=== PATIENT | female | born 1950 | race Caucasian/White ===

== ENCOUNTER 2016-07-07 14:22 | Emergency (ER) | payer MEDICAID ==
[~2016-07-07] VITALS: Ht 167.6 cm; Wt 81.0 kg
[~2016-07-07 14:22] MED LIST: AMLO5TAB96 PO; ASPI81 CHEW; BENA10TA PO; CHLO500T13 PO; GABA400 PO; LEVO.075 PO; LORTA5 PO; MVI PO; NYSTT TOPICAL; POLY119S PO; RANI150 PO; TRAZ50TA4 PO; WALKER ROLLING; WHEEMIS3 XX
[2016-07-07 14:35] VITALS: BP 136/82; PULSE 69; RESP 18; TEMP 98.1; O2SAT 96
--- NOTE | 2016-07-07 14:37 | PD ---
HPI Chief Complaint: fall, hip pain Time Seen by Provider: 14:36 Travel History International Travel<30 days: No Contact w/Intl Traveler<30days: No Traveled to known affect area: No History of Present Illness HPI 66-year-old female who has cerebral palsy and lives alone at home fell yesterday and since then has been having difficulty bearing weight on her right hip due to pain. She called 911 and was brought in by EMS. Patient is fully awake and answering questions appropriately. She points to her right hip saying it hurts. Vital signs are otherwise stable. [facility] Past Medical History Narrative Medical List of her past medical history as reviewed from the nursing note. Arthritis: No Asthma: No Autoimmune Disease: No Blood Disorders: No Anxiety: Yes Depression: Yes Heart Rhythm Problems: No Cancer: No Cardiac Catheterization: No Cardiovascular Problems: Yes High Cholesterol: No Chemotherapy: No Chest Pain: No Congestive Heart Failure: No COPD: No Cerebrovascular Accident: Yes (1979) Diabetes: No Diminished Hearing: Yes (DEAF RIGHT EAR) Endocrine: Yes GERD: No Glaucoma: No Genitourinary: Yes (INCONTINENT) Headaches: No Hypertension: Yes Immune Disorder: No Implanted Vascular Access Dvce: Yes Kidney Stones: No Musculoskeletal: Yes (CEREBRAL PALSY) Neurologic: Yes (CEREBRAL PALSY) Psychiatric: Yes (PSYCHOTIC EPISODE JUNE 28) Reproductive: No Respiratory: No Migraines: No Myocardial Infarction: No Radiation Therapy: No Renal Failure: No Seizures: No Sickle Cell Disease: No Sleep Apnea: No Thyroid Disease: Yes Ulcer: No Menopausal: Yes : 2 Para: 2 Miscarriage: 0 : 0 Past Surgical History Abdominal Surgery: No AICD: No Appendectomy: No Arteriovenous Shunt: No Cardiac Surgery: No Cholecystectomy: No Coronary Artery Bypass Graft: No Ear Surgery: No Endocrine Surgery: No Eye Surgery: No Genitourinary Surgery: Yes (BLADDER RECONSTRUCTION IN 1961) Gynecologic Surgery: No Insulin Pump: No Joint Replacement: Yes (L HIP AND L KNEE) Neurologic Surgery: No Oral Surgery: No Pacemaker: No Thoracic Surgery: No Tonsillectomy: Yes (ADENOIDECTOMY) Other Surgery: Yes Social History Alcohol Use: No Tobacco Use: No Substance Use: No (HX OF ) Allergies-Medications (Allergen,Severity, Reaction): Coded Allergies: Penicillin (Verified Allergy, Severe, PCN CAUSES HIVES PER H&P, ) Sulfa (Verified Allergy, Severe, 05/10/16) Comments List of her allergies reviewed from the nursing note. Reported Meds & Prescriptions Reported Meds & Active Scripts Active Ibuprofen 400 Mg Tab 400 Mg PO Q8H PRN Macrobid (Nitrofurantoin Monoh/Nitrofur Macro) 100 Mg Cap 100 Mg PO BID 10 Days Reported Levothyroxine (Levothyroxine Sodium) 75 Mcg Tab 75 Mcg PO HS Gabapentin 400 Mg Cap 400 Cap PO HS Trazodone (Trazodone HCl) 50 Mg Tab 50 Mg PO HS PRN Chlorzoxazone 500 Mg Tab 500 Mg PO DAILY Benazepril (Benazepril HCl) 10 Mg Tab 10 Mg PO DAILY Omeprazole 20 Mg Cap 20 Mg PO DAILY Aspirin Children's (Aspirin) 81 Mg Chew 81 Mg CHEW HS Amlodipine (Amlodipine Besylate) 5 Mg Tab 5 Mg PO DAILY Narrative Medication List of her home medications reviewed from the nursing note. Review of Systems Except as stated in HPI: all other systems reviewed are Neg Physical Exam Narrative GENERAL: Awake, alert, cerebral palsy SKIN: Warm and dry. HEAD: Atraumatic. Normocephalic. EYES: Pupils equal and round. No scleral icterus. No injection or drainage. ENT: No nasal bleeding or discharge. Mucous membranes pink and moist. NECK: Trachea midline. No JVD. CARDIOVASCULAR: Regular rate and rhythm. No murmur appreciated. RESPIRATORY: No accessory muscle use. Clear to auscultation. Breath sounds equal bilaterally. GASTROINTESTINAL: Abdomen soft, non-tender, nondistended. Hepatic and splenic margins not palpable. MUSCULOSKELETAL: Right upper extremity chronic contracture from her cerebral palsy. No clubbing. No cyanosis. No edema. Right hip tenderness NEUROLOGICAL: Awake and alert. No obvious cranial nerve deficits. Motor grossly within normal limits. Dysarthria from cerebral palsy speech. PSYCHIATRIC: Appropriate mood and affect; insight and judgment normal. Data Data Last Documented VS Vital Signs Date Time Temp Pulse Resp B/P Pulse Ox O2 Delivery O2 Flow Rate FiO2 07/07/16 14:40 61 16 136/82 96 Room Air 07/07/16 14:35 98.1 Orders Electrocardiogram (07/07/16 14:37) Complete Blood Count With Diff (07/07/16 14:37) Act Partial Throm Time (Ptt) (07/07/16 14:37) Urinalysis - C+S If Indicated (07/07/16 14:37) Chest, Single Ap (07/07/16 14:37) Hip, Uni(Ap&Lat) Wo Ap Pelvis (07/07/16 14:37) Iv Access Insert/Monitor (07/07/16 14:37) Oximetry (07/07/16 14:37) Ecg Monitoring (07/07/16 14:37) Morphine Inj (Morphine Inj) (07/07/16 14:45) Ondansetron Inj (Zofran Inj) (07/07/16 14:45) Sodium Chloride 0.9% Flush (Ns Flush) (07/07/16 14:45) Basic Metabolic Panel (Bmp) (07/07/16 14:37) Sodium Chlor 0.9% 1000 Ml Inj (Ns 1000 M (07/07/16 14:45) Ct Pelvis W/O Iv Contrast (07/07/16 ) Urine Culture (07/07/16 15:50) Nitrofurantoin Monohyd Macrocr (Macrobid (07/07/16 16:45) Labs Laboratory Tests Test 07/07/16 07/07/16 15:00 15:50 Activated Partial 29.6 SEC Thromboplast Time Sodium Level 145 MEQ/L Potassium Level 3.9 MEQ/L Chloride Level 110 MEQ/L Carbon Dioxide Level 28.6 MEQ/L Anion Gap 6 MEQ/L Blood Urea Nitrogen 22 MG/DL Creatinine 0.89 MG/DL Estimat Glomerular Filtration 64 ML/MIN Rate Random Glucose 91 MG/DL Calcium Level 9.0 MG/DL White Blood Count 8.6 TH/MM3 Red Blood Count 4.31 MIL/MM3 Hemoglobin 12.9 GM/DL Hematocrit 39.0 % Mean Corpuscular Volume 90.5 FL Mean Corpuscular Hemoglobin 29.9 PG Mean Corpuscular Hemoglobin 33.1 % Concent Red Cell Distribution Width 13.8 % Platelet Count 263 TH/MM3 Mean Platelet Volume 7.1 FL Neutrophils (%) (Auto) 79.8 % Lymphocytes (%) (Auto) 12.2 % Monocytes (%) (Auto) 5.1 % Eosinophils (%) (Auto) 2.6 % Basophils (%) (Auto) 0.3 % Neutrophils # (Auto) 6.8 TH/MM3 Lymphocytes # (Auto) 1.0 TH/MM3 Monocytes # (Auto) 0.4 TH/MM3 Eosinophils # (Auto) 0.2 TH/MM3 Basophils # (Auto) 0.0 TH/MM3 CBC Comment DIFF FINAL Differential Comment Urine Color YELLOW Urine Turbidity HAZY Urine pH 5.5 Urine Specific Evans 1.016 Urine Protein TRACE mg/dL Urine Glucose (UA) NEG mg/dL Urine Ketones NEG mg/dL Urine Occult Blood MOD Urine Nitrite POS Urine Bilirubin NEG Urine Urobilinogen LESS THAN 2.0 MG/DL Urine Leukocyte Esterase LARGE Urine RBC 14 /hpf Urine WBC 99 /hpf Urine WBC Clumps MANY Urine Bacteria MANY /hpf Urine Hyaline Casts 1 /lpf Urine Mucus FEW /lpf Microscopic Urinalysis Comment CATH-CULTURE IND MDM Medical Decision Making Medical Screen Exam Complete: Yes Emergency Medical Condition: Yes Medical Record Reviewed: Yes Interpretation(s) Twelve-lead EKG was reviewed by me. Normal sinus rhythm, left axis deviation, left bundle branch block, bradycardia. Heart rate of 58 bpm. Differential Diagnosis Hip fracture, pelvic fracture Narrative Course 3:44 PM awaiting for the x-ray to be done and resulted. Blood test results are within normal limits. 4:36 PM the x-ray was read as negative. However given her pain and inability to bear weight i have ordered a CT scan of the pelvis. Awaiting for the CAT scan to be done and resulted. Her UA is suggestive of UTI and I'll give her a dose of Macrobid. 5:[address] scan was negative for acute fracture. Patient usually ambulates with a walker and we will try to have her ambulate. Patient will be discharged. Procedures EKG Prior to Arrival: No Diagnosis Primary Impression: Fall Qualified Code: W19.XXXA - Fall, initial encounter Additional Impressions: Hip strain Qualified Code: S76.011A - Hip strain, right, initial encounter UTI (urinary tract infection) Qualified Code: N39.0 - Urinary tract infection without hematuria, site unspecified Referrals: Primary Care Physician 2 days Additional Instructions: Please return to the ER if the condition worsens or any other new concerns. Otherwise take the medication as per the prescription direction and follow-up with your primary care in couple days. Med/Other Pt SpecificInfo: Prescription(s) given Scripts Ibuprofen 400 Mg [id number] Mg PO Q8H PRN (pain) #30 TAB Ref 0 Prov:Orin Alexandre MD 07/07/16 Nitrofurantoin Monohydrate Macrocrystals (Macrobid)100 Mg [id number] Mg PO BID 10 Days Ref 0 Prov:Orin Alexandre MD 07/07/16 Disposition: 01 DISCHARGE HOME Condition: Stable Orin Alexandre MD Jul 07, 2016 14:37
[2016-07-07 14:40] VITALS: BP 136/82; PULSE 61; RESP 16; O2SAT 96
[2016-07-07] MEDS ORDERED: SODIUM CHLOR 0.9% 1000 ML INJ 1,000 ML IV ONE (14:45)
[2016-07-07] MEDS ORDERED: SODIUM CHLORIDE 0.9% FLUSH 5 ML FLUSH IVF PRN (14:45)
[2016-07-07] MEDS ORDERED: ONDANSETRON HCL 4 MG/2 ML VIAL IVP ONE (14:45)
[2016-07-07] MEDS ORDERED: MORPHINE SULFATE 4 MG/ML INJ IV PUSH ONE (14:45)
[2016-07-07 15:11] LABS: AUTOMATED NEUTROPHIL # 6.8 TH/MM3 (1.8-7.7); BASOPHIL % 0.3 % (0.0-2.0); EOSINOPHIL # 0.2 TH/MM3 (0-0.4); EOSINOPHIL % 2.6 % (0.0-4.0); HEMO FLAGS DIFF FINAL; LYMPH % 12.2 % (9.0-44.0); MEAN CELL VOLUME 90.5 FL (80.0-100.0); MEAN CORPUSCULAR HEMOGLOBIN 29.9 PG (27.0-34.0); MEAN CORPUSCULAR HGB CONC 33.1 % (32.0-36.0); MONO % 5.1 % (0.0-8.0); NEUT % 79.8 % (16.0-70.0); PLATELET COUNT 263 TH/MM3 (150-450); RED BLOOD COUNT 4.31 MIL/MM3 (4.00-5.30); RED CELL DISTRIBUTION WIDTH 13.8 % (11.6-17.2); WHITE BLOOD COUNT 8.6 TH/MM3 (4.0-11.0)
[2016-07-07 15:25] LABS: APTT (PATIENT) 29.6 SEC (24.3-30.1)
[2016-07-07 15:31] LABS: BICARBONATE 28.6 MEQ/L (21.0-32.0); POTASSIUM 3.9 MEQ/L (3.5-5.1)
--- NOTE | 2016-07-07 16:02 | RADRPT ---
EXAM DATE/TIME: 07/07/2016 15:39 [facility] COMPARISON: CHEST SINGLE AP, April 04, 2016, 16:19. INDICATIONS : Fell one week ago, pain right side MEDICAL HISTORY : cerebral palsy SURGICAL HISTORY : left hip ENCOUNTER: Initial ACUITY: 1 week PAIN SCORE: 2/10 LOCATION: Bilateral chest FINDINGS: The chest is stable in appearance. Calcified granulomas and calcified mediastinal lymph nodes are aga in noted. There is no evidence of acute air space disease or pneumothorax. The rib cage is grossly in tact. Heart and mediastinal structures are stable. CONCLUSION: No acute disease. Thom Rutherford MD on July 07, 2016 at 15:59 Board Certified Radiologist. This report was verified electronically.
--- NOTE | 2016-07-07 16:04 | RADRPT ---
EXAM DATE/TIME: 07/07/2016 15:39 [facility] COMPARISON: HIP RIGHT (AP & LAT), April 10, 2014, 17:26. INDICATIONS : Fell one week ago, pain right hip when bearing weight MEDICAL HISTORY : cerebral palsy SURGICAL HISTORY : left hip replacement ENCOUNTER: Initial ACUITY: 1 week PAIN SCORE: 6/10 LOCATION: Right hip FINDINGS: A two view examination of the right hip was performed. The primary and secondary trabecular pattern of the femoral neck is intact. The hip joint is of normal width without significant sclerosis or bon y hypertrophy. The acetabulum is grossly intact. Soft tissue granulomas are present CONCLUSION: There is no evidence of acute fracture. Je Hair MD on July 07, 2016 at 16:00 Board Certified Radiologist. This report was verified electronically.
[2016-07-07 16:15] LABS: BACTERIA, URINE MANY /hpf; BLOOD, URINE MOD (NEG); COMMENT (UR) CATH-CULTURE IND; CULTURE IF INDICATED CATH CULTURE IND; GLUCOSE,URINE NEG (NEG); HYALINE CAST, URINE 1 /lpf (RARE); KETONE, URINE NEG (NEG); MUCUS URINE FEW /lpf (OCC); PH, URINE 5.5 (5.0-8.5); URINE COLOR YELLOW (YELLW/STRAW)
[2016-07-07 16:17] LABS: NITRITE,URINE POS (NEG)
[2016-07-07] MEDS ORDERED: NITROFURANTOIN MONOHYD MACROCR 100 MG CAP PO ONE (16:45)
[2016-07-07] MEDS ORDERED: AMLO5TAB2 PO (17:07)
[2016-07-07] MEDS ORDERED: ASPI81CH7 CHEW (17:07)
[2016-07-07] MEDS ORDERED: OMEP20TA PO (17:07)
--- NOTE | 2016-07-07 17:07 | RADRPT ---
EXAM DATE/TIME: 07/07/2016 16:25 [facility] COMPARISON: No previous studies available for comparison. INDICATIONS : Fall with right leg and hip pain. ORAL CONTRAST: No oral contrast ingested. RADIATION DOSE: 12.22 CTDIvol (mGy) MEDICAL HISTORY : Hypertension. Cerebral palsy. SURGICAL HISTORY : Total knee replacement, left. Bladder reconstruction. ENCOUNTER: Initial ACUITY: 4 - 6 days PAIN SCALE: 7/10 LOCATION: Right hip TECHNIQUE: Volumetric scanning of the pelvis was performed. Using automated exposure control and adjustment of the mA and/or kV according to patient size, radiation dose was kept as low as reasonab ly achievable to obtain optimal diagnostic quality images. FINDINGS: The patient has a left hip prosthesis in place. This does cause some streak artifact i n the pelvis. An acute fracture is not clearly identified. The right hip joint appears normally ali gned. There is some degenerative change in the lower lumbar spine. There is a small amount of air seen within the bladder. This should be correlated if the patient has recently been catheterized. The remaining structures in the pelvis appear unremarkable. CONCLUSION: 1. An acute fracture is not clearly seen. 2. Air within the urinary bladder. Adam Marrero MD on July 07, 2016 at 16:58 Board Certified Radiologist. This report was verified electronically.
[2016-07-07] MEDS ORDERED: TRAZ50TA12 PO (17:11)
[2016-07-07] MEDS ORDERED: CHLO500T13 PO (17:11)
[2016-07-07] MEDS ORDERED: LEVO75TA3 PO (17:11)
[2016-07-07] MEDS ORDERED: GABA400C5 PO (17:11)
[2016-07-07] MEDS ORDERED: BENA10TA PO (17:11)
[2016-07-07] MEDS ORDERED: OMEP20CA2 PO (17:11)
[2016-07-07] MEDS ORDERED: MACR100C2 PO (17:16)
[2016-07-07] MEDS ORDERED: IBUP400T20 PO (17:16)
--- NOTE | 2016-07-08 20:38 | EKG ---
Date Performed: 07/07/2016 Time Performed: 14:48:52 PTAGE: 66 years EKG: SINUS BRADYCARDIA LEFT BUNDLE BRANCH BLOCK ABNORMAL ECG PREVIOUS TRACING : 07/28/2015 14.15 Compared to the previous tracing, rate faster DOCTOR: Jamir Quiroz Interpretating Date/Time 07/08/2016 20:37:16
== END 2016-07-07 18:44 | disposition home or self-care (01) ==
LOC: NEPA 14:22
DX: S76.011A Strain of muscle, fascia and tendon of right hip, initial encounter (principal); N39.0 Urinary tract infection, site not specified; G80.9 Cerebral palsy, unspecified; R94.31 Abnormal electrocardiogram [ECG] [EKG]; I10 Essential (primary) hypertension; E07.9 Disorder of thyroid, unspecified; W19.XXXA Unspecified fall, initial encounter; Y92.009 Unspecified place in unspecified non-institutional (private) residence as the place of occurrence of the external cause; B96.20 Unspecified Escherichia coli [E. coli] as the cause of diseases classified elsewhere
CPT/HCPCS: 71010; 72192; 73502; 80048; 81001; 85025; 85730; 87077; 87086; 87186; 93005; 96361; 96374; 96375; 99284; J2270; J2405; J7030

== ENCOUNTER 2016-08-16 12:12 | Emergency (ER) | payer MEDICAID ==
[~2016-08-16] VITALS: Ht 167.6 cm; Wt 68.0 kg
[~2016-08-16 12:12] MED LIST changes: +AMLO5TAB2 PO; -AMLO5TAB96 PO; -ASPI81 CHEW; +ASPI81CH7 CHEW; -GABA400 PO; +GABA400C5 PO; +IBUP400T20 PO; -LEVO.075 PO; +LEVO75TA3 PO; -LORTA5 PO; +MACR100C2 PO; -MVI PO; -NYSTT TOPICAL; +OMEP20CA2 PO; -POLY119S PO; -RANI150 PO; +TRAZ50TA12 PO; -TRAZ50TA4 PO; -WALKER ROLLING; -WHEEMIS3 XX
[2016-08-16 12:16] VITALS: BP 139/63; PULSE 60; RESP 20; O2SAT 99
--- NOTE | 2016-08-16 12:34 | PD ---
HPI Chief Complaint: ENT Complaint Time Seen by Provider: 12:20 Travel History International Travel<30 days: No Contact w/Intl Traveler<30days: No Traveled to known affect area: No History of Present Illness HPI This is a 66-year-old female with history of cerebral palsy who presents for evaluation of left ear cerumen impaction. She reports that she is chronically deaf in her right ear, partially deaf in her left ear. The past 6 months or left ear has felt clogged. She saw her primary care physician last month, Dr. Askew, who prescribed her some eardrops in order to help soften her cerumen impaction. She just got them filled last week and she continues to have a clog sensation in her left ear which prompted evaluation today. Denies any pain or drainage from the ear. She has no other complaints at this time. History Past Medical Histgory Menopausal: Yes Hx Cancer: No Hx Chemotherapy: No Hx Radiation Therapy: No Social History Alcohol Use: No Tobacco Use: No Allergies-Medications (Allergen,Severity, Reaction): Coded Allergies: Penicillin (Verified Allergy, Severe, PCN CAUSES HIVES PER H&P, 08/16/16 ) Sulfa (Verified Allergy, Severe, 08/16/16) Reported Meds & Prescriptions Reported Meds & Active Scripts Active Ibuprofen 400 Mg Tab 400 Mg PO Q8H PRN Macrobid (Nitrofurantoin Monoh/Nitrofur Macro) 100 Mg Cap 100 Mg PO BID 10 Days Reported Levothyroxine (Levothyroxine Sodium) 75 Mcg Tab 75 Mcg PO HS Gabapentin 400 Mg Cap 400 Cap PO HS Trazodone (Trazodone HCl) 50 Mg Tab 50 Mg PO HS PRN Chlorzoxazone 500 Mg Tab 500 Mg PO DAILY Benazepril (Benazepril HCl) 10 Mg Tab 10 Mg PO DAILY Omeprazole 20 Mg Cap 20 Mg PO DAILY Aspirin Children's (Aspirin) 81 Mg Chew 81 Mg CHEW HS Amlodipine (Amlodipine Besylate) 5 Mg Tab 5 Mg PO DAILY Review of Systems HENT: Positive: Other (decreased hearing left ear), No: Congestion, Dental Difficulties, Ear Discharge, Earache Respiratory: No: Cough Physical Exam Narrative GENERAL: Well-developed well-nourished female in no acute distress SKIN: Warm and dry. HEAD: Atraumatic. Normocephalic. EYES: Pupils equal and round. No scleral icterus. No injection or drainage. ENT: No nasal bleeding or discharge. Mucous membranes pink and moist. Right tympanic membrane is fully visualized without erythema or fluid level or perforation. Left ear examination reveals a cerumen impaction. NECK: Trachea midline. No JVD. No lymphadenopathy. CARDIOVASCULAR: Regular rate and rhythm. No murmur appreciated. RESPIRATORY: No accessory muscle use. Clear to auscultation. Breath sounds equal bilaterally. Data Data Last Documented VS Vital Signs Date Time Temp Pulse Resp B/P Pulse Ox O2 Delivery O2 Flow Rate FiO2 08/16/16 12:16 60 20 139/63 99 Room Air MDM Medical Screen Exam Complete: Yes Emergency Medical Condition: No Narrative Course This is a patient has had decreased hearing in her left ear for the past 6 months, found to have a cerumen impaction in her left ear by her primary care physician last month prescribed some topical otic drops. She now presents today with continued decreased hearing in the left ear. Examination reveals a cerumen impaction. Ideally this patient would follow up with her primary care physician and have the left ear irrigated. If she remains for treatment then the left ear will be irrigated. A medical screening exam was performed: At the time of evaluation the presenting medical condition was determined not to be of an emergent nature. The patient was given the option of receiving additional care, and accepted. The nurse successfully irrigated the left ear canal and the patient has improved hearing. She is stable for discharge. Primary Impression: Left ear impacted cerumen Additional Instructions: Follow-up with primary care physician. Return for any emergent medical conditions. Med/Other Pt SpecificInfo: No Change to Meds Disposition: 01 DISCHARGE HOME Condition: Stable Danyel Chavez Aug 16, 2016 12:34
== END 2016-08-16 14:00 | disposition home or self-care (01) ==
LOC: NEPB 12:12
DX: H61.22 Impacted cerumen, left ear (principal); G80.9 Cerebral palsy, unspecified
CPT/HCPCS: 99283

== ENCOUNTER 2016-11-27 15:18 | Observation (INO) | payer MEDICAID ==
[2016-11-27] VITALS (7 sets, daily range): BP systolic 134–168; BP diastolic 67–85; PULSE 78–81; RESP 18–20; TEMP 97.6–98.2; O2SAT 96–99
[~2016-11-27] VITALS: Ht 160 cm; Wt 60.0 kg
--- NOTE | 2016-11-27 15:31 | PD ---
Physical Exam Date Seen by Provider: Nov 27, 2016 Time Seen by Provider: 15:30 Data Data Last Documented VS Vital Signs Date Time Temp Pulse Resp B/P Pulse Ox O2 Delivery O2 Flow Rate FiO2 11/27/16 15:31 97.6 81 18 168/79 99 MDM Supervised Visit with MARLYS: No Narrative Course 66 YO F arrives by EMS for evaluation of "6 week" history of constipation. Denies abdominal pain. Endorses watery BM today. Vitals reviewed. Awaiting bed placement. Bev Caro Nov 27, 2016 15:31
[2016-11-27] MEDS ORDERED: SODIUM CHLORIDE 0.9% FLUSH 10 ML FLUSH IV FLUSH PRN ×2 (16:15→18:15)
--- NOTE | 2016-11-27 16:33 | PD ---
HPI Chief Complaint: Pain: Acute or Chronic Time Seen by Provider: 16:00 Travel History International Travel<30 days: No Contact w/Intl Traveler<30days: No Traveled to known affect area: No History of Present Illness HPI Patient comes in plan of constipation 6 weeks. Patient states she has not had a normal bowel movement in 6 weeks. Patient tried [id number]-[id number] laxatives with minimal to no relief of her symptoms. Patient states she is had a small bowel movement today but has not been able to get herself to go completely. Patient reports intermittent cramping pain in left lower quadrant of abdomen without radiation. Patient reports associated nausea but denies any vomiting. Denies any darkening of the stool. Patient states she had some liquidy stool today after taking laxatives. Patient has a history of cerebral palsy and normally ambulates with assistance of a walker. PFSH Past Medical History Arthritis: No Asthma: No Autoimmune Disease: No Blood Disorders: No Anxiety: Yes Depression: Yes Heart Rhythm Problems: No Cancer: No Cardiac Catheterization: No Cardiovascular Problems: Yes High Cholesterol: No Chemotherapy: No Chest Pain: No Congestive Heart Failure: No COPD: No Cerebrovascular Accident: Yes (1979) Diabetes: No Diminished Hearing: Yes (DEAF RIGHT EAR) Endocrine: Yes GERD: No Glaucoma: No Genitourinary: Yes (INCONTINENT) Headaches: No Hypertension: Yes Immune Disorder: No Implanted Vascular Access Dvce: Yes Kidney Stones: No Musculoskeletal: Yes (CEREBRAL PALSY) Neurologic: Yes (CEREBRAL PALSY) Psychiatric: Yes (PSYCHOTIC EPISODE JUNE 28) Reproductive: No Respiratory: No Migraines: No Myocardial Infarction: No Radiation Therapy: No Renal Failure: No Seizures: No Sickle Cell Disease: No Sleep Apnea: No Thyroid Disease: Yes Ulcer: No Menopausal: Yes : 2 Para: 2 Miscarriage: 0 : 0 Past Surgical History Abdominal Surgery: No AICD: No Appendectomy: No Arteriovenous Shunt: No Cardiac Surgery: No Cholecystectomy: No Coronary Artery Bypass Graft: No Ear Surgery: No Endocrine Surgery: No Eye Surgery: No Genitourinary Surgery: Yes (BLADDER RECONSTRUCTION IN 1961) Gynecologic Surgery: No Insulin Pump: No Joint Replacement: Yes (L HIP AND L KNEE) Neurologic Surgery: No Oral Surgery: No Pacemaker: No Thoracic Surgery: No Tonsillectomy: Yes (ADENOIDECTOMY) Other Surgery: Yes Social History Alcohol Use: No Tobacco Use: No Substance Use: No Allergies-Medications (Allergen,Severity, Reaction): Coded Allergies: Penicillin (Verified Allergy, Severe, PCN CAUSES HIVES PER H&P, 11/27/16) Sulfa (Verified Allergy, Severe, 11/27/16) Reported Meds & Prescriptions Reported Meds & Active Scripts Active Ibuprofen 400 Mg Tab 400 Mg PO Q8H PRN Reported Levothyroxine (Levothyroxine Sodium) 75 Mcg Tab 75 Mcg PO HS Gabapentin 400 Mg Cap 400 Cap PO HS Trazodone (Trazodone HCl) 50 Mg Tab 50 Mg PO HS PRN Benazepril (Benazepril HCl) 10 Mg Tab 10 Mg PO DAILY Omeprazole 20 Mg Cap 20 Mg PO DAILY Aspirin Children's (Aspirin) 81 Mg Chew 81 Mg CHEW HS Amlodipine (Amlodipine Besylate) 5 Mg Tab 5 Mg PO DAILY Review of Systems Except as stated in HPI: all other systems reviewed are Neg Physical Exam Narrative GENERAL: Well-developed, overly nourished, in no acute distress, and non-ill appearing. SKIN: Focused skin assessment warm and dry. HEAD: Atraumatic. Normocephalic. EYES: Pupils equal and round. EOMI. No scleral icterus. No injection or drainage. ENT: No nasal bleeding or discharge. Mucous membranes pink and moist. NECK: Trachea midline. Supple. No nuclear rigidity. CARDIOVASCULAR: Regular rate and rhythm. No murmur appreciated. RESPIRATORY: No accessory muscle use. No respiratory distress. Clear to auscultation. Breath sounds equal bilaterally. GASTROINTESTINAL: Abdomen soft, nondistended, without guarding. Hepatic and splenic margins not palpable. Normal bowel sounds 4. No pulsatile mass. Patient reports tenderness to palpation left lower quadrant. Rectal exam shows moderate amount of firm pebble feeling fecal debris in the rectum with liquidy greenish stool noted. This exam was performed presence of staffing assistant Ed and professional nursing tutor at all times. MUSCULOSKELETAL: No obvious deformities. No clubbing. No cyanosis. No edema. Full range of motion. NEUROLOGICAL: Awake and alert. No obvious cranial nerve deficits. Motor grossly within normal limits for patient. Normal speech for patient. PSYCHIATRIC: Appropriate mood and affect; insight and judgment normal. Data Data Last Documented VS Vital Signs Date Time Temp Pulse Resp B/P Pulse Ox O2 Delivery O2 Flow Rate FiO2 11/27/16 15:31 97.6 81 18 168/79 99 Orders Complete Blood Count With Diff (6/9/17 16:08) Comprehensive Metabolic Panel (11/27/16 16:08) Lipase (11/27/16 16:08) Prothrombin Time / Inr (Pt) (11/27/16 16:08) Act Partial Throm Time (Ptt) (11/27/16 16:08) Ct Abd/Pel W/O Iv Contrast (11/27/16 16:08) Iv Access Insert/Monitor (11/27/16 16:08) Ecg Monitoring (11/27/16 16:08) Oximetry (11/27/16 16:08) Sodium Chloride 0.9% Flush (Ns Flush) (11/27/16 16:15) Fleets Enema (Adult) (Fleets Enema (Adul (11/27/16 17:45) Admit Order (Ed Use Only) (11/27/16 18:08) Labs Laboratory Tests Test 11/27/16 16:05 White Blood Count 6.9 TH/MM3 Red Blood Count 4.66 MIL/MM3 Hemoglobin 13.2 GM/DL Hematocrit 40.4 % Mean Corpuscular Volume 86.7 FL Mean Corpuscular Hemoglobin 28.4 PG Mean Corpuscular Hemoglobin 32.7 % Concent Red Cell Distribution Width 13.6 % Platelet Count 245 TH/MM3 Mean Platelet Volume 7.9 FL Neutrophils (%) (Auto) 82.3 % Lymphocytes (%) (Auto) 10.3 % Monocytes (%) (Auto) 6.1 % Eosinophils (%) (Auto) 0.7 % Basophils (%) (Auto) 0.6 % Neutrophils # (Auto) 5.7 TH/MM3 Lymphocytes # (Auto) 0.7 TH/MM3 Monocytes # (Auto) 0.4 TH/MM3 Eosinophils # (Auto) 0.1 TH/MM3 Basophils # (Auto) 0.0 TH/MM3 CBC Comment DIFF FINAL Differential Comment Prothrombin Time 10.7 SEC Prothromb Time International 1.0 RATIO Ratio Activated Partial 26.5 SEC Thromboplast Time Sodium Level 143 MEQ/L Potassium Level 3.8 MEQ/L Chloride Level 108 MEQ/L Carbon Dioxide Level 26.8 MEQ/L Anion Gap 8 MEQ/L Blood Urea Nitrogen 15 MG/DL Creatinine 0.90 MG/DL Estimat Glomerular Filtration 63 ML/MIN Rate Random Glucose 104 MG/DL Calcium Level 9.1 MG/DL Total Bilirubin 0.5 MG/DL Aspartate Amino Transf 16 U/L (AST/SGOT) Alanine Aminotransferase 15 U/L (ALT/SGPT) Alkaline Phosphatase 79 U/L Total Protein 7.5 GM/DL Albumin 3.4 GM/DL Lipase 142 U/L MDM Medical Decision Making Medical Screen Exam Complete: Yes Emergency Medical Condition: Yes Interpretation(s) CT abdomen and pelvis shows: 1. Large bolus of stool in the rectum with air-fluid levels in the colon. 2. There is no small bowel dilatation. 3. Impaction would be a consideration. 4. Small kidneys, right smaller than left. 5. Granulomas in lung and spleen. Differential Diagnosis Constipation, fecal impaction, toxic megacolon, mass, electrolyte abnormality, dehydration, other Narrative Course Patient was seen and examined. IV was established and patient was placed on a diagnostic cardiac sonographer. Initial laboratory radiologic pulses were obtained and reviewed. Discussed patient with Dr. Bailey, who recommends giving an enema and have patient admitted for fecal impaction. Discussed all findings and plan care of patient was agreeable for admission. All questions were answered. Patient remained stable throughout ED course. Physician Communication Physician Communication [phone] Paul, who is agreeable to admit the patient. Diagnosis Primary Impression: Impaction of colon Admitting Information Admitting Physician Requests: Observation Condition: Stable Alex Espinosa Nov 27, 2016 16:33
[2016-11-27 16:43] LABS: AUTOMATED NEUTROPHIL # 5.7 TH/MM3 (1.8-7.7); BASOPHIL % 0.6 % (0.0-2.0); EOSINOPHIL # 0.1 TH/MM3 (0-0.4); EOSINOPHIL % 0.7 % (0.0-4.0); HEMATOCRIT 40.4 % (35.0-46.0); HEMO FLAGS DIFF FINAL; LYMPH % 10.3 % (9.0-44.0); LYMPHOCYTE # 0.7 TH/MM3 (1.0-4.8); MEAN CELL VOLUME 86.7 FL (80.0-100.0); MEAN CORPUSCULAR HEMOGLOBIN 28.4 PG (27.0-34.0); MEAN CORPUSCULAR HGB CONC 32.7 % (32.0-36.0); MONO % 6.1 % (0.0-8.0); NEUT % 82.3 % (16.0-70.0); PLATELET COUNT 245 TH/MM3 (150-450); RED BLOOD COUNT 4.66 MIL/MM3 (4.00-5.30); RED CELL DISTRIBUTION WIDTH 13.6 % (11.6-17.2); WHITE BLOOD COUNT 6.9 TH/MM3 (4.0-11.0)
[2016-11-27 16:54] LABS: APTT (PATIENT) 26.5 SEC (24.3-30.1); PROTHROMBIN TIME - PATIENT 10.7 SEC (9.8-11.6)
[2016-11-27 17:00] LABS: ANION GAP 8 MEQ/L (5-15); AST (GOT) 16 U/L (15-37); BICARBONATE 26.8 MEQ/L (21.0-32.0); BLOOD UREA NITROGEN 15 MG/DL (7-18); CHLORIDE 108 MEQ/L (98-107); GLOMERULAR FILTRATION RATE 63 ML/MIN (>89); POTASSIUM 3.8 MEQ/L (3.5-5.1); SODIUM (NA) 143 MEQ/L (136-145)
[2016-11-27 17:02] LABS: ALKALINE PHOSPHATASE 79 U/L (45-117); ALT (GPT) 15 U/L (10-53); TOTAL BILIRUBIN ADULT 0.5 MG/DL (0.2-1.0)
--- NOTE | 2016-11-27 17:36 | RADRPT ---
EXAM DATE/TIME: 11/27/2016 16:58 [place] COMPARISON: No previous studies available for comparison. INDICATIONS : Constipation for 6 weeks. ORAL CONTRAST: No oral contrast ingested. RADIATION DOSE: 10.42 CTDIvol (mGy) MEDICAL HISTORY : Cerebrovascular disease. Cardiovascular disease. Hypertension. SURGICAL HISTORY : None. ENCOUNTER: Initial ACUITY: 2 months PAIN SCALE: 0/10 LOCATION: Bilateral abdomen. TECHNIQUE: Volumetric scanning of the abdomen and pelvis was performed. Using automated exposure control and ad justment of the mA and/or kV according to patient size, radiation dose was kept as low as reasonably achievable to obtain optimal diagnostic quality images. FINDINGS: Scattered granulomas are seen in both lungs that appear well calcified. There is no pericardial effusion. Multiple gallstones are noted, congregated in the neck of the gallbladder. Liver is free of focal defects. Granulomas are present in the spleen. Pancreas is unremarkable. Th ere is no intrahepatic biliary duct dilatation. Adrenal glands appear normal. Both kidneys are small, right smaller than the left. A nonobstructing stone is seen on the right. Moderate liquid stool is seen in the ascending and transverse colon. Solid stool is seen in the desc ending colon into the pelvis. Multiple diverticula are evident without diverticulitis. Large bolus of stool is present in the rectum. There is no significant small bowel dilatation. CONCLUSION: 1. Large bolus of stool in the rectum with air-fluid levels in the colon. 2. There is no small bowel dilatation. 3. Impaction would be a consideration. 4. Small kidneys, right smaller than left. 5. Granulomas in lung and spleen. Danielito Jimenez MD FACR on November 27, 2016 at 17:23 Board Certified Radiologist. This report was verified electronically.
[2016-11-27] MEDS ORDERED: SOD PHOSPHATE/SOD BIPHOSPHATE (ADULT) ENEMA 133ML RECTAL ONE (17:45)
[2016-11-27] MEDS ORDERED: ACETAMINOPHEN/HYDROcodone 325 MG/7.5 MG TAB PO PRN (18:15)
[2016-11-27] MEDS ORDERED: NALOXONE HCL 0.4 MG/ML AMP IV PRN (18:15)
[2016-11-27] MEDS ORDERED: ACETAMINOPHEN 325 MG TAB PO PRN (18:15)
[2016-11-27] MEDS ORDERED: ONDANSETRON HCL 4 MG/2 ML VIAL IVP PRN (18:15)
[2016-11-27] MEDS ORDERED: SENNOSIDES 8.6 MG TAB PO PRN (18:15)
[2016-11-27] MEDS ORDERED: BISACODYL 10 MG SUPP RECTAL PRN (18:15)
[2016-11-27] MEDS ORDERED: traZODone HCL 50 MG TAB PO PRN (18:15)
[2016-11-27] MEDS ORDERED: LACTULOSE SYRUP 20 GM/30 ML CUP PO PRN (18:15)
[2016-11-27] MEDS ORDERED: oxyCODONE/ACETAMINOPHEN 5 MG/325 MG TAB PO PRN (18:15)
[2016-11-27] MEDS ORDERED: MORPHINE SULFATE 4 MG/ML INJ IV PRN ×2 (18:15)
[2016-11-27] MEDS ORDERED: MAGNESIUM HYDROXIDE SUSP 30 ML CUP PO PRN (18:15)
[2016-11-27] MEDS: SODIUM CHLOR 0.9% 1000 ML INJ 1,000 ML IV SCH (19:11)
--- NOTE | 2016-11-27 19:49 | HHI.HP ---
HPI Service [facility] Primary Care Physician Terence Askew DO Admission Diagnosis fecal impaction Diagnoses: (1) Fecal impaction Diagnosis: Principal (2) Dehydration Diagnosis: Principal (3) HTN (hypertension) Diagnosis: Principal Travel History International Travel<30 Days: No Contact w/Intl Traveler <30 Da: No Traveled to Known Affected Are: No History of Present Illness This is a 66-year-old female with a PMH of Anxiety, Depression, HTN, Cerebral Palsy and h/o CVA who presented to the ER w/ complaints of constipation x6 wks. States she's tried multiple over the counter medications w/ no relief. Reports associated abdominal pain and nausea, but no vomiting or diarrhea. On arrival, BP 168/79, HR 81, O2 sat 99% on RA, Afebrile. CBC unremarkable except for elevated neutrophil count. Chemistry unremarkable except for GFR 63. BUN/ Creatinine normal. INR 1.0. CT Abd/Pelvis w/ large bolus of stool in the rectum with air fluid levels in the colon, no small bowel dilatation, consideration for impaction. S/p enema in ER w/ minimal improvement. GI Consult called in by ER doc. Review of Systems Except as stated in HPI: all other systems reviewed are Neg ROS: 14 point review of systems otherwise negative. Past Family Social History Past Medical History PMH: Anxiety, Depression, HTN, Cerebral Palsy and h/o CVA Past Surgical History PAST SURGICAL HISTORY: Bladder Reconstruction, Left Hip Replacement, Left Knee Replacement, Tonsillectomy Allergies: Coded Allergies: Penicillin (Verified Allergy, Severe, PCN CAUSES HIVES PER H&P, 11/27/16) Sulfa (Verified Allergy, Severe, 11/27/16) Family History PAST FAMILY HISTORY: Reviewed. No h/o DM or CAD Social History PAST SOCIAL HISTORY: Negative for alcohol, tobacco or drugs. Physical Exam Vital Signs Vital Signs Date Time Temp Pulse Resp B/P Pulse Ox O2 Delivery O2 Flow Rate FiO2 11/27/16 19:34 99 21 11/27/16 19:20 78 18 160/80 99 11/27/16 18:35 80 20 166/85 96 11/27/16 16:40 96 11/27/16 15:31 97.6 81 18 168/79 99 Physical Exam PE: GENERAL: Middle-aged female in no acute distress. HEENT: PERRLA, EOMI. No scleral icterus or conjunctival pallor. No lid lag or facial droop. CARDIOVASCULAR: Regular rate and rhythm. No obvious murmurs to auscultation. No chest tenderness to palpation. RESPIRATORY: No obvious rhonchi or wheezing. Clear to auscultation. Breath sounds equal bilaterally. GASTROINTESTINAL: Abdomen soft, mild generalized tenderness to palpation, nondistended. BS normal. MUSCULOSKELETAL: Extremities without clubbing, cyanosis, or edema. No obvious deformities. NEUROLOGICAL: Awake, alert and oriented x4. No focal neurologic deficits. Moving both upper and lower extremities spontaneously. Laboratory Laboratory Tests Test 11/27/16 16:05 White Blood Count 6.9 Red Blood Count 4.66 Hemoglobin 13.2 Hematocrit 40.4 Mean Corpuscular Volume 86.7 Mean Corpuscular Hemoglobin 28.4 Mean Corpuscular Hemoglobin 32.7 Concent Red Cell Distribution Width 13.6 Platelet Count 245 Mean Platelet Volume 7.9 Neutrophils (%) (Auto) 82.3 Lymphocytes (%) (Auto) 10.3 Monocytes (%) (Auto) 6.1 Eosinophils (%) (Auto) 0.7 Basophils (%) (Auto) 0.6 Neutrophils # (Auto) 5.7 Lymphocytes # (Auto) 0.7 Monocytes # (Auto) 0.4 Eosinophils # (Auto) 0.1 Basophils # (Auto) 0.0 CBC Comment DIFF FINAL Differential Comment Prothrombin Time 10.7 Prothromb Time International 1.0 Ratio Activated Partial 26.5 Thromboplast Time Sodium Level 143 Potassium Level 3.8 Chloride Level 108 Carbon Dioxide Level 26.8 Anion Gap 8 Blood Urea Nitrogen 15 Creatinine 0.90 Estimat Glomerular Filtration 63 Rate Random Glucose 104 Calcium Level 9.1 Total Bilirubin 0.5 Aspartate Amino Transf 16 (AST/SGOT) Alanine Aminotransferase 15 (ALT/SGPT) Alkaline Phosphatase 79 Total Protein 7.5 Albumin 3.4 Lipase 142 Result Diagram: 11/27/16 160 11/27/16 1605 Assessment and Plan Problem List: (1) Fecal impaction ICD Code: K56.41 Status: Acute (2) Dehydration ICD Code: E86.0 Status: Acute (3) HTN (hypertension) ICD Code: I10 Status: Acute Assessment and Plan A/P: 1. Fecal Impaction: c/o constipation x6 wks, CT Abd/Pelvis w/ large bolos of stool in rectum with air fluid levels in the colon, no small bowel dilatation a consideration for impaction, images reviewed by me. S/p Enema in ER, GI Consult placed by ER physician. Start IVF, Lactulose, Miralax, Suppository as needed. 2. Dehydration: GFR 63, BUN, Creatinine normal. Will start IVF, repeat labs in a.m. 3. HTN: BP 160's, resume home Benazepril, Norvasc. Monitor BP. 4. DVT Prophylaxis: SCD/Teds. 5. Social work for d/c planning as needed. 6. Case discussed w/ ER physician at length Leona Gaffney MD Nov 27, 2016 19:49
[2016-11-27] MEDS: DOCUSATE SODIUM 50 MG/SENNA 8.6 MG TAB PO SCH (21:00)
[2016-11-27] MEDS: SODIUM CHLORIDE 0.9% FLUSH 10 ML FLUSH IV FLUSH SCH (21:32)
[2016-11-27] MEDS: LEVOTHYROXINE SODIUM 75 MCG TAB PO SCH (21:32)
[2016-11-27] MEDS: ASPIRIN 81 MG CHEW TAB CHEW SCH (21:32)
[2016-11-27] MEDS: HEPARIN SODIUM - SQ 10,000 UNITS/ML VIAL SQ SCH (21:39)
[2016-11-28] VITALS (7 sets, daily range): BP systolic 120–160; BP diastolic 67–86; PULSE 71–82; RESP 16–18; TEMP 98.1–98.4; O2SAT 93–98
[2016-11-28] MEDS: SODIUM CHLOR 0.9% 1000 ML INJ 1,000 ML IV SCH (04:08)
[2016-11-28] MEDS: HEPARIN SODIUM - SQ 10,000 UNITS/ML VIAL SQ SCH ×3 (06:16→20:51)
[2016-11-28 07:43] LABS: AUTOMATED NEUTROPHIL # 5.9 TH/MM3 (1.8-7.7); BASOPHIL % 0.3 % (0.0-2.0); EOSINOPHIL # 0.1 TH/MM3 (0-0.4); EOSINOPHIL % 1.1 % (0.0-4.0); HEMATOCRIT 39.4 % (35.0-46.0); HEMO FLAGS DIFF FINAL; LYMPH % 9.8 % (9.0-44.0); LYMPHOCYTE # 0.7 TH/MM3 (1.0-4.8); MEAN CORPUSCULAR HEMOGLOBIN 28.6 PG (27.0-34.0); MEAN CORPUSCULAR HGB CONC 32.9 % (32.0-36.0); MONO % 7.7 % (0.0-8.0); NEUT % 81.1 % (16.0-70.0); PLATELET COUNT 212 TH/MM3 (150-450); RED BLOOD COUNT 4.53 MIL/MM3 (4.00-5.30); RED CELL DISTRIBUTION WIDTH 13.5 % (11.6-17.2); WHITE BLOOD COUNT 7.2 TH/MM3 (4.0-11.0)
[2016-11-28 08:03] LABS: BICARBONATE 22.1 MEQ/L (21.0-32.0); POTASSIUM 3.3 MEQ/L (3.5-5.1)
--- NOTE | 2016-11-28 08:09 | HHI.PR ---
Subjective Remarks Follow up for constipation/fecal impaction. The patient and RN reports multiple BMs overnight. She also reported urinary retention overnight, relieved by straight cath with 550cc output. The patient reports feeling much better. She does report some nausea but no vomiting. Denies fevers/chills. She has not yet attempted oral intake. Objective Vitals Vital Signs Date Time Temp Pulse Resp B/P Pulse Ox O2 Delivery O2 Flow Rate FiO2 11/28/16 03:17 98.1 71 18 139/70 98 11/27/16 23:35 98.1 80 18 165/72 96 11/27/16 20:48 98.2 79 18 134/67 99 11/27/16 19:34 99 21 11/27/16 19:20 78 18 160/80 99 11/27/16 18:35 80 20 166/85 96 11/27/16 16:40 96 11/27/16 15:31 97.6 81 18 168/79 99 Result Diagram: 11/28/16 0723 11/27/16 1605 Imaging Last Impressions Abdomen/Pelvis CT 11/27/16 1608 Signed Impressions: Service Date/Time: Sunday, November 27, 2016 16:58 - CONCLUSION: 1. Large bolus of stool in the rectum with air-fluid levels in the colon. 2. There is no small bowel dilatation. 3. Impaction would be a consideration. 4. Small kidneys, right smaller than left. 5. Granulomas in lung and spleen. Danielito Jimenez MD FACR Objective Remarks GENERAL: Well-nourished, well-developed middle aged female patient in [facility]. SKIN: Warm and dry. No rash. HEENT: Normocephalic. Atraumatic. Pupils equal and round. Mucous membranes pink and moist. NECK: Supple. Trachea midline. CARDIOVASCULAR: Regular rate and rhythm. S1, S2 noted. No murmur appreciated. RESPIRATORY: No accessory muscle use. Clear to auscultation. Breath sounds equal bilaterally. GASTROINTESTINAL: Abdomen soft, nondistended, nontender today. Normoactive bowel sounds x4. MUSCULOSKELETAL: No obvious deformities. Extremities without clubbing, cyanosis , or edema. NEUROLOGICAL: Awake and alert. No obvious cranial nerve deficits. Motor grossly within normal limits. Normal speech. Medications and IVs Current Medications Medications (Trade) Dose Ordered Sig/Mykel Route Start Time Stop Time Status Last Admin (NS 1000 ml Inj) 1,000 ml @ 100 mls/hr Q10H IV 11/27/16 18:08 11/27/16 19:11 (NS Flush) 2 ml UNSCH PRN IV FLUSH 11/27/16 18:15 (NS Flush) 2 ml BID IV FLUSH 11/27/16 21:00 11/27/16 21:32 (Tylenol) 650 mg Q4H PRN PO 11/27/16 18:15 (Zofran Inj) 4 mg Q6H PRN IVP 11/27/16 18:15 (Heparin Inj) 5,000 units Q8H SQ 11/27/16 20:00 11/28/16 06:16 ([place] 7.5-325 Mg) 1 tab Q4H PRN PO 11/27/16 18:15 (Percocet 5-325 Mg) 1 tab Q6H PRN PO 11/27/16 18:15 (Morphine Inj) 2 mg Q3H PRN IV 11/27/16 18:15 (Morphine Inj) 4 mg Q3H PRN IV 11/27/16 18:15 (Narcan Inj) 0.4 mg UNSCH PRN IV 11/27/16 18:15 (Liza-Colace) 1 tab BID PO 11/27/16 21:00 (Milk Of Magnesia Liq) 30 ml Q12H PRN PO 11/27/16 18:15 (Senokot) 17.2 mg Q12H PRN PO 11/27/16 18:15 (Dulcolax Supp) 10 mg DAILY PRN RECTAL 11/27/16 18:15 (Lactulose Liq) 30 ml DAILY PRN PO 11/27/16 18:15 (Norvasc) 5 mg DAILY PO 11/28/16 09:00 (Aspirin Chew) 81 mg HS CHEW 11/27/16 21:00 11/27/16 21:32 (Prinivil) 10 mg DAILY PO 11/28/16 09:00 (Synthroid) 75 mcg HS PO 11/27/16 21:00 11/27/16 21:32 (Desyrel) 50 mg HS PRN PO 11/27/16 18:15 (Protonix) 20 mg DAILY PO 11/28/16 09:00 A/P Problem List: (1) Fecal impaction ICD Code: K56.41 Status: Acute (2) Dehydration ICD Code: E86.0 Status: Acute (3) HTN (hypertension) ICD Code: I10 Status: Acute Assessment and Plan 66-year-old female with a PMH of Anxiety, Depression, HTN, Cerebral Palsy and h/ o CVA who presented to the ER w/ complaints of constipation x6 wks. Fecal Impaction: severe constipation x6 wks. CT Abd/Pelvis w/ large bolos of stool in rectum with air fluid levels in the colon, no small bowel dilatation a consideration for impaction, images reviewed by me. S/p Enema in ER. GI Consult placed by ER physician. Given IVF. Start on daily Miralax. Suppository as needed. Dehydration: GFR 63, BUN, Creatinine normal. S/p IVF. Repeat labs today show improvement, GFR 84. D/c fluids. HTN: BP 160's, resumed home Benazepril, Norvasc. Monitor BP, fairly well controlled. DVT Prophylaxis: SCD/Teds. Discharge Planning Possible discharge today if patient tolerating oral intake and cleared by GI. Amanda Simental PA-C Nov 28, 2016 8:09 am
[2016-11-28] MEDS: PANTOPRAZOLE SOD 20 MG DELAYED RELEASE TAB PO SCH (08:43)
[2016-11-28] MEDS: amLODIPine BESYLATE 5 MG TAB PO SCH (08:43)
[2016-11-28] MEDS: LISINOPRIL 10 MG TAB PO SCH (08:44)
[2016-11-28] MEDS: SODIUM CHLORIDE 0.9% FLUSH 10 ML FLUSH IV FLUSH SCH ×2 (08:45→20:52)
[2016-11-28] MEDS: DOCUSATE SODIUM 50 MG/SENNA 8.6 MG TAB PO SCH ×2 (08:45→20:51)
[2016-11-28] MEDS: POLYETHYLENE GLYCOL 17 GM PKG PO SCH (08:48)
[2016-11-28] MEDS ORDERED: SOD PHOSPHATE/SOD BIPHOSPHATE (ADULT) ENEMA 133ML PR ONE (09:00)
--- NOTE | 2016-11-28 10:27 | PD.CONS ---
HPI History of Present Illness This is a 66 year old female with PMH of Anxiety, depression, HTN, Cerebral Palsy and CVA who presented to the ER w/ complaints of constipation x6 wks. Patient since has moved her bowels almost 8 times s/p enema X 1, lactulose, liza Colace, Dulcolax supp. and Senokot. Patient is poor historian, constipation is chronic issue for her and she is not on daily regimen at home, states she tried Dulcolax at home with out relief. She reports associated nausea. Denies vomiting, hematemesis, abd pain, hematochezia or melena. She denies having colonoscopy. CT Abd/Pelvis w/ large bolus of stool in the rectum with air fluid levels in the colon, no small bowel dilatation, consideration for impaction. She had urinary retention as well, s/p straight cath. (Marcelo Fortune) PFSH Past Medical History PMH: Anxiety, Depression, HTN, Cerebral Palsy and h/o CVA Past Surgical History PAST SURGICAL HISTORY: Bladder Reconstruction, Left Hip Replacement, Left Knee Replacement, Tonsillectomy (Marcelo Fortune) Coded Allergies: Penicillin (Verified Allergy, Severe, PCN CAUSES HIVES PER H&P, 11/27/16) Sulfa (Verified Allergy, Severe, 11/27/16) Medications Current Medications Medications (Trade) Dose Ordered Sig/Mykel Route Start Time Stop Time Status Last Admin (NS Flush) 2 ml UNSCH PRN IV FLUSH 11/27/16 18:15 (NS Flush) 2 ml BID IV FLUSH 11/27/16 21:00 11/28/16 08:45 (Tylenol) 650 mg Q4H PRN PO 11/27/16 18:15 (Zofran Inj) 4 mg Q6H PRN IVP 11/27/16 18:15 (Heparin Inj) 5,000 units Q8H SQ 11/27/16 20:00 11/28/16 06:16 ([place] 7.5-325 Mg) 1 tab Q4H PRN PO 11/27/16 18:15 (Percocet 5-325 Mg) 1 tab Q6H PRN PO 11/27/16 18:15 (Morphine Inj) 2 mg Q3H PRN IV 11/27/16 18:15 (Morphine Inj) 4 mg Q3H PRN IV 11/27/16 18:15 (Narcan Inj) 0.4 mg UNSCH PRN IV 11/27/16 18:15 (Liza-Colace) 1 tab BID PO 11/27/16 21:00 (Milk Of Magnesia Liq) 30 ml Q12H PRN PO 11/27/16 18:15 (Senokot) 17.2 mg Q12H PRN PO 11/27/16 18:15 (Dulcolax Supp) 10 mg DAILY PRN RECTAL 11/27/16 18:15 (Lactulose Liq) 30 ml DAILY PRN PO 11/27/16 18:15 (Norvasc) 5 mg DAILY PO 11/28/16 09:00 11/28/16 08:43 (Aspirin Chew) 81 mg HS CHEW 11/27/16 21:00 11/27/16 21:32 (Prinivil) 10 mg DAILY PO 11/28/16 09:00 11/28/16 08:44 (Synthroid) 75 mcg HS PO 11/27/16 21:00 11/27/16 21:32 (Desyrel) 50 mg HS PRN PO 11/27/16 18:15 (Protonix) 20 mg DAILY PO 11/28/16 09:00 11/28/16 08:43 (Miralax) 17 gm DAILY PO 11/28/16 09:00 Family History No family hx of colon cancer Social History PAST SOCIAL HISTORY: Negative for alcohol, tobacco or drugs. (Marcelo Fortune ) Review of Systems Constitutional: COMPLAINS OF: Fatigue Endocrine: DENIES: Polyuria Eyes: DENIES: Double Vision Ears, nose, mouth, throat: DENIES: Hoarseness Respiratory: DENIES: Shortness of breath Cardiovascular: DENIES: Lower Extremity Edema Gastrointestinal: COMPLAINS OF: Constipation, Nausea, DENIES: Abdominal pain, Black stools, Bloody stools, Vomiting, Difficulty Swallowing, Anorexia, Swelling of Abdomen, Heartburn, Hematemesis Genitourinary: DENIES: Hematuria Musculoskeletal: DENIES: Neck pain Integumentary: DENIES: Jaundice Hematologic/lymphatic: DENIES: Bruising Immunologic/allergic: DENIES: Eczema Neurologic: DENIES: Abnormal gait Psychiatric: COMPLAINS OF: Anxiety (Amawi,Khawla PAPERHANGER ASSISTANT) GI Exam Vitals I&O Vital Signs Date Time Temp Pulse Resp B/P Pulse Ox O2 Delivery O2 Flow Rate FiO2 11/28/16 08:37 98.4 77 16 140/86 94 11/28/16 03:17 98.1 71 18 139/70 98 11/27/16 23:35 98.1 80 18 165/72 96 11/27/16 20:48 98.2 79 18 134/67 99 11/27/16 19:34 99 21 11/27/16 19:20 78 18 160/80 99 11/27/16 18:35 80 20 166/85 96 11/27/16 16:40 96 11/27/16 15:31 97.6 81 18 168/79 99 Imaging Last Impressions Abdomen/Pelvis CT 11/27/16 1608 Signed Impressions: Service Date/Time: Sunday, November 27, 2016 16:58 - CONCLUSION: 1. Large bolus of stool in the rectum with air-fluid levels in the colon. 2. There is no small bowel dilatation. 3. Impaction would be a consideration. 4. Small kidneys, right smaller than left. 5. Granulomas in lung and spleen. Danielito Jimenez MD FACR Laboratory Test 11/27/16 11/28/16 16:05 07:23 White Blood Count 6.9 TH/MM3 7.2 TH/MM3 Red Blood Count 4.66 MIL/MM3 4.53 MIL/MM3 Hemoglobin 13.2 GM/DL 13.0 GM/DL Hematocrit 40.4 % 39.4 % Mean Corpuscular Volume 86.7 FL 87.0 FL Mean Corpuscular Hemoglobin 28.4 PG 28.6 PG Mean Corpuscular Hemoglobin 32.7 % 32.9 % Concent Red Cell Distribution Width 13.6 % 13.5 % Platelet Count 245 TH/MM3 212 TH/MM3 Mean Platelet Volume 7.9 FL 7.4 FL Neutrophils (%) (Auto) 82.3 % 81.1 % Lymphocytes (%) (Auto) 10.3 % 9.8 % Monocytes (%) (Auto) 6.1 % 7.7 % Eosinophils (%) (Auto) 0.7 % 1.1 % Basophils (%) (Auto) 0.6 % 0.3 % Neutrophils # (Auto) 5.7 TH/MM3 5.9 TH/MM3 Lymphocytes # (Auto) 0.7 TH/MM3 0.7 TH/MM3 Monocytes # (Auto) 0.4 TH/MM3 0.6 TH/MM3 Eosinophils # (Auto) 0.1 TH/MM3 0.1 TH/MM3 Basophils # (Auto) 0.0 TH/MM3 0.0 TH/MM3 CBC Comment DIFF FINAL DIFF FINAL Differential Comment Prothrombin Time 10.7 SEC Prothromb Time International 1.0 RATIO Ratio Activated Partial 26.5 SEC Thromboplast Time Sodium Level 143 MEQ/L 144 MEQ/L Potassium Level 3.8 MEQ/L 3.3 MEQ/L Chloride Level 108 MEQ/L 110 MEQ/L Carbon Dioxide Level 26.8 MEQ/L 22.1 MEQ/L Anion Gap 8 MEQ/L 12 MEQ/L Blood Urea Nitrogen 15 MG/DL 15 MG/DL Creatinine 0.90 MG/DL 0.70 MG/DL Estimat Glomerular Filtration 63 ML/MIN 84 ML/MIN Rate Random Glucose 104 MG/DL 99 MG/DL Calcium Level 9.1 MG/DL 8.7 MG/DL Total Bilirubin 0.5 MG/DL Aspartate Amino Transf 16 U/L (AST/SGOT) Alanine Aminotransferase 15 U/L (ALT/SGPT) Alkaline Phosphatase 79 U/L Total Protein 7.5 GM/DL Albumin 3.4 GM/DL Lipase 142 U/L Physical Examination HEENT: normocephalic; atraumatic; no jaundice. NECK: Neck is supple, no JVD, no lymphadenopathy. CHEST: Chest is clear to auscultation and percussion. CARDIAC: Regular rate and rhythm with no murmur gallop or rubs. ABDOMEN: Soft, nondistended, nontender; no hepatosplenomegaly; bowel sounds are present in all four quadrants. EXTREMITIES: No clubbing, cyanosis, or edema. SKIN: Normal; no rash; no jaundice. PARKING ANALYST: No focal deficits; alert and oriented times three. (Tong,Marcelo PAPERHANGER ASSISTANT) Assessment and Plan Plan - Constipation X 6 weeks- good results ( 8 BMs in chart) s/p enema X 1, lactulose, liza Colace, Dulcolax supp. and Senokot. Patient is poor historian, states she tried Dulcolax at home with out relief. She reports associated nausea. Denies vomiting, hematemesis, abd pain, hematochezia or melena. She denies having colonoscopy. CT Abd/Pelvis w/ large bolus of stool in the rectum with air fluid levels in the colon, no small bowel dilatation, consideration for impaction. - Urinary retention- s/p straight cath - Dehydration- elevated BUN, improving - HTN, Cerebral palsy per attending Plan: - APRIL - Cont. bowel regimen - Consider colonoscopy on Wednesday, but this could be done as an OP, at she is moving her bowels - Supportive care - Patient seen and examined by and myself and this note is written on his behalf. (Marcelo Fortune) Physician Comments Patient seen and examined Agree with above Continue with current supportive care Monitor labs Colonoscopy on Wednesday if patient still in the hospital otherwise it will be outpatient (Ti Robles MD) Marcelo Fortune Nov 28, 2016 10:27 Ti Robles MD Nov 28, 2016 13:36
[2016-11-28] MEDS: ASPIRIN 81 MG CHEW TAB CHEW SCH (20:51)
[2016-11-28] MEDS: LEVOTHYROXINE SODIUM 75 MCG TAB PO SCH (20:51)
[2016-11-29 03:25] VITALS: BP 149/67; PULSE 68; RESP 18; TEMP 98.2; O2SAT 95
[2016-11-29] MEDS: HEPARIN SODIUM - SQ 10,000 UNITS/ML VIAL SQ SCH (03:29)
[2016-11-29] MEDS ORDERED: POTASSIUM CHLORIDE 20 MEQ CONTROLLED RELEASE TAB PO ONE (07:30)
[2016-11-29 08:17] VITALS: BP 149/60; PULSE 60; RESP 20; TEMP 97.8; O2SAT 95
[2016-11-29] MEDS: PANTOPRAZOLE SOD 20 MG DELAYED RELEASE TAB PO SCH (08:30)
[2016-11-29] MEDS: POLYETHYLENE GLYCOL 17 GM PKG PO SCH (08:31)
[2016-11-29] MEDS: amLODIPine BESYLATE 5 MG TAB PO SCH (08:31)
[2016-11-29] MEDS: LISINOPRIL 10 MG TAB PO SCH (08:31)
[2016-11-29] MEDS: SODIUM CHLORIDE 0.9% FLUSH 10 ML FLUSH IV FLUSH SCH ×2 (08:31→20:04)
[2016-11-29] MEDS: DOCUSATE SODIUM 50 MG/SENNA 8.6 MG TAB PO SCH ×2 (08:31→20:04)
[2016-11-29] MEDS ORDERED: LACTULOSE SYRUP 20 GM/30 ML CUP PO ONE (09:30)
--- NOTE | 2016-11-29 10:03 | HHI.PR ---
Subjective Remarks Follow up for fecal impaction/constipation, urinary retention. The patient reports continued diffuse lower abdominal pain today. She states she has had minimal bowel movements overnight with only small amounts of loose stool. Denies nausea/vomiting. Denies fevers/chills. She is tolerating oral intake. She does not feel comfortable going home and would like to stay overnight for colonoscopy tomorrow. Objective Vitals Vital Signs Date Time Temp Pulse Resp B/P Pulse Ox O2 Delivery O2 Flow Rate FiO2 11/29/16 08:17 97.8 60 20 149/60 95 11/29/16 03:25 98.2 68 18 149/67 95 11/28/16 23:31 98.2 72 18 155/78 93 11/28/16 20:48 98 11/28/16 19:31 98.3 82 18 160/75 98 11/28/16 15:41 98.4 77 16 120/67 94 11/28/16 12:26 98.4 74 18 142/75 97 I/O 11/28/16 11/28/16 11/28/16 11/29/16 11/29/16 11/29/16 07:00 15:00 23:00 07:00 15:00 23:00 Intake Total 240 ml Output Total 1101 ml 800 ml 200 ml Balance -861 ml -800 ml -200 ml Intake Oral 240 ml Output Urine Total 1100 ml 800 ml 200 ml Stool Total 1 ml Bladder Scan Volume Amount 621 ml 999 ml # Voids 0 # Bowel Movements 7 2 Result Diagram: 11/28/16 0723 11/28/16 0723 Imaging Last Impressions Abdomen/Pelvis CT 11/27/16 1608 Signed Impressions: Service Date/Time: Sunday, November 27, 2016 16:58 - CONCLUSION: 1. Large bolus of stool in the rectum with air-fluid levels in the colon. 2. There is no small bowel dilatation. 3. Impaction would be a consideration. 4. Small kidneys, right smaller than left. 5. Granulomas in lung and spleen. Danielito Jimenez MD FACR Objective Remarks GENERAL: Well-nourished, well-developed middle aged female patient in [facility]. SKIN: Warm and dry. No rash. HEENT: Normocephalic. Atraumatic. Pupils equal and round. Mucous membranes pink and moist. NECK: Supple. Trachea midline. CARDIOVASCULAR: Regular rate and rhythm. S1, S2 noted. No murmur appreciated. RESPIRATORY: No accessory muscle use. Clear to auscultation. Breath sounds equal bilaterally. GASTROINTESTINAL: Abdomen soft, nondistended, diffuse lower abdominal TTP. Normoactive bowel sounds x4. MUSCULOSKELETAL: No obvious deformities. Extremities without clubbing, cyanosis , or edema. NEUROLOGICAL: Awake and alert. No obvious cranial nerve deficits. Motor grossly within normal limits. Normal speech. Medications and IVs Current Medications Medications (Trade) Dose Ordered Sig/Mykel Route Start Time Stop Time Status Last Admin (NS Flush) 2 ml UNSCH PRN IV FLUSH 11/27/16 18:15 (NS Flush) 2 ml BID IV FLUSH 11/27/16 21:00 11/29/16 08:31 (Tylenol) 650 mg Q4H PRN PO 11/27/16 18:15 (Zofran Inj) 4 mg Q6H PRN IVP 11/27/16 18:15 (Heparin Inj) 5,000 units Q8H SQ 11/27/16 20:00 11/29/16 03:29 ([place] 7.5-325 Mg) 1 tab Q4H PRN PO 11/27/16 18:15 (Percocet 5-325 Mg) 1 tab Q6H PRN PO 11/27/16 18:15 (Morphine Inj) 2 mg Q3H PRN IV 11/27/16 18:15 (Morphine Inj) 4 mg Q3H PRN IV 11/27/16 18:15 (Narcan Inj) 0.4 mg UNSCH PRN IV 11/27/16 18:15 (Liza-Colace) 1 tab BID PO 11/27/16 21:00 11/29/16 08:31 (Milk Of Magnesia Liq) 30 ml Q12H PRN PO 11/27/16 18:15 (Senokot) 17.2 mg Q12H PRN PO 11/27/16 18:15 (Dulcolax Supp) 10 mg DAILY PRN RECTAL 11/27/16 18:15 (Lactulose Liq) 30 ml DAILY PRN PO 11/27/16 18:15 (Norvasc) 5 mg DAILY PO 11/28/16 09:00 11/29/16 08:31 (Aspirin Chew) 81 mg HS CHEW 11/27/16 21:00 11/28/16 20:51 (Prinivil) 10 mg DAILY PO 11/28/16 09:00 11/29/16 08:31 (Synthroid) 75 mcg HS PO 11/27/16 21:00 11/28/16 20:51 (Desyrel) 50 mg HS PRN PO 11/27/16 18:15 11/28/16 22:05 (Protonix) 20 mg DAILY PO 11/28/16 09:00 11/29/16 08:30 (Miralax) 17 gm DAILY PO 11/28/16 09:00 A/P Problem List: (1) Fecal impaction ICD Code: K56.41 Status: Acute (2) Dehydration ICD Code: E86.0 Status: Acute (3) HTN (hypertension) ICD Code: I10 Status: Acute Assessment and Plan 66-year-old female with a PMH of Anxiety, Depression, HTN, Cerebral Palsy and h/ o CVA who presented to the ER w/ complaints of constipation x6 wks. Fecal Impaction: severe constipation x6 wks. CT Abd/Pelvis w/ large bolos of stool in rectum with air fluid levels in the colon, no small bowel dilatation a consideration for impaction, images reviewed by me. S/p Enema in ER. GI Consulted, appreciate recommendations. Given IVF. Start on daily Miralax. Suppository as needed. IV morphine prn pain. Patient with continued constipation /abdominal pain today, only minimal bowel movements overnight. Give Lactulose. Check abdominal xray. Patient wishes to stay overnight for colonoscopy tomorrow. 1640hrs: RN attempting manual disimpaction, moderate amount of extremely hard solid stool expelled however patient still with significant constipation and impaction. Will give fleet enema x1 now. Dehydration: GFR 63, BUN, Creatinine normal. S/p IVF. Repeat labs today show improvement, GFR 84. Monitor BMP. Continue IVF while NPO. Urinary Retention: suspect secondary to constipation as above. S/p Roa overnight. Will remove Roa and attempt void trial. HTN: BP 160's, resumed home Benazepril, Norvasc. Monitor BP, fairly controlled. DVT Prophylaxis: SCD/Teds. Heparin on hold for colonoscopy tomorrow. Discussed with Dr. Thibodeaux. Discharge Planning Keep overnight for colonoscopy tomorrow 11/30. Attending Statement Seen in her bedroom and discussed with TAMMY Tessie Simental, the patient even started having bowel movements will wait for Colonoscopy tomorrow Amanda Simental PA-C Nov 29, 2016 10:02 Yonathan Styles MD Nov 30, 2016 07:57
--- NOTE | 2016-11-29 11:39 | HHI.GIFU ---
Subjective Remarks Laying in bed feeling uncomfortable unable to have a bowel movement denies any pain nausea or vomiting Objective Vitals I&O Vital Signs Date Time Temp Pulse Resp B/P Pulse Ox O2 Delivery O2 Flow Rate FiO2 11/29/16 08:17 97.8 60 20 149/60 95 11/29/16 03:25 98.2 68 18 149/67 95 11/28/16 23:31 98.2 72 18 155/78 93 11/28/16 20:48 98 11/28/16 19:31 98.3 82 18 160/75 98 11/28/16 15:41 98.4 77 16 120/67 94 11/28/16 12:26 98.4 74 18 142/75 97 I/O 11/28/16 11/28/16 11/28/16 11/29/16 11/29/16 11/29/16 07:00 15:00 23:00 07:00 15:00 23:00 Intake Total 240 ml Output Total 1101 ml 800 ml 200 ml Balance -861 ml -800 ml -200 ml Intake Oral 240 ml Output Urine Total 1100 ml 800 ml 200 ml Stool Total 1 ml Bladder Scan Volume Amount 621 ml 999 ml # Voids 0 # Bowel Movements 7 2 Laboratory Laboratory Tests Test 11/27/16 11/28/16 16:05 07:23 White Blood Count 6.9 TH/MM3 7.2 TH/MM3 Red Blood Count 4.66 MIL/MM3 4.53 MIL/MM3 Hemoglobin 13.2 GM/DL 13.0 GM/DL Hematocrit 40.4 % 39.4 % Mean Corpuscular Volume 86.7 FL 87.0 FL Mean Corpuscular Hemoglobin 28.4 PG 28.6 PG Mean Corpuscular Hemoglobin 32.7 % 32.9 % Concent Red Cell Distribution Width 13.6 % 13.5 % Platelet Count 245 TH/MM3 212 TH/MM3 Mean Platelet Volume 7.9 FL 7.4 FL Neutrophils (%) (Auto) 82.3 % 81.1 % Lymphocytes (%) (Auto) 10.3 % 9.8 % Monocytes (%) (Auto) 6.1 % 7.7 % Eosinophils (%) (Auto) 0.7 % 1.1 % Basophils (%) (Auto) 0.6 % 0.3 % Neutrophils # (Auto) 5.7 TH/MM3 5.9 TH/MM3 Lymphocytes # (Auto) 0.7 TH/MM3 0.7 TH/MM3 Monocytes # (Auto) 0.4 TH/MM3 0.6 TH/MM3 Eosinophils # (Auto) 0.1 TH/MM3 0.1 TH/MM3 Basophils # (Auto) 0.0 TH/MM3 0.0 TH/MM3 CBC Comment DIFF FINAL DIFF FINAL Differential Comment Prothrombin Time 10.7 SEC Prothromb Time International 1.0 RATIO Ratio Activated Partial 26.5 SEC Thromboplast Time Sodium Level 143 MEQ/L 144 MEQ/L Potassium Level 3.8 MEQ/L 3.3 MEQ/L Chloride Level 108 MEQ/L 110 MEQ/L Carbon Dioxide Level 26.8 MEQ/L 22.1 MEQ/L Anion Gap 8 MEQ/L 12 MEQ/L Blood Urea Nitrogen 15 MG/DL 15 MG/DL Creatinine 0.90 MG/DL 0.70 MG/DL Estimat Glomerular Filtration 63 ML/MIN 84 ML/MIN Rate Random Glucose 104 MG/DL 99 MG/DL Calcium Level 9.1 MG/DL 8.7 MG/DL Total Bilirubin 0.5 MG/DL Aspartate Amino Transf 16 U/L (AST/SGOT) Alanine Aminotransferase 15 U/L (ALT/SGPT) Alkaline Phosphatase 79 U/L Total Protein 7.5 GM/DL Albumin 3.4 GM/DL Lipase 142 U/L Imaging Last Impressions Abdomen/Pelvis CT 11/27/16 1608 Signed Impressions: Service Date/Time: Sunday, November 27, 2016 16:58 - CONCLUSION: 1. Large bolus of stool in the rectum with air-fluid levels in the colon. 2. There is no small bowel dilatation. 3. Impaction would be a consideration. 4. Small kidneys, right smaller than left. 5. Granulomas in lung and spleen. Danielito Jimenez MD FACR Physical Exam NECK: Neck is supple. CHEST: Chest is clear to auscultation and percussion. CARDIAC: Regular rate and rhythm with no murmur gallop or rubs. ABDOMEN: Soft, nondistended, nontender; no hepatosplenomegaly; bowel sounds are present in all four quadrants. EXTREMITIES: No clubbing, cyanosis, or edema. SKIN: Normal; no rash; no jaundice. Assessment and Plan Plan - Constipation X 6 weeks- good results ( 8 BMs in chart) s/p enema X 1, lactulose, godfrey Colace, Dulcolax supp. and Senokot. Patient is poor historian, states she tried Dulcolax at home with out relief. She reports associated nausea. Denies vomiting, hematemesis, abd pain, hematochezia or melena. She denies having colonoscopy. CT Abd/Pelvis w/ large bolus of stool in the rectum with air fluid levels in the colon, no small bowel dilatation, consideration for impaction. - Urinary retention- s/p straight cath - Dehydration- elevated BUN, improving - HTN, Cerebral palsy per attending Plan: -We will plan for colonoscopy tomorrow -Will start GoLYTELY -Clear liquid diet - Supportive care Ti Robles MD Nov 29, 2016 11:39
[2016-11-29] MEDS ORDERED: PEG (High)/E-LYTE SOLN 4000 ML BTL PO ONE (11:45)
[2016-11-29 11:54] VITALS: BP 143/67; PULSE 86; RESP 18; TEMP 97.9; O2SAT 96
[2016-11-29 11:59] LABS: BICARBONATE 28.1 MEQ/L (21.0-32.0); POTASSIUM 3.6 MEQ/L (3.5-5.1)
--- NOTE | 2016-11-29 14:26 | RADRPT ---
EXAM DATE/TIME: 11/29/2016 14:09 [facility] COMPARISON: CT ABDOMEN & PELVIS W/O CONTRAST, November 27, 2016, 16:58. INDICATIONS : Abdomen pain, constipation MEDICAL HISTORY : cerebral palsy SURGICAL HISTORY : Left hip arthroplasty ENCOUNTER: Initial ACUITY: 3 days PAIN SCORE: 4/10 LOCATION: Abdomen FINDINGS: Mildly distended colon with a large amount of stool again seen in the rectum. No significant small enrike wel distention seen. No evidence of free air. CONCLUSION: No significant change. Large stool in the rectum and mildly distended upstream colon. Adam Roman MD on November 29, 2016 at 14:23 Board Certified Radiologist. This report was verified electronically.
[2016-11-29 16:13] VITALS: BP 142/80; PULSE 85; TEMP 96.9; O2SAT 96
[2016-11-29] MEDS ORDERED: SOD PHOSPHATE/SOD BIPHOSPHATE (ADULT) ENEMA 133ML RECTAL ONE (17:00)
[2016-11-29] MEDS: NS + KCL 20 MEQ INJ 1,000 ML IV SCH (18:28)
[2016-11-29 20:00] VITALS: BP 138/78; PULSE 66; RESP 18; TEMP 98.4; O2SAT 97
[2016-11-29] MEDS: LEVOTHYROXINE SODIUM 75 MCG TAB PO SCH (20:03)
[2016-11-29] MEDS: ASPIRIN 81 MG CHEW TAB CHEW SCH (20:04)
[2016-11-30 01:41] VITALS: BP 144/78; PULSE 88; RESP 16; TEMP 98.1; O2SAT 92
[2016-11-30] MEDS: NS + KCL 20 MEQ INJ 1,000 ML IV SCH (04:54)
[2016-11-30 04:55] LABS: HEMATOCRIT 37.7 % (35.0-46.0); MEAN CELL VOLUME 86.4 FL (80.0-100.0); MEAN CORPUSCULAR HEMOGLOBIN 28.4 PG (27.0-34.0); MEAN CORPUSCULAR HGB CONC 32.9 % (32.0-36.0); PLATELET COUNT 206 TH/MM3 (150-450); RED BLOOD COUNT 4.37 MIL/MM3 (4.00-5.30); RED CELL DISTRIBUTION WIDTH 13.4 % (11.6-17.2); REVIEW FLAG FINAL; WHITE BLOOD COUNT 5.6 TH/MM3 (4.0-11.0)
[2016-11-30 05:13] LABS: BICARBONATE 26.6 MEQ/L (21.0-32.0); POTASSIUM 3.8 MEQ/L (3.5-5.1)
[2016-11-30 08:03] VITALS: BP 145/72; PULSE 67; RESP 18; TEMP 97.9; O2SAT 94
[2016-11-30 08:52] VITALS: BP 145/72; PULSE 87; RESP 18; TEMP 97.9; O2SAT 94
[2016-11-30] MEDS ORDERED: PROPOFOL 200 MG/20 ML AMP IV PUSH ONE (09:25)
--- NOTE | 2016-11-30 10:12 | GIPROC ---
[facility] [address] [facility]. [facility], [id number] COLONOSCOPY PROCEDURE REPORT EXAM DATE: 11/30/2016 PATIENT NAME: Angus Myles MR #: [id number] BIRTHDATE: 1950 ENDOSCOPIST: Valentina Aleman MD ORDER #: [id number] TRAINING AND DEVELOPMENT HEAD: Gilles Mullins and Aisha eMlton STATUS: inpatient INDICATIONS: The patient is a 66 yr old female here for a colonoscopy due to abdominal pain and change in bowel habits PROCEDURE PERFORMED: Colonoscopy, diagnostic MEDICATIONS: None and Per Anesthesia. PREP QUALITY: The [place] Bowel Prep Score was Right colon 1, Mid colon 1, and Left colon 1. Total = 3. PREP TYPE:GoLytely ESTIMATED BLOOD LOSS: None CONSENT: The patient understands the risks and benefits of the procedure and understands that these risks include, but are not limited to: sedation, allergic reaction, infection, perforation and/or bleeding. Alternative means of evaluation and treatment include, among others: physical exam, x-rays, and/or surgical intervention. The patient elects to proceed with this endoscopic procedure. medical equipment was checked for proper function. Hand hygiene and appropriate measures for infection prevention was taken. After the risks, benefits and alternatives of the procedure were thoroughly explained, Informed consent was verified, confirmed and timeout was successfully executed by the treatment team. A digital exam revealed external hemorrhoids The New [id number] (Std Gastro), [id number], and Pentax [id number] endoscope was introduced through the anus and advanced to the cecum, which was identified by both the appendix and ileocecal valve. The instrument was then slowly withdrawn as the colon was fully examined. COLON FINDINGS: Moderate diverticulosis was noted in the sigmoid colon. Retroflexed views revealed internal hemorrhoids and Retroflexed views revealed medium internal hemorrhoids The scope was then completely withdrawn from the patient and the procedure terminated. PROCEDURE WITHDRAWAL TIME:6minutes ADVERSE EVENTS: There were no complications. IMPRESSIONS: 1. Moderate diverticulosis was noted in the sigmoid colon 2. Retroflexed views revealed internal hemorrhoids 3. Retroflexed views revealed medium internal hemorrhoids 4. Revealed external hemorrhoids RECOMMENDATIONS: 1. Benefiber 2 tsp daily 2. Continue surveillance 3. Yearly hemoccult 4. High fiber diet 5. No seeds, nuts and popcorn in diet 6. Follow-up: GI Clinic 1 week(s) 7. Aggressive bowel regimen, gi will follow prn. RECALL: Return 1 month Colonoscopy Valentina Aleman MD eSigned: Valentina Aleman MD 11/30/2016 10:11 AM cc: PATIENT NAME: Angus Myles MR#: [id number]
[2016-11-30] MEDS ORDERED: SENN1TAB PO (10:24)
[2016-11-30] MEDS ORDERED: POLY17S PO (10:24)
--- NOTE | 2016-11-30 10:33 | HHI.DS ---
Discharge Summary Admission Date Nov 27, 2016 at 18:10 Discharge Date: Nov 30, 2016 Admitting Diagnosis fecal impaction (1) Fecal impaction ICD Code: K56.41 Diagnosis: Principal (2) Dehydration ICD Code: E86.0 Diagnosis: Secondary (3) HTN (hypertension) ICD Code: I10 Diagnosis: Secondary Procedures Colonoscopy 11/30/16 Brief History - From Admission This is a 66-year-old female with a PMH of Anxiety, Depression, HTN, Cerebral Palsy and h/o CVA who presented to the ER w/ complaints of constipation x6 wks. States she's tried multiple over the counter medications w/ no relief. Reports associated abdominal pain and nausea, but no vomiting or diarrhea. On arrival, BP 168/79, HR 81, O2 sat 99% on RA, Afebrile. CBC unremarkable except for elevated neutrophil count. Chemistry unremarkable except for GFR 63. BUN/ Creatinine normal. INR 1.0. CT Abd/Pelvis w/ large bolus of stool in the rectum with air fluid levels in the colon, no small bowel dilatation, consideration for impaction. S/p enema in ER w/ minimal improvement. GI Consult called in by ER doc. CBC/BMP: 11/30/16 0426 11/30/16 0426 Significant Findings Laboratory Tests Test 11/27/16 11/28/16 11/29/16 16:05 07:23 10:46 Neutrophils (%) (Auto) 82.3 % 81.1 % (16.0-70.0) (16.0-70.0) Lymphocytes # (Auto) 0.7 TH/MM3 0.7 TH/MM3 (1.0-4.8) (1.0-4.8) Chloride Level 108 MEQ/L 110 MEQ/L (98-107) (98-107) Estimat Glomerular Filtration 63 ML/MIN (>89) 84 ML/MIN (>89) 71 ML/MIN (>89) Rate Potassium Level 3.3 MEQ/L (3.5-5.1) Random Glucose 107 MG/DL (74-106) Phosphorus Level 2.1 MG/DL (2.5-4.9) Imaging Last Impressions Abdomen X-Ray 11/29/16 0000 Signed Impressions: Service Date/Time: Tuesday, November 29, 2016 14:09 - CONCLUSION: No significant change. Large stool in the rectum and mildly distended upstream colon. Adam Roman MD Abdomen/Pelvis CT 11/27/16 1608 Signed Impressions: Service Date/Time: Sunday, November 27, 2016 16:58 - CONCLUSION: 1. Large bolus of stool in the rectum with air-fluid levels in the colon. 2. There is no small bowel dilatation. 3. Impaction would be a consideration. 4. Small kidneys, right smaller than left. 5. Granulomas in lung and spleen. Danielito Jimenez MD FACR PE at Discharge GENERAL: Well-nourished, well-developed middle aged female patient in [facility]. SKIN: Warm and dry. No rash. HEENT: Normocephalic. Atraumatic. Pupils equal and round. Mucous membranes pink and moist. NECK: Supple. Trachea midline. CARDIOVASCULAR: Regular rate and rhythm. S1, S2 noted. No murmur appreciated. RESPIRATORY: No accessory muscle use. Clear to auscultation. Breath sounds equal bilaterally. GASTROINTESTINAL: Abdomen soft, nondistended, nontender. Normoactive bowel sounds x4. MUSCULOSKELETAL: No obvious deformities. Extremities without clubbing, cyanosis , or edema. NEUROLOGICAL: Awake and alert. No obvious cranial nerve deficits. Motor grossly within normal limits. Normal speech. Pt update on day of discharge The patient is seen after colonoscopy today. She reports her abdominal pain is improved. She states that she had a large BM yesterday and afterwards began spontaneously voiding. She lives at home with her daughter. She would like to go home today. Hospital Course 66-year-old female with a PMH of Anxiety, Depression, HTN, Cerebral Palsy and h/ o CVA who presented to the ER w/ complaints of constipation x6 wks. Fecal Impaction: severe constipation x6 wks. CT Abd/Pelvis w/ large bolos of stool in rectum with air fluid levels in the colon, no small bowel dilatation a consideration for impaction. The patient received enemas, manual disimpaction, and bowel regimen with MiraLAX and Liza-Colace. GI was consulted and performed colonoscopy. Colonoscopy showed moderate diverticulosis, internal hemorrhoids, external hemorrhoids. GI recommended an aggressive bowel regimen, outpatient follow-up in one week, and repeat colonoscopy in one month. Dehydration: Improved with IVF. Urinary Retention: suspect secondary to constipation as above. Roa was placed and removed. Constipation improved and patient began voiding spontaneously. HTN: BP better controlled after abdominal pain from fecal impaction improved. Continue home Benazepril, Norvasc. Pt Condition on Discharge: Stable Discharge Disposition: Discharge Home Discharge Time: > 30 minutes Discharge Instructions DIET: Follow Instructions for: Heart Healthy Diet Activities you can perform: Regular-No Restrictions Follow up Referrals: Gastroenterology - 10 Days @ [facility] PCP Follow-up - 1 Week with Terence Askew DO New Medications: Polyethylene Glycol 3350 Powder (Polyethylene Glycol 3350 Powder) 17 Gm Pow 17 GM PO DAILY Constipation #1 BOTTLE Sennosides-Docusate Sodium (Senna Plus 8.6-50 mg) 1 Tab Tab 2 TAB PO BID Constipation #60 TAB Continued Medications: Amlodipine (Amlodipine) 5 Mg Tab 5 MG PO DAILY Blood Pressure Management #30 Ref 0 TAB Aspirin (Aspirin Children's) 81 Mg Chew 81 MG CHEW HS Ref 0 TAB Benazepril (Benazepril) 10 Mg Tab 10 MG PO DAILY Blood Pressure Management #30 Ref 0 TAB Gabapentin (Gabapentin) 400 Mg Cap 400 CAP PO HS NEUROPATHY #30 Ref 0 CAP Levothyroxine (Levothyroxine) 75 Mcg Tab 75 MCG PO HS Thyroid #30 Ref 0 TAB Omeprazole (Omeprazole) 20 Mg Cap 20 MG PO DAILY Trazodone (Trazodone) 50 Mg Tab 50 MG PO HS PRN INSOMNIA #30 Ref 0 TAB Discontinued Medications: Ibuprofen (Ibuprofen) 400 Mg Tab 400 MG PO Q8H PRN pain #30 Ref 0 TAB Jeffrey Coates Nov 30, 2016 10:33 Yonathan Styles MD Nov 30, 2016 16:49
[2016-11-30] MEDS: PANTOPRAZOLE SOD 20 MG DELAYED RELEASE TAB PO SCH (10:51)
[2016-11-30] MEDS: DOCUSATE SODIUM 50 MG/SENNA 8.6 MG TAB PO SCH (10:51)
[2016-11-30] MEDS: amLODIPine BESYLATE 5 MG TAB PO SCH (10:51)
[2016-11-30] MEDS: SODIUM CHLORIDE 0.9% FLUSH 10 ML FLUSH IV FLUSH SCH (10:52)
[2016-11-30] MEDS: POLYETHYLENE GLYCOL 17 GM PKG PO SCH (10:52)
[2016-11-30] MEDS: LISINOPRIL 10 MG TAB PO SCH (10:52)
[2016-11-30 11:12] VITALS: BP 187/93; PULSE 63; RESP 18; TEMP 98; O2SAT 98
== END 2016-11-30 18:32 | disposition home or self-care (01) ==
LOC: NEPC 15:18 → NEDA 18:10 → NEPGCP 20:34
PROVIDERS: ADMIT Internal Medicine; ATTEND Internal Medicine
DX: K56.41 Fecal impaction (principal); E86.0 Dehydration; R33.9 Retention of urine, unspecified; R11.0 Nausea; J84.10 Pulmonary fibrosis, unspecified; R10.30 Lower abdominal pain, unspecified; K57.90 Diverticulosis of intestine, part unspecified, without perforation or abscess without bleeding; K64.4 Residual hemorrhoidal skin tags; I10 Essential (primary) hypertension; F41.9 Anxiety disorder, unspecified; F32.9 Major depressive disorder, single episode, unspecified; G80.9 Cerebral palsy, unspecified; E07.9 Disorder of thyroid, unspecified; H91.91 Unspecified hearing loss, right ear; Z86.73 Personal history of transient ischemic attack (TIA), and cerebral infarction without residual deficits; Z79.899 Other long term (current) drug therapy; Z79.82 Long term (current) use of aspirin
CPT/HCPCS: 00810; 45378; 74000; 74176; 80048; 80053; 82948; 83690; 84100; 85025; 85027; 85610; 85730; 96365; 96366; 96372; 96375; 96376; 99285; G0378; J1644; J2270; J3480; J7030

== ENCOUNTER 2017-03-02 11:47 | Emergency (ER) | payer MEDICARE, MEDICAID ==
[~2017-03-02] VITALS: Ht 170.2 cm; Wt 80.0 kg
[~2017-03-02 11:47] MED LIST changes: -CHLO500T13 PO; -IBUP400T20 PO; -MACR100C2 PO; +POLY17S PO; +SENN1TAB PO
[2017-03-02 11:58] VITALS: BP 150/88; PULSE 68; RESP 16; TEMP 98.7; O2SAT 100
[2017-03-02] MEDS ORDERED: SODIUM CHLOR 0.9% 1000 ML INJ 1,000 ML IV SCH (14:53)
--- NOTE | 2017-03-02 14:59 | PD ---
HPI Chief Complaint: Abdominal Pain Time Seen by Provider: 14:40 Travel History International Travel<30 days: No Contact w/Intl Traveler<30days: No Traveled to known affect area: No History of Present Illness HPI 57-year-old female presents to the emergency department for evaluation of right lower quadrant abdominal pain that started yesterday. Patient states that she called 911 by accident, the paramedics came and she decided to come to the emergency department. She states she has never had pain like this before. She does report history of bladder reconstruction surgery when she was 12 years old. She denies any fevers or chills. No chest pain or shortness breath. No nausea, vomiting. She reports chronic diarrhea from IBS, but no new diarrhea. No blood in stool. Patient has past medical history of anxiety, depression, hypertension, cerebral palsy, CVA. PFSH Past Medical History Arthritis: No Asthma: No Autoimmune Disease: No Blood Disorders: No Anxiety: Yes Depression: Yes Heart Rhythm Problems: No Cancer: No Cardiac Catheterization: No Cardiovascular Problems: Yes (HTN) High Cholesterol: No Chemotherapy: No Chest Pain: No Congestive Heart Failure: No COPD: No Cerebrovascular Accident: Yes Diabetes: Yes Diminished Hearing: Yes (DEAF RIGHT EAR) Endocrine: Yes GERD: No Glaucoma: No Genitourinary: No Headaches: No Hypertension: Yes Immune Disorder: No Implanted Vascular Access Dvce: Yes Kidney Stones: No Musculoskeletal: Yes (CERBRAL PALSY) Neurologic: No Psychiatric: Yes Reproductive: No Respiratory: No Migraines: No Myocardial Infarction: No Radiation Therapy: No Renal Failure: No Seizures: No Sickle Cell Disease: No Sleep Apnea: No Thyroid Disease: Yes Ulcer: No Menopausal: Yes : 2 Para: 2 Miscarriage: 0 : 0 Past Surgical History Abdominal Surgery: No AICD: No Appendectomy: No Arteriovenous Shunt: No Cardiac Surgery: No Cholecystectomy: No Coronary Artery Bypass Graft: No Ear Surgery: No Endocrine Surgery: No Eye Surgery: No Genitourinary Surgery: Yes (BLADDER RECONSTRUCTION IN 1961) Gynecologic Surgery: No Insulin Pump: No Joint Replacement: Yes (L HIP AND L KNEE) Neurologic Surgery: No Oral Surgery: No Pacemaker: No Thoracic Surgery: No Tonsillectomy: Yes (ADENOIDECTOMY) Other Surgery: Yes Social History Alcohol Use: No Tobacco Use: No Substance Use: Yes (in past (meth)) Allergies-Medications (Allergen,Severity, Reaction): Coded Allergies: Sulfa (Sulfonamide Antibiotics) (Unverified Allergy, Severe, 03/02/17) penicillin G (Unverified Allergy, Severe, PCN CAUSES HIVES PER H&P, 06/06) Reported Meds & Prescriptions Reported Meds & Active Scripts Active Senna Plus 8.6-50 mg (Sennosides-Docusate Sodium) 1 Tab Tab 2 Tab PO BID Polyethylene Glycol 3350 Powder (Polyethylene Glycol) 17 Gm Pow 17 Gm PO DAILY Reported Levothyroxine (Levothyroxine Sodium) 75 Mcg Tab 75 Mcg PO HS Gabapentin 400 Mg Cap 400 Cap PO HS Trazodone (Trazodone HCl) 50 Mg Tab 50 Mg PO HS PRN Benazepril (Benazepril HCl) 10 Mg Tab 10 Mg PO DAILY Omeprazole 20 Mg Cap 20 Mg PO DAILY Aspirin Children's (Aspirin) 81 Mg Chew 81 Mg CHEW HS Amlodipine (Amlodipine Besylate) 5 Mg Tab 5 Mg PO DAILY Review of Systems Except as stated in HPI: all other systems reviewed are Neg Physical Exam Narrative GENERAL: Well-nourished, well-developed female patient, afebrile SKIN: Focused skin assessment warm/dry. HEAD: Normocephalic. Atraumatic. EYES: No scleral icterus. No injection or drainage. NECK: Supple, trachea midline. No JVD or lymphadenopathy. CARDIOVASCULAR: Regular rate and rhythm without murmurs, gallops, or rubs. RESPIRATORY: Breath sounds equal bilaterally. No accessory muscle use. Lungs sounds are clear to auscultation. GASTROINTESTINAL: Abdomen soft and nondistended. Patient has right lower quadrant tenderness to palpation. MUSCULOSKELETAL: No cyanosis, or edema. BACK: Nontender without obvious deformity. No CVA tenderness. Data Data Last Documented VS Vital Signs Date Time Temp Pulse Resp B/P (MAP) Pulse Ox O2 Delivery O2 Flow Rate FiO2 03/02/17 19:15 60 18 191/97 (128) 99 Room Air 03/02/17 11:58 98.7 Orders Orders Complete Blood Count With Diff (03/02/17 14:53) Comprehensive Metabolic Panel (03/02/17 14:53) Lipase (03/02/17 14:53) Prothrombin Time / Inr (Pt) (03/02/17 14:53) Act Partial Throm Time (Ptt) (03/02/17 14:53) Urinalysis - C+S If Indicated (03/02/17 14:53) Ct Abd/Pel W Iv Contrast(Rout) (03/02/17 14:53) Iv Access Insert/Monitor (03/02/17 14:53) Ecg Monitoring (03/02/17 14:53) Oximetry (03/02/17 14:53) Morphine Inj (Morphine Inj) (03/02/17 15:00) Ondansetron Inj (Zofran Inj) (03/02/17 15:00) Sodium Chlor 0.9% 1000 Ml Inj (Ns 1000 M (03/02/17 14:53) Sodium Chloride 0.9% Flush (Ns Flush) (03/02/17 15:00) Iohexol 350 Inj (Omnipaque 350 Inj) (03/02/17 19:43) Labs Laboratory Tests Test 03/02/17 15:10 03/02/17 15:55 White Blood Count 5.8 TH/MM3 Red Blood Count 4.63 MIL/MM3 Hemoglobin 13.4 GM/DL Hematocrit 40.7 % Mean Corpuscular Volume 87.8 FL Mean Corpuscular Hemoglobin 29.0 PG Mean Corpuscular Hemoglobin Concent 33.0 % Red Cell Distribution Width 14.1 % Platelet Count 227 TH/MM3 Mean Platelet Volume 7.1 FL Neutrophils (%) (Auto) 68.2 % Lymphocytes (%) (Auto) 21.1 % Monocytes (%) (Auto) 7.5 % Eosinophils (%) (Auto) 2.8 % Basophils (%) (Auto) 0.4 % Neutrophils # (Auto) 4.0 TH/MM3 Lymphocytes # (Auto) 1.2 TH/MM3 Monocytes # (Auto) 0.4 TH/MM3 Eosinophils # (Auto) 0.2 TH/MM3 Basophils # (Auto) 0.0 TH/MM3 CBC Comment DIFF FINAL Differential Comment Prothrombin Time 10.7 SEC Prothromb Time International Ratio 1.0 RATIO Activated Partial Thromboplast Time 29.0 SEC Blood Urea Nitrogen 14 MG/DL Creatinine 0.82 MG/DL Random Glucose 87 MG/DL Total Protein 7.7 GM/DL Albumin 3.4 GM/DL Calcium Level 9.0 MG/DL Alkaline Phosphatase 90 U/L Aspartate Amino Transf (AST/SGOT) 14 U/L Alanine Aminotransferase (ALT/SGPT) 13 U/L Total Bilirubin 0.4 MG/DL Sodium Level 145 MEQ/L Potassium Level 3.6 MEQ/L Chloride Level 110 MEQ/L Carbon Dioxide Level 29.5 MEQ/L Anion Gap 6 MEQ/L Estimat Glomerular Filtration Rate 70 ML/MIN Lipase 178 U/L Urine Color LIGHT-YELLOW Urine Turbidity CLEAR Urine pH 7.0 Urine Specific [place] 1.010 Urine Protein NEG mg/dL Urine Glucose (UA) NEG mg/dL Urine Ketones NEG mg/dL Urine Occult Blood NEG Urine Nitrite NEG Urine Bilirubin NEG Urine Urobilinogen LESS THAN 2.0 MG/DL Urine Leukocyte Esterase TRACE Urine RBC 2 /hpf Urine WBC 6 /hpf Urine Squamous Epithelial Cells 4 /hpf Urine Amorphous Sediment RARE Urine Mucus FEW /lpf Urine Yeast (Budding) FEW Microscopic Urinalysis Comment CULT NOT INDICATED MDM Medical Decision Making Medical Screen Exam Complete: Yes Emergency Medical Condition: Yes Medical Record Reviewed: Yes Interpretation(s) Last Impressions Abdomen/Pelvis CT 03/02/17 1453 Signed Impressions: Service Date/Time: Thursday, March 02, 2017 19:34 - CONCLUSION: 1. Distended urinary bladder and mild hydronephrosis/hydroureter. 2. Chronic small , lobulated kidneys. 3. No obstruction or inflammatory changes of the GI tract. Moderate stool in the colon, mostly right side and rectum. 4. Cholelithiasis without evidence of cholecystitis or biliary obstruction. Adam Roman MD Differential Diagnosis Appendicitis versus UTI versus dehydration pancreatitis versus bowel instruction versus diverticulitis versus pyelonephritis Narrative Course 67-year-old female presents to the emergency department for evaluation of right lower quadrant abdominal pain that has been ongoing for the past week, but worsened yesterday. CBC, CMP, lipase, UA, PTT, PT/INR ordered and pending. Patient is given normal saline 1 L IV bolus, Zofran 4 mg IV, morphine 4 mg IV for pain. CT abdomen/pelvis with IV contrast is ordered and pending. CBC is unremarkable. CMP shows no acute abnormality. Lipase is 178. Coags are unremarkable. UA shows trace leukocyte esterase. Ct abdomen/pelvis shows Distended urinary bladder and mild hydronephrosis/hydroureter; 2. Chronic small , lobulated kidneys; 3. No obstruction or inflammatory changes of the GI tract. Moderate stool in the colon, mostly right side and rectum; 4. Cholelithiasis without evidence of cholecystitis or biliary obstruction. When I went in to re-evaluate the patient after CT, the patient had urinated all over her bed. Her RN stated that she soaked her bed with urine after CT. She states she had been holding it. I believe this is the reason for distended bladder on CT. Patient is stable for discharge home to follow up with her primary care provider. She verbalizes understanding and agreement. Patient is stable for discharge home. She is instructed to follow primary care from physician. I discussed the findings attending physician who agrees with plan and disposition. Diagnosis Primary Impression: Abdominal pain Qualified Codes: R10.31 - Right lower quadrant pain Referrals: Primary Care Physician call for appointment Patient Instructions: Abdominal Pain (ED), General Instructions Additional Instructions: Follow-up with your primary care physician. Return to the emergency department for any acute worsening of symptoms. Med/Other Pt SpecificInfo: No Change to Meds Disposition: 01 DISCHARGE HOME Condition: Stable Poly Conklin Mar 02, 2017 14:59
[2017-03-02] MEDS ORDERED: MORPHINE SULFATE 4 MG/ML INJ IV PUSH ONE (15:00)
[2017-03-02] MEDS ORDERED: ONDANSETRON HCL 4 MG/2 ML VIAL IVP ONE (15:00)
[2017-03-02] MEDS ORDERED: SODIUM CHLORIDE 0.9% FLUSH 10 ML FLUSH IV FLUSH PRN (15:00)
[2017-03-02 15:45] LABS: BASOPHIL % 0.4 % (0.0-2.0); EOSINOPHIL # 0.2 TH/MM3 (0-0.4); EOSINOPHIL % 2.8 % (0.0-4.0); HEMATOCRIT 40.7 % (35.0-46.0); HEMO FLAGS DIFF FINAL; LYMPH % 21.1 % (9.0-44.0); LYMPHOCYTE # 1.2 TH/MM3 (1.0-4.8); MEAN CELL VOLUME 87.8 FL (80.0-100.0); MONO % 7.5 % (0.0-8.0); NEUT % 68.2 % (16.0-70.0); PLATELET COUNT 227 TH/MM3 (150-450); RED BLOOD COUNT 4.63 MIL/MM3 (4.00-5.30); RED CELL DISTRIBUTION WIDTH 14.1 % (11.6-17.2); WHITE BLOOD COUNT 5.8 TH/MM3 (4.0-11.0)
[2017-03-02 15:49] LABS: PROTHROMBIN TIME - PATIENT 10.7 SEC (9.8-11.6)
[2017-03-02 15:56] LABS: ALT (GPT) 13 U/L (10-53); ANION GAP 6 MEQ/L (5-15); AST (GOT) 14 U/L (15-37); BICARBONATE 29.5 MEQ/L (21.0-32.0); BLOOD UREA NITROGEN 14 MG/DL (7-18); CHLORIDE 110 MEQ/L (98-107); GLOMERULAR FILTRATION RATE 70 ML/MIN (>89); POTASSIUM 3.6 MEQ/L (3.5-5.1); SODIUM (NA) 145 MEQ/L (136-145)
[2017-03-02 15:58] LABS: ALKALINE PHOSPHATASE 90 U/L (45-117); TOTAL BILIRUBIN ADULT 0.4 MG/DL (0.2-1.0)
[2017-03-02 16:10] VITALS: BP 185/77; PULSE 64; RESP 18; O2SAT 99
[2017-03-02 17:40] LABS: BLOOD, URINE NEG (NEG); COMMENT (UR) CULT NOT INDICATED; CULTURE IF INDICATED CULT NOT INDICATED; GLUCOSE,URINE NEG (NEG); KETONE, URINE NEG (NEG); MUCUS URINE FEW /lpf (OCC); NITRITE,URINE NEG (NEG); SQUAMOUS EPITHELIAL CELL URINE 4 /hpf (0-5); URINE COLOR LIGHT-YELLOW (YELLW/STRAW)
[2017-03-02 19:15] VITALS: BP 191/97; PULSE 60; RESP 18; O2SAT 99
[2017-03-02] MEDS ORDERED: IOHEXOL 350 MG/ML 10 ML VIAL (for RAD DIAG) IVCONTRAST ONE (19:43)
--- NOTE | 2017-03-02 20:00 | RADRPT ---
EXAM DATE/TIME: 03/02/2017 19:34 [facility] COMPARISON: CT ABDOMEN & PELVIS W/O CONTRAST, November 27, 2016, 16:58. INDICATIONS : Diarrhea for three weeks with right lower abdomen pain. IV CONTRAST: 92 cc Omnipaque 350 (iohexol) IV ORAL CONTRAST: No oral contrast ingested. RADIATION DOSE: 13.90 CTDIvol (mGy) MEDICAL HISTORY : Hypertension. Cerebral palsy SURGICAL HISTORY : Bladder reconstruction. Left hip replacement ENCOUNTER: Initial ACUITY: 3 weeks PAIN SCALE: 8/10 LOCATION: Right Abdomen TECHNIQUE: Volumetric scanning of the abdomen and pelvis was performed. Using automated exposure control and ad justment of the mA and/or kV according to patient size, radiation dose was kept as low as reasonably achievable to obtain optimal diagnostic quality images. DICOM format image data is available electro nically for review and comparison. FINDINGS: Lung base, liver and spleen granulomas again noted. Small lobulated kidneys seen. There is bilateral mild hydronephrosis and hydroureter. No stone or other obstructing lesion seen but the urinary bladde r is considerably distended at the time of imaging, etiology uncertain. No obstruction or inflammatory changes are seen of the gastrointestinal tract. There is moderate stoo l in the rectum, considerably less than seen on the prior CT. Also moderate stool in the cecum and as cending colon, more so than before. Numerous small stones are seen dependently within the gallbladder. No duct stone or ductal dilatation . CONCLUSION: 1. Distended urinary bladder and mild hydronephrosis/hydroureter. 2. Chronic small, lobulated kidneys. 3. No obstruction or inflammatory changes of the GI tract. Moderate stool in the colon, mostly right side and rectum. 4. Cholelithiasis without evidence of cholecystitis or biliary obstruction. Adam Roman MD on March 02, 2017 at 19:55 Board Certified Radiologist. This report was verified electronically.
[2017-03-02 20:15] VITALS: BP 177/97; PULSE 63; RESP 18; O2SAT 99
== END 2017-03-02 20:45 | disposition home or self-care (01) ==
LOC: NEPE 11:47
DX: R10.31 Right lower quadrant pain (principal); K80.20 Calculus of gallbladder without cholecystitis without obstruction; N13.30 Unspecified hydronephrosis; I10 Essential (primary) hypertension; E11.9 Type 2 diabetes mellitus without complications; G80.9 Cerebral palsy, unspecified; F41.9 Anxiety disorder, unspecified; F32.9 Major depressive disorder, single episode, unspecified; Z86.73 Personal history of transient ischemic attack (TIA), and cerebral infarction without residual deficits
CPT/HCPCS: 74177; 80053; 81001; 83690; 85025; 85610; 85730; 96374; 96375; 99285; J2270; J2405; J7030; Q9967

== ENCOUNTER 2017-07-06 09:48 | Observation (INO) | payer MEDICARE, MEDICAID ==
[~2017-07-06] VITALS: Ht 172.7 cm; Wt 73.0 kg
[2017-07-06] MEDS ORDERED: NYSTATIN 100,000 U/GM OINT 15 GM TUBE TOPICAL ONE (10:30)
--- NOTE | 2017-07-06 10:43 | HHI.FF ---
Face to Face Verification Diagnosis: (1) Rash Physical Therapy Order: Evaluate and Treat, Improve ambulation, Strength and gait training Occupational Therapy Order: Evaluate and Treat, Improve ADL, Gross motor coordination, Fine motor coordination Home Health Nursing Order: Medication education-adverse effect Wound care and dressing changes Nursing assessment with vital signs Home Health Aide Order: To Assist In: Bathing and personal care, paid search specialist and meal prep Resin Painter Order: To Evaluate: Living conditions/environment, Support services Order: To Provide: Long range planning, Community services I have seen patient Angus Myles on 07/06/17. My clinical findings support the need for the requested home health care services because: Ltd mobility - disease progression Limited ability to care for self High risk of falls I certify that my clinical findings support that this patient is homebound because: Unsteady gait/balance Unsafe to leave home unassisted Need for psychosocial assistance Ulp-[id number] bed/chair Unable to use public transportation Sherri Bailey MD Jul 06, 2017 10:43
[2017-07-06 11:01] VITALS: BP 109/64; PULSE 71; RESP 17; TEMP 97.8; O2SAT 97
[2017-07-06 11:06] VITALS: BP 109/64; PULSE 71; RESP 17; TEMP 97.8; O2SAT 97
[2017-07-06 12:08] LABS: BASOPHIL # 0.1 TH/MM3 (0-0.2); BASOPHIL % 0.7 % (0.0-2.0); EOSINOPHIL # 0.1 TH/MM3 (0-0.4); EOSINOPHIL % 1.4 % (0.0-4.0); HEMATOCRIT 37.6 % (35.0-46.0); HEMOGLOBIN 12.3 GM/DL (11.6-15.3); LYMPH % 8.9 % (9.0-44.0); LYMPHOCYTE # 0.9 TH/MM3 (1.0-4.8); MEAN CELL VOLUME 91.1 FL (80.0-100.0); MEAN CORPUSCULAR HEMOGLOBIN 29.7 PG (27.0-34.0); MEAN CORPUSCULAR HGB CONC 32.6 % (32.0-36.0); MEAN PLATELET VOLUME 6.8 FL (7.0-11.0); MONO % 11.4 % (0.0-8.0); MONOCYTE # 1.2 TH/MM3 (0-0.9); NEUT % 77.6 % (16.0-70.0); PLATELET COUNT 305 TH/MM3 (150-450); RED BLOOD COUNT 4.13 MIL/MM3 (4.00-5.30); WHITE BLOOD COUNT 10.3 TH/MM3 (4.0-11.0)
[2017-07-06 12:36] LABS: ALBUMIN 2.7 GM/DL (3.4-5.0); AST (GOT) 29 U/L (15-37); BLOOD UREA NITROGEN 17 MG/DL (7-18); CALCIUM 9.1 MG/DL (8.5-10.1); CHLORIDE 106 MEQ/L (98-107); CREATININE 0.84 MG/DL (0.50-1.00); GLOMERULAR FILTRATION RATE 68 ML/MIN (>89); GLUCOSE,RANDOM 77 MG/DL (74-106); SODIUM (NA) 140 MEQ/L (136-145)
[2017-07-06 12:37] LABS: ALT (GPT) 14 U/L (10-53)
[2017-07-06 12:39] LABS: ALKALINE PHOSPHATASE 89 U/L (45-117); TOTAL PROTEIN 7.3 GM/DL (6.4-8.2)
--- NOTE | 2017-07-06 13:13 | PD ---
HPI Chief Complaint: Medical Clearance Time Seen by Provider: 10:08 Travel History International Travel<30 days: No Contact w/Intl Traveler<30days: No Traveled to known affect area: No History of Present Illness HPI This is a 67-year-old female who has a history of cerebral palsy and limited mobility who presents to the emergency department with a painful rash that has been going on for 5 days, constant, severe, making it difficult for her to stand and walk. She spends a lot of her time in a wheelchair normally. She says that she only changes her depends once a day because she cannot afford to change it anymore. She was seen at [facility] over the weekend where she was told she has a urinary tract infection but she does not think she got an antibiotic prescription for it. She has been having more difficulty caring for herself at home. She lives with her daughter but her daughter works all day. PFSH Past Medical History Arthritis: No Asthma: No Autoimmune Disease: No Blood Disorders: No Anxiety: Yes Depression: Yes Heart Rhythm Problems: No Cancer: No Cardiac Catheterization: No Cardiovascular Problems: Yes Cerebral Palsy: Yes High Cholesterol: No Chemotherapy: No Chest Pain: No Congestive Heart Failure: No COPD: No Cerebrovascular Accident: Yes Diabetes: No Diminished Hearing: Yes (DEAF RIGHT EAR) Endocrine: Yes Gastrointestinal Disorders: Yes (IMPACTION) GERD: No Glaucoma: No Genitourinary: No Headaches: No Hypertension: Yes Immune Disorder: No Implanted Vascular Access Dvce: Yes Kidney Stones: No Musculoskeletal: Yes (CERBRAL PALSY) Neurologic: No Psychiatric: Yes Reproductive: No Respiratory: No Migraines: No Myocardial Infarction: No Radiation Therapy: No Renal Failure: No Seizures: No Sickle Cell Disease: No Sleep Apnea: No Thyroid Disease: Yes Ulcer: No Tetanus Vaccination: < 5 Years Influenza Vaccination: Yes ?: Not Menopausal: Yes : 2 Para: 2 Miscarriage: 0 : 0 Past Surgical History Abdominal Surgery: No AICD: No Appendectomy: No Arteriovenous Shunt: No Cardiac Surgery: No Cholecystectomy: No Coronary Artery Bypass Graft: No Ear Surgery: No Endocrine Surgery: No Eye Surgery: No Genitourinary Surgery: Yes (BLADDER RECONSTRUCTION IN 1961) Gynecologic Surgery: No Insulin Pump: No Joint Replacement: Yes (L HIP AND L KNEE) Neurologic Surgery: No Oral Surgery: No Pacemaker: No Thoracic Surgery: No Tonsillectomy: Yes (ADENOIDECTOMY) Other Surgery: Yes (196 BLADDER, LLE FX) Family History Family Myocardial Infarction: Yes Social History Alcohol Use: No Tobacco Use: No Substance Use: Yes (in past (meth)) Allergies-Medications (Allergen,Severity, Reaction): Coded Allergies: Sulfa (Sulfonamide Antibiotics) (Unverified Allergy, Severe, 07/06/17) penicillin G (Unverified Allergy, Severe, PCN CAUSES HIVES PER H&P, ) Reported Meds & Prescriptions Reported Meds & Active Scripts Active Senna Plus 8.6-50 mg (Sennosides-Docusate Sodium) 1 Tab Tab 2 Tab PO BID Polyethylene Glycol 3350 Powder (Polyethylene Glycol) 17 Gm Pow 17 Gm PO DAILY Reported Levothyroxine (Levothyroxine Sodium) 75 Mcg Tab 75 Mcg PO HS Gabapentin 400 Mg Cap 400 Cap PO HS Trazodone (Trazodone HCl) 50 Mg Tab 50 Mg PO HS PRN Benazepril (Benazepril HCl) 10 Mg Tab 10 Mg PO DAILY Omeprazole 20 Mg Cap 20 Mg PO DAILY Aspirin Children's (Aspirin) 81 Mg Chew 81 Mg CHEW HS Amlodipine (Amlodipine Besylate) 5 Mg Tab 5 Mg PO DAILY Review of Systems Except as stated in HPI: all other systems reviewed are Neg Physical Exam Narrative GENERAL: Frail female, disheveled SKIN: Erythematous moist rash with skin breakdown extending from the lower abdomen over the labia proximal to the rectum with grayish discharge in the right groin HEAD: Atraumatic. Normocephalic. EYES: Pupils equal and round. No injection or drainage. ENT: Moist mucous membranes NECK: Trachea midline. CARDIOVASCULAR: Regular rate and rhythm. No murmur appreciated. RESPIRATORY: Clear to auscultation. Breath sounds equal bilaterally. GASTROINTESTINAL: Abdomen soft, non-tender, nondistended. MUSCULOSKELETAL: No obvious deformities. NEUROLOGICAL: Awake and alert. No obvious cranial nerve deficits. PSYCHIATRIC: Appropriate mood and affect; insight and judgment normal. Data Data Last Documented VS Vital Signs Date Time Temp Pulse Resp B/P (MAP) Pulse Ox O2 Delivery O2 Flow Rate FiO2 07/06/17 11:06 97.8 71 17 109/64 (79) 97 Room Air Orders Orders Nystatin Oint (Mycostatin Oint) (07/06/17 10:30) Complete Blood Count With Diff (07/06/17 11:37) Comprehensive Metabolic Panel (07/06/17 11:37) ^ Insert Iv (07/06/17 11:37) Urinalysis - C+S If Indicated (07/06/17 11:37) Cath For Specimen (07/06/17 11:37) Labs Laboratory Tests Test 07/06/17 11:55 White Blood Count 10.3 TH/MM3 Red Blood Count 4.13 MIL/MM3 Hemoglobin 12.3 GM/DL Hematocrit 37.6 % Mean Corpuscular Volume 91.1 FL Mean Corpuscular Hemoglobin 29.7 PG Mean Corpuscular Hemoglobin Concent 32.6 % Red Cell Distribution Width 14.0 % Platelet Count 305 TH/MM3 Mean Platelet Volume 6.8 FL Neutrophils (%) (Auto) 77.6 % Lymphocytes (%) (Auto) 8.9 % Monocytes (%) (Auto) 11.4 % Eosinophils (%) (Auto) 1.4 % Basophils (%) (Auto) 0.7 % Neutrophils # (Auto) 8.0 TH/MM3 Lymphocytes # (Auto) 0.9 TH/MM3 Monocytes # (Auto) 1.2 TH/MM3 Eosinophils # (Auto) 0.1 TH/MM3 Basophils # (Auto) 0.1 TH/MM3 CBC Comment DIFF FINAL Differential Comment Blood Urea Nitrogen 17 MG/DL Creatinine 0.84 MG/DL Random Glucose 77 MG/DL Total Protein 7.3 GM/DL Albumin 2.7 GM/DL Calcium Level 9.1 MG/DL Alkaline Phosphatase 89 U/L Aspartate Amino Transf (AST/SGOT) 29 U/L Alanine Aminotransferase (ALT/SGPT) 14 U/L Total Bilirubin 1.0 MG/DL Sodium Level 140 MEQ/L Potassium Level 3.9 MEQ/L Chloride Level 106 MEQ/L Carbon Dioxide Level 26.0 MEQ/L Anion Gap 8 MEQ/L Estimat Glomerular Filtration Rate 68 ML/MIN MDM Medical Decision Making Medical Screen Exam Complete: Yes Emergency Medical Condition: Yes Interpretation(s) No tachycardia, normotensive No leukocytosis Electrolytes are reassuring Differential Diagnosis Rash, urinary tract infection, electrolyte abnormality Narrative Course This is a 67-year-old female who presents to the emergency department with a rash that has been worsening over the past week associated with some diarrhea. She has not been able to walk or transfer herself to the bathroom. She has limited assistance at home. The patient requires wound care and physical therapy assessment. I think patient requires observation as she is unable to ambulate independently, she is unkempt, and is unlikely to improve at home. Diagnosis Primary Impression: Generalized weakness Additional Impression: Rash Admitting Information Admitting Physician Requests: Observation Sherri Bailey MD Jul 06, 2017 13:13
[2017-07-06 14:30] VITALS: BP 177/72; PULSE 82; RESP 15; O2SAT 100
--- NOTE | 2017-07-06 14:31 | HHI.HP ---
[facility] Terence Askew DO Admission Diagnosis weakness, rash Diagnoses: (1) Generalized weakness (2) Rash Chief Complaint: Generalized weakness Travel History International Travel<30 Days: No Contact w/Intl Traveler <30 Da: No Traveled to Known Affected Are: No History of Present Illness 67-year-old female with a PMH of Anxiety, Depression, HTN, Cerebral Palsy and h /o CVA who presented to the ED for evaluation of generalized weakness, as well as candidal rash. Patient states the rash is so painful and severe and described as burning. she was recently over this past weekend at [facility] where patient was treated for UTI. However, patient denies being discharged with any antibiotics. She reported difficulty ambulating, bathing herself. Overall patient reported difficulty taking care of herself. Laboratory works at quite unremarkable. Review of Systems Except as stated in HPI: all other systems reviewed are Neg Past Family Social History Past Medical History Anxiety, Depression, HTN, Cerebral Palsy and h/o CVA Past Surgical History Bladder Reconstruction, Left Hip Replacement, Left Knee Replacement, Tonsillectomy Reported Medications Senna Plus 8.6-50 mg (Sennosides-Docusate Sodium) 1 Tab Tab 2 Tab PO BID Polyethylene Glycol 3350 Powder (Polyethylene Glycol) 17 Gm Pow 17 Gm PO DAILY Reported Levothyroxine (Levothyroxine Sodium) 75 Mcg Tab 75 Mcg PO HS Gabapentin 400 Mg Cap 400 Cap PO HS Trazodone (Trazodone HCl) 50 Mg Tab 50 Mg PO HS PRN Benazepril (Benazepril HCl) 10 Mg Tab 10 Mg PO DAILY Omeprazole 20 Mg Cap 20 Mg PO DAILY Aspirin Children's (Aspirin) 81 Mg Chew 81 Mg CHEW HS Amlodipine (Amlodipine Besylate) 5 Mg Tab 5 Mg PO DAILY Allergies: Coded Allergies: Sulfa (Sulfonamide Antibiotics) (Unverified Allergy, Severe, 07/06/17) penicillin G (Unverified Allergy, Severe, PCN CAUSES HIVES PER H&P, ) Family History No h/o DM or CAD Social History Alcohol Use: No Tobacco Use: No Substance Use: Yes (in past (meth)) Physical Exam Vital Signs Vital Signs Date Time Temp Pulse Resp B/P (MAP) Pulse Ox O2 Delivery O2 Flow Rate FiO2 07/06/17 11:06 97.8 71 17 109/64 (79) 97 Room Air 07/06/17 11:05 71 17 07/06/17 11:01 97.8 71 17 109/64 (79) 97 Physical Exam GENERAL: This is a well-nourished, well-developed patient, in no apparent distress. SKIN: No rashes, ecchymoses or lesions. Cool and dry. HEAD: Atraumatic. Normocephalic. No temporal or scalp tenderness. EYES: Pupils equal round and reactive. Extraocular motions intact. No scleral icterus. No injection or drainage. ENT: Nose without bleeding, purulent drainage or septal hematoma. Throat without erythema, tonsillar hypertrophy or exudate. Uvula midline. Airway patent. NECK: Trachea midline. No JVD or lymphadenopathy. Supple, nontender, no meningeal signs. CARDIOVASCULAR: Regular rate and rhythm without murmurs, gallops, or rubs. RESPIRATORY: Clear to auscultation. Breath sounds equal bilaterally. No wheezes , rales, or rhonchi. GASTROINTESTINAL: Abdomen soft, non-tender, nondistended. No hepato-splenomegaly , or palpable masses. No guarding. MUSCULOSKELETAL: Extremities without clubbing, cyanosis, or edema. No joint tenderness, effusion, or edema noted. No calf tenderness. Negative Homans sign bilaterally. NEUROLOGICAL: Awake and alert. Cranial nerves II through XII intact. Motor and sensory grossly within normal limits. Five out of 5 muscle strength in all muscle groups. Normal speech. Laboratory Laboratory Tests Test 07/06/17 11:55 White Blood Count 10.3 Red Blood Count 4.13 Hemoglobin 12.3 Hematocrit 37.6 Mean Corpuscular Volume 91.1 Mean Corpuscular Hemoglobin 29.7 Mean Corpuscular Hemoglobin Concent 32.6 Red Cell Distribution Width 14.0 Platelet Count 305 Mean Platelet Volume 6.8 Neutrophils (%) (Auto) 77.6 Lymphocytes (%) (Auto) 8.9 Monocytes (%) (Auto) 11.4 Eosinophils (%) (Auto) 1.4 Basophils (%) (Auto) 0.7 Neutrophils # (Auto) 8.0 Lymphocytes # (Auto) 0.9 Monocytes # (Auto) 1.2 Eosinophils # (Auto) 0.1 Basophils # (Auto) 0.1 CBC Comment DIFF FINAL Differential Comment Blood Urea Nitrogen 17 Creatinine 0.84 Random Glucose 77 Total Protein 7.3 Albumin 2.7 Calcium Level 9.1 Alkaline Phosphatase 89 Aspartate Amino Transf (AST/SGOT) 29 Alanine Aminotransferase (ALT/SGPT) 14 Total Bilirubin 1.0 Sodium Level 140 Potassium Level 3.9 Chloride Level 106 Carbon Dioxide Level 26.0 Anion Gap 8 Estimat Glomerular Filtration Rate 68 Result Diagram: 07/06/17 1155 07/06/17 1155 Septic Shock Reassessment Septic shock perfusion: reassessment completed Caprini VTE Risk Assessment Caprini VTE Risk Assessment: Mod/High Risk (score >= 2) Caprini Risk Assessment Model Point Value = 1 Point Value = 2 Point Value = 3 Point Value = 5 Age 41-60 Minor surgery BMI > 25 kg/m2 Swollen legs Varicose veins or History of unexplained or recurrent spontaneous Oral contraceptives or hormone replacement Sepsis (< 1 month) Serious lung disease, including pneumonia (< 1 month) Abnormal pulmonary function Acute myocardial infarction Congestive heart failure (< 1 month) History of inflammatory bowel disease Medical patient at bed rest Age 61-74 Arthroscopic surgery Major open surgery (> 45 min) Laparoscopic surgery (> 45 min) Malignancy Confined to bed (> 72 hours) Immobilizing plaster cast Central venous access Age >= 75 History of VTE Family history of VTE Factor V Leiden Prothrombin [id number] Lupus anticoagulant Anticardiolipin antibodies Elevated serum homocysteine Heparin-induced thrombocytopenia Other congenital or acquired thrombophilia Stroke (< 1 month) Elective arthroplasty Hip, pelvis, or leg fracture Acute spinal cord injury (< 1 month) Prophylaxis Regimen Total Risk Factor Score Risk Level Prophylaxis Regimen 0-1 Low Early ambulation 2 Moderate Order ONE of the following: *Sequential Compression Device (SCD) *Heparin 5000 units SQ BID 3-4 Higher Order ONE of the following medications: *Heparin 5000 units SQ TID *Enoxaparin/Lovenox 40 mg SQ daily (WT < 150 kg, CrCl > 30 mL/min) *Enoxaparin/Lovenox 30 mg SQ daily (WT < 150 kg, CrCl > 10-29 mL/min) *Enoxaparin/Lovenox 30 mg SQ BID (WT < 150 kg, CrCl > 30 mL/min) AND/OR *Sequential Compression Device (SCD) 5 or more Highest Order ONE of the following medications: *Heparin 5000 units SQ TID (Preferred with Epidurals) *Enoxaparin/Lovenox 40 mg SQ daily (WT < 150 kg, CrCl > 30 mL/min) *Enoxaparin/Lovenox 30 mg SQ daily (WT < 150 kg, CrCl > 10-29 mL/min) *Enoxaparin/Lovenox 30 mg SQ BID (WT < 150 kg, CrCl > 30 mL/min) AND *Sequential Compression Device (SCD) Assessment and Plan Problem List: (1) Generalized weakness ICD Code: R53.1 - Weakness Status: Acute (2) Rash ICD Code: R21 - Rash and other nonspecific skin eruption (3) HTN (hypertension) ICD Code: I10 - Essential (primary) hypertension Status: Acute Assessment and Plan 67-year-old female with Generalized weakness Inability to care for self Will consult bilingual patient support caseworker to arrange for safe discharge Consult PT to treat and eval Irma rash Start nystatin powder Hypertension Resume outpatient medication with holding parameters Other chronic medical conditions Resume outpatient medications DVT prophylaxis: Bilateral SCDs Code Status Full code Discussed Condition With Patient, ED physician Vladimir Khanna MD Jul 06, 2017 14:31
[2017-07-06] MEDS ORDERED: ONDANSETRON HCL 4 MG/2 ML VIAL IVP PRN (14:45)
[2017-07-06] MEDS ORDERED: SODIUM CHLORIDE 0.9% FLUSH 10 ML FLUSH IV FLUSH PRN (14:45)
[2017-07-06] MEDS ORDERED: NALOXONE HCL 0.4 MG/ML AMP IV PUSH PRN (14:45)
[2017-07-06] MEDS ORDERED: MAGNESIUM HYDROXIDE SUSP 30 ML CUP PO PRN (14:45)
[2017-07-06] MEDS ORDERED: ACETAMINOPHEN 325 MG TAB PO PRN ×2 (14:45)
[2017-07-06 15:48] LABS: AMORPHOUS SEDIMENT, URINE RARE; BACTERIA, URINE OCC /hpf; BILIRUBIN, URINE NEG (NEG); BLOOD, URINE NEG (NEG); GLUCOSE,URINE NEG (NEG); KETONE, URINE 40 mg/dL (NEG); MUCUS URINE FEW /lpf (OCC); NITRITE,URINE NEG (NEG); PH, URINE 5.5 (5.0-8.5); SQUAMOUS EPITHELIAL CELL URINE <1 /hpf (0-5); URINE COLOR YELLOW (YELLW/STRAW); URINE LEUKOCYTE ESTERASE TRACE (NEG)
[2017-07-06 16:38] VITALS: BP 140/76; PULSE 77; RESP 18; TEMP 98; O2SAT 98
[2017-07-06] MEDS: NYSTATIN 100,000 U/GM PWD 15 GM BTL TOPICAL SCH (21:00)
[2017-07-06] MEDS: SODIUM CHLORIDE 0.9% FLUSH 10 ML FLUSH IV FLUSH SCH (21:00)
[2017-07-06 21:49] VITALS: BP 115/55; PULSE 72; RESP 20; TEMP 98.7; O2SAT 95
[2017-07-06] MEDS: traZODone HCL 50 MG TAB PO PRN (23:57)
[2017-07-06] MEDS: LEVOTHYROXINE SODIUM 75 MCG TAB PO SCH (23:58)
[2017-07-06] MEDS: ASPIRIN 81 MG CHEW TAB CHEW SCH (23:58)
[2017-07-06] MEDS: GABAPENTIN 400 MG CAP PO SCH (23:58)
[2017-07-07] VITALS: BP 110/55; PULSE 69; RESP 16; TEMP 98.9; O2SAT 95
[2017-07-07 04:27] VITALS: BP 102/54; PULSE 60; RESP 18; TEMP 98.3; O2SAT 97
[2017-07-07 07:43] VITALS: BP 106/53; PULSE 63; RESP 16; TEMP 98.3; O2SAT 95
--- NOTE | 2017-07-07 08:36 | HHI.PR ---
Subjective Remarks In bed, appears in nad. No n/v/d/c. Feels improving. Rash improving. No fever ro chills. Fels weak but improved. Objective Vitals Vital Signs Date Time Temp Pulse Resp B/P (MAP) Pulse Ox O2 Delivery O2 Flow Rate FiO2 07/07/17 07:43 98.3 63 16 106/53 (70) 95 07/07/17 04:27 98.3 60 18 102/54 (70) 97 07/07/17 00:00 98.9 69 16 110/55 (73) 95 07/06/17 21:49 98.7 72 20 115/55 (75) 95 07/06/17 16:38 98.0 77 18 140/76 (97) 98 07/06/17 16:38 07/06/17 14:30 82 15 177/72 (107) 100 Room Air 07/06/17 11:06 97.8 71 17 109/64 (79) 97 Room Air 07/06/17 11:05 71 17 07/06/17 11:01 97.8 71 17 109/64 (79) 97 I/O 07/06/17 07/06/17 07/06/17 07/07/17 07/07/17 07/07/17 07:00 15:00 23:00 07:00 15:00 23:00 Intake Total 100 ml Output Total 550 ml Balance -450 ml Intake Oral 100 ml Output Urine Total 550 ml # Voids 1 1 Result Diagram: 07/06/17 1155 07/06/17 1155 Objective Remarks GENERAL: This is a well-nourished, well-developed patient, in no apparent distress. SKIN: Intertriginous fungal rash perineum, mid thighs, red beefy rash. No ecchymoses or lesions. Cool and dry. CARDIOVASCULAR: Regular rate and rhythm without murmurs, gallops, or rubs. RESPIRATORY: Clear to auscultation. Breath sounds equal bilaterally. No wheezes , rales, or rhonchi. GASTROINTESTINAL: Abdomen soft, non-tender, nondistended. No hepato-splenomegaly , or palpable masses. No guarding. MUSCULOSKELETAL: Extremities without clubbing, cyanosis, or edema. No joint tenderness, effusion, or edema noted. No calf tenderness. Negative Homans sign bilaterally. NEUROLOGICAL: Awake and alert. Cranial nerves II through XII intact. Motor and sensory grossly within normal limits. Five out of 5 muscle strength in all muscle groups. Normal speech. A/P Problem List: (1) Generalized weakness ICD Code: R53.1 - Weakness Status: Acute (2) Rash ICD Code: R21 - Rash and other nonspecific skin eruption (3) HTN (hypertension) ICD Code: I10 - Essential (primary) hypertension Status: Acute Assessment and Plan 67-year-old female with Generalized weakness Inability to care for self Will consult case finisher to arrange for safe discharge Consult PT to treat and eval, poss DC snf Cutaneous candidiasis Start nystatin cream Hypertension Resume outpatient medication with holding parameters Other chronic medical conditions Resume outpatient medications DVT prophylaxis: Bilateral SCDs Code Status Full code Discussed Condition With Patient, nurse Discharge Planning DC to SNF in stable condition to follow up as OP with PCP and consultants Diet healthy heart Activity ad pillo as tolerated Meds per med reconciliations I spent 35 minutes [id number] with the patient or on the hanna discussing the patient's disposition, prognosis, and plan of care with her caregivers. Over half the time spent was devoted to counseling the patient regarding placement and coordinating care with caregivers and case management. Time of discharge > 30minutes. Rica Dinero MD Jul 07, 2017 08:36
[2017-07-07] MEDS: amLODIPine BESYLATE 5 MG TAB PO SCH (09:00)
[2017-07-07] MEDS: LISINOPRIL 10 MG TAB PO SCH (09:00)
[2017-07-07] MEDS: SODIUM CHLORIDE 0.9% FLUSH 10 ML FLUSH IV FLUSH SCH ×2 (09:18→20:38)
[2017-07-07] MEDS: NYSTATIN 100,000 U/GM PWD 15 GM BTL TOPICAL SCH ×2 (09:18→20:37)
[2017-07-07] MEDS: PANTOPRAZOLE SOD 20 MG DELAYED RELEASE TAB PO SCH (09:19)
[2017-07-07 10:50] LABS: AUTOMATED NEUTROPHIL # 5.5 TH/MM3 (1.8-7.7); BASOPHIL % 0.5 % (0.0-2.0); EOSINOPHIL # 0.3 TH/MM3 (0-0.4); EOSINOPHIL % 3.6 % (0.0-4.0); HEMATOCRIT 35.8 % (35.0-46.0); HEMOGLOBIN 11.8 GM/DL (11.6-15.3); LYMPH % 12.4 % (9.0-44.0); LYMPHOCYTE # 0.9 TH/MM3 (1.0-4.8); MEAN CORPUSCULAR HEMOGLOBIN 29.8 PG (27.0-34.0); MEAN CORPUSCULAR HGB CONC 33.1 % (32.0-36.0); MEAN PLATELET VOLUME 7.2 FL (7.0-11.0); MONO % 9.7 % (0.0-8.0); MONOCYTE # 0.7 TH/MM3 (0-0.9); NEUT % 73.8 % (16.0-70.0); PLATELET COUNT 286 TH/MM3 (150-450); RED BLOOD COUNT 3.98 MIL/MM3 (4.00-5.30); RED CELL DISTRIBUTION WIDTH 13.5 % (11.6-17.2); WHITE BLOOD COUNT 7.5 TH/MM3 (4.0-11.0)
[2017-07-07 10:59] VITALS: BP 98/56; PULSE 66; RESP 18; TEMP 97.6; O2SAT 96
[2017-07-07 11:20] LABS: ALBUMIN 2.1 GM/DL (3.4-5.0); ALKALINE PHOSPHATASE 73 U/L (45-117); ALT (GPT) 12 U/L (10-53); AST (GOT) 25 U/L (15-37); BICARBONATE 26.2 MEQ/L (21.0-32.0); BLOOD UREA NITROGEN 13 MG/DL (7-18); CALCIUM 8.4 MG/DL (8.5-10.1); CHLORIDE 108 MEQ/L (98-107); GLOMERULAR FILTRATION RATE 72 ML/MIN (>89); GLUCOSE,RANDOM 95 MG/DL (74-106); SODIUM (NA) 141 MEQ/L (136-145); TOTAL BILIRUBIN ADULT 0.7 MG/DL (0.2-1.0)
[2017-07-07] MEDS ORDERED: NYST15T TOPICAL (11:54)
--- NOTE | 2017-07-07 11:55 | HHI.DCPOC ---
Discharge Care Plan Diagnosis: (1) Rash (2) Generalized weakness Goals to Promote Your Health * To prevent worsening of your condition and complications * To maintain your health at the optimal level Directions to Meet Your Goals Take your medications as prescribed Follow your dietary instruction Follow activity as directed Keep your appointments as scheduled Take your immunizations and boosters as scheduled If your symptoms worsen call your PCP, if no PCP go to Urgent Care Center or Emergency Room Smoking is Dangerous to Your Health. Avoid second hand smoke Call the 24-hour hour crisis hotline for domestic abuse at Lashonda Palomo Jul 07, 2017 11:55
[2017-07-07] MEDS ORDERED: POTASSIUM CHLORIDE 10 MEQ CONTROLLED RELEASE TAB PO ONE (12:00)
[2017-07-07 16:02] VITALS: BP 106/59; PULSE 57; RESP 18; TEMP 98; O2SAT 97
[2017-07-07] MEDS: LEVOTHYROXINE SODIUM 75 MCG TAB PO SCH (20:37)
[2017-07-07] MEDS: ASPIRIN 81 MG CHEW TAB CHEW SCH (20:38)
[2017-07-07] MEDS: GABAPENTIN 400 MG CAP PO SCH (20:38)
[2017-07-07] MEDS: traZODone HCL 50 MG TAB PO PRN (21:02)
[2017-07-07 22:06] VITALS: BP 115/59; PULSE 66; RESP 19; TEMP 98; O2SAT 97
[2017-07-08] VITALS (7 sets, daily range): BP systolic 120–158; BP diastolic 58–74; PULSE 57–64; RESP 15–20; TEMP 95.6–99; O2SAT 96–99
[2017-07-08] MEDS: NYSTATIN 100,000 U/GM PWD 15 GM BTL TOPICAL SCH ×2 (10:18→23:09)
[2017-07-08] MEDS: LISINOPRIL 10 MG TAB PO SCH (10:19)
[2017-07-08] MEDS: SODIUM CHLORIDE 0.9% FLUSH 10 ML FLUSH IV FLUSH SCH ×2 (10:19→23:10)
[2017-07-08] MEDS: amLODIPine BESYLATE 5 MG TAB PO SCH (10:20)
[2017-07-08] MEDS: PANTOPRAZOLE SOD 20 MG DELAYED RELEASE TAB PO SCH (10:20)
--- NOTE | 2017-07-08 14:21 | HHI.PR ---
Subjective Remarks Patien tin the bed says rash is improving some but is painful at times. No fever or chills No n/v/d/c. Objective Vitals Vital Signs Date Time Temp Pulse Resp B/P (MAP) Pulse Ox O2 Delivery O2 Flow Rate FiO2 07/08/17 13:22 95.6 61 15 158/68 (98) 98 07/08/17 09:07 96.2 57 20 138/67 (90) 99 07/08/17 04:00 99.0 64 20 136/63 (87) 96 07/08/17 00:00 98.6 60 20 128/58 (81) 98 07/07/17 22:06 98.0 66 19 115/59 (77) 97 07/07/17 16:02 98.0 57 18 106/59 (75) 97 I/O 07/07/17 07/07/17 07/07/17 07/08/17 07/08/17 07/08/17 07:00 15:00 23:00 07:00 15:00 23:00 Intake Total 600 ml 280 ml Output Total 0 ml 300 ml Balance 600 ml -20 ml Intake Oral 600 ml 280 ml Output Urine Total 300 ml Stool Total 0 ml # Voids 1 3 # Bowel Movements 0 Result Diagram: 07/07/17 1000 07/07/17 1000 Objective Remarks GENERAL: This is a well-nourished, well-developed patient, in no apparent distress. SKIN: Intertriginous fungal rash perineum, mid thighs, red beefy rash. No ecchymoses or lesions. Cool and dry. CARDIOVASCULAR: Regular rate and rhythm without murmurs, gallops, or rubs. RESPIRATORY: Clear to auscultation. Breath sounds equal bilaterally. No wheezes , rales, or rhonchi. GASTROINTESTINAL: Abdomen soft, non-tender, nondistended. No hepato-splenomegaly , or palpable masses. No guarding. MUSCULOSKELETAL: Extremities without clubbing, cyanosis, or edema. No joint tenderness, effusion, or edema noted. No calf tenderness. Negative Homans sign bilaterally. NEUROLOGICAL: Awake and alert. Cranial nerves II through XII intact. Motor and sensory grossly within normal limits. Five out of 5 muscle strength in all muscle groups. Normal speech. A/P Problem List: (1) Generalized weakness ICD Code: R53.1 - Weakness Status: Acute (2) Rash ICD Code: R21 - Rash and other nonspecific skin eruption (3) HTN (hypertension) ICD Code: I10 - Essential (primary) hypertension Status: Acute Assessment and Plan 67-year-old female with Generalized weakness Inability to care for self Will consult case specialist to arrange for safe discharge Consult PT to treat and eval, poss DC snf Cutaneous candidiasis Start nystatin cream Hypertension Resume outpatient medication with holding parameters Other chronic medical conditions Resume outpatient medications DVT prophylaxis: Bilateral SCDs Code Status Full code Discussed Condition With Patient, nurse Discharge Planning DC to SNF in stable condition to follow up as OP with PCP and consultants Diet healthy heart Activity ad pillo as tolerated Meds per med reconciliations I spent 35 minutes [id number] with the patient or on the hanna discussing the patient's disposition, prognosis, and plan of care with her caregivers. Over half the time spent was devoted to counseling the patient regarding placement and coordinating care with caregivers and case management. Time of discharge > 30minutes. Rica Dinero MD Jul 08, 2017 14:21
[2017-07-08] MEDS: GABAPENTIN 400 MG CAP PO SCH (23:09)
[2017-07-08] MEDS: traZODone HCL 50 MG TAB PO PRN (23:09)
[2017-07-08] MEDS: ASPIRIN 81 MG CHEW TAB CHEW SCH (23:10)
[2017-07-08] MEDS: LEVOTHYROXINE SODIUM 75 MCG TAB PO SCH (23:10)
[2017-07-09 05:00] VITALS: BP 125/61; PULSE 57; RESP 16; TEMP 97.8; O2SAT 99
[2017-07-09] MEDS: amLODIPine BESYLATE 5 MG TAB PO SCH (08:16)
[2017-07-09] MEDS: LISINOPRIL 10 MG TAB PO SCH (08:16)
[2017-07-09] MEDS: NYSTATIN 100,000 U/GM PWD 15 GM BTL TOPICAL SCH ×2 (08:16→21:17)
[2017-07-09] MEDS: PANTOPRAZOLE SOD 20 MG DELAYED RELEASE TAB PO SCH (08:16)
[2017-07-09] MEDS: SODIUM CHLORIDE 0.9% FLUSH 10 ML FLUSH IV FLUSH SCH ×2 (08:17→21:15)
[2017-07-09 08:28] VITALS: BP 117/56; PULSE 56; RESP 18; TEMP 97.9; O2SAT 99
[2017-07-09 12:00] VITALS: BP 109/56; PULSE 59; RESP 18; TEMP 96.5; O2SAT 96
--- NOTE | 2017-07-09 15:25 | HHI.PR ---
Subjective Remarks Patient with improving rash. Says she had diarrhea before. No fever or chills. No n/v/d/c. Denies chest pain or sob. Objective Vitals Vital Signs Date Time Temp Pulse Resp B/P (MAP) Pulse Ox O2 Delivery O2 Flow Rate FiO2 07/09/17 12:00 96.5 59 18 109/56 (73) 96 07/09/17 08:28 97.9 56 18 117/56 (76) 99 07/09/17 05:00 97.8 57 16 125/61 (82) 99 07/08/17 23:44 97.8 58 16 120/65 (83) 98 07/08/17 21:04 97.9 59 17 132/67 (88) 99 07/08/17 17:53 95.9 60 16 134/74 (94) 99 I/O 07/08/17 07/08/17 07/08/17 07/09/17 07/09/17 07/09/17 06:59 14:59 22:59 06:59 14:59 22:59 Intake Total 280 ml 1000 ml 100 ml Output Total 300 ml 0 ml Balance -20 ml 1000 ml 100 ml Intake Oral 280 ml 1000 ml 100 ml Output Urine Total 300 ml Stool Total 0 ml # Voids 6 4 2 # Bowel Movements 0 Result Diagram: 07/07/17 1000 07/07/17 1000 Objective Remarks GENERAL: This is a well-nourished, well-developed patient, in no apparent distress. SKIN: Intertriginous fungal rash perineum, mid thighs, red beefy rash. No ecchymoses or lesions. Cool and dry. CARDIOVASCULAR: Regular rate and rhythm without murmurs, gallops, or rubs. RESPIRATORY: Clear to auscultation. Breath sounds equal bilaterally. No wheezes , rales, or rhonchi. GASTROINTESTINAL: Abdomen soft, non-tender, nondistended. No hepato-splenomegaly , or palpable masses. No guarding. MUSCULOSKELETAL: Extremities without clubbing, cyanosis, or edema. No joint tenderness, effusion, or edema noted. No calf tenderness. Negative Homans sign bilaterally. NEUROLOGICAL: Awake and alert. Cranial nerves II through XII intact. Motor and sensory grossly within normal limits. Five out of 5 muscle strength in all muscle groups. Normal speech. A/P Problem List: (1) Generalized weakness ICD Code: R53.1 - Weakness Status: Acute (2) Rash ICD Code: R21 - Rash and other nonspecific skin eruption (3) HTN (hypertension) ICD Code: I10 - Essential (primary) hypertension Status: Acute Assessment and Plan 67-year-old female with Generalized weakness Inability to care for self Will consult sample case porter to arrange for safe discharge Consult PT to treat and eval, poss DC snf Cutaneous candidiasis - on nystatin cream UTI Enterococcus faecalis. Penicillin and sulfa allergy. Start macrobid Hypertension. Resume outpatient medication with holding parameters Other chronic medical conditions. Resume outpatient medications DVT prophylaxis: Bilateral SCDs Code Status Full code Discussed Condition With Patient, nurse Rica Dinero MD Jul 09, 2017 15:25
[2017-07-09 16:00] VITALS: BP 106/59; PULSE 82; RESP 18; TEMP 97.6; O2SAT 95
[2017-07-09 19:18] LABS: AMORPHOUS SEDIMENT, URINE RARE; BACTERIA, URINE MANY /hpf; BILIRUBIN, URINE NEG (NEG); BLOOD, URINE NEG (NEG); GLUCOSE,URINE NEG (NEG); KETONE, URINE NEG (NEG); MUCUS URINE FEW /lpf (OCC); NITRITE,URINE POS (NEG); URINE COLOR YELLOW (YELLW/STRAW); URINE LEUKOCYTE ESTERASE LARGE (NEG); WHITE BLOOD CELL CLUMPS FEW
[2017-07-09 19:27] VITALS: BP 142/65; PULSE 62; RESP 18; TEMP 97.7; O2SAT 99
[2017-07-09] MEDS: traZODone HCL 50 MG TAB PO PRN (21:15)
[2017-07-09] MEDS: GABAPENTIN 400 MG CAP PO SCH (21:15)
[2017-07-09] MEDS: ASPIRIN 81 MG CHEW TAB CHEW SCH (21:15)
[2017-07-09] MEDS: LEVOTHYROXINE SODIUM 75 MCG TAB PO SCH (21:15)
[2017-07-09] MEDS: NITROFURANTOIN MONOHYD MACROCR 100 MG CAP PO SCH (21:33)
[2017-07-09 23:19] VITALS: BP 111/67; PULSE 66; RESP 18; TEMP 99; O2SAT 95
[2017-07-10] VITALS (7 sets, daily range): BP systolic 120–161; BP diastolic 60–77; PULSE 60–70; RESP 16–20; TEMP 97.9–98.6; O2SAT 96–98
[2017-07-10] MEDS: PANTOPRAZOLE SOD 20 MG DELAYED RELEASE TAB PO SCH (10:04)
[2017-07-10] MEDS: NITROFURANTOIN MONOHYD MACROCR 100 MG CAP PO SCH ×2 (10:04→17:15)
[2017-07-10] MEDS: amLODIPine BESYLATE 5 MG TAB PO SCH (10:04)
[2017-07-10] MEDS: SODIUM CHLORIDE 0.9% FLUSH 10 ML FLUSH IV FLUSH SCH ×2 (10:05→19:58)
[2017-07-10] MEDS: LISINOPRIL 10 MG TAB PO SCH (10:06)
[2017-07-10] MEDS: NYSTATIN 100,000 U/GM PWD 15 GM BTL TOPICAL SCH ×2 (10:06→19:56)
--- NOTE | 2017-07-10 16:37 | HHI.PR ---
Subjective Remarks Sleepy. Says rash improved/ No n/v/d/c. Denies chest pain or sob. No fever or chills. no diarrhea Objective Vitals Vital Signs Date Time Temp Pulse Resp B/P (MAP) Pulse Ox O2 Delivery O2 Flow Rate FiO2 07/10/17 16:20 97.9 68 20 126/60 (82) 96 07/10/17 12:19 98.2 70 20 128/64 (85) 96 07/10/17 08:09 98.6 70 20 120/60 (80) 97 07/10/17 04:36 98.1 60 18 122/60 (80) 97 07/09/17 23:19 99.0 66 18 111/67 (82) 95 07/09/17 19:27 97.7 62 18 142/65 (90) 99 I/O 07/09/17 07/09/17 07/09/17 07/10/17 07/10/17 07/10/17 07:00 15:00 23:00 07:00 15:00 23:00 Intake Total 100 ml 240 ml Output Total 775 ml Balance 100 ml 240 ml -775 ml Intake Oral 100 ml 240 ml Output Urine Total 775 ml # Voids 4 2 1 Result Diagram: 07/07/17 1000 07/07/17 1000 Objective Remarks GENERAL: This is a well-nourished, well-developed patient, in no apparent distress. SKIN: Intertriginous fungal rash perineum, mid thighs, red beefy rash. No ecchymoses or lesions. Cool and dry. CARDIOVASCULAR: Regular rate and rhythm without murmurs, gallops, or rubs. RESPIRATORY: Clear to auscultation. Breath sounds equal bilaterally. No wheezes , rales, or rhonchi. GASTROINTESTINAL: Abdomen soft, non-tender, nondistended. No hepato-splenomegaly , or palpable masses. No guarding. MUSCULOSKELETAL: Extremities without clubbing, cyanosis, or edema. No joint tenderness, effusion, or edema noted. No calf tenderness. Negative Homans sign bilaterally. NEUROLOGICAL: Awake and alert. Cranial nerves II through XII intact. Motor and sensory grossly within normal limits. Five out of 5 muscle strength in all muscle groups. Normal speech. A/P Problem List: (1) Generalized weakness ICD Code: R53.1 - Weakness Status: Acute (2) Rash ICD Code: R21 - Rash and other nonspecific skin eruption (3) HTN (hypertension) ICD Code: I10 - Essential (primary) hypertension Status: Acute Assessment and Plan 67-year-old female with Generalized weakness Inability to care for self Will consult case management social worker to arrange for safe discharge Consult PT to treat and eval, poss [place] snf Cutaneous candidiasis - on nystatin cream UTI Enterococcus faecalis. Penicillin and sulfa allergy. Start macrobid Hypertension. Resume outpatient medication with holding parameters Other chronic medical conditions. Resume outpatient medications DVT prophylaxis: Bilateral SCDs Code Status Full code Discussed Condition With Patient, nurse Rica Dinero MD Jul 10, 2017 16:37
[2017-07-10] MEDS: traZODone HCL 50 MG TAB PO PRN (19:57)
[2017-07-10] MEDS: LEVOTHYROXINE SODIUM 75 MCG TAB PO SCH (19:57)
[2017-07-10] MEDS: ASPIRIN 81 MG CHEW TAB CHEW SCH (19:57)
[2017-07-10] MEDS: GABAPENTIN 400 MG CAP PO SCH (19:57)
[2017-07-11 03:22] VITALS: BP 125/61; PULSE 53; RESP 17; TEMP 98.2; O2SAT 95
[2017-07-11 08:06] VITALS: BP 120/60; PULSE 78; RESP 20; TEMP 98.2; O2SAT 96
[2017-07-11] MEDS: NYSTATIN 100,000 U/GM PWD 15 GM BTL TOPICAL SCH (09:00)
[2017-07-11] MEDS: LISINOPRIL 10 MG TAB PO SCH (09:57)
[2017-07-11] MEDS: PANTOPRAZOLE SOD 20 MG DELAYED RELEASE TAB PO SCH (09:57)
[2017-07-11] MEDS: amLODIPine BESYLATE 5 MG TAB PO SCH (09:57)
[2017-07-11] MEDS: SODIUM CHLORIDE 0.9% FLUSH 10 ML FLUSH IV FLUSH SCH (09:58)
[2017-07-11] MEDS: NITROFURANTOIN MONOHYD MACROCR 100 MG CAP PO SCH ×2 (09:58→17:26)
--- NOTE | 2017-07-11 11:02 | HHI.PR ---
Subjective Remarks Feels better. No n/v/d/c. No fever or chills. Rash improving. Eating well. Denies cp, sob. Objective Vitals Vital Signs Date Time Temp Pulse Resp B/P (MAP) Pulse Ox O2 Delivery O2 Flow Rate FiO2 07/11/17 08:06 98.2 78 20 120/60 (80) 96 07/11/17 03:22 98.2 53 17 125/61 (82) 95 07/10/17 23:22 97.9 62 16 158/72 (100) 98 07/10/17 21:39 60 161/70 (100) 07/10/17 19:12 98.1 60 17 154/77 (102) 98 07/10/17 16:20 97.9 68 20 126/60 (82) 96 07/10/17 12:19 98.2 70 20 128/64 (85) 96 I/O 07/10/17 07/10/17 07/10/17 07/11/17 07/11/17 07/11/17 07:00 15:00 23:00 07:00 15:00 23:00 Output Total 775 ml Balance -775 ml Output Urine Total 775 ml # Voids 1 4 Result Diagram: 07/07/17 1000 07/07/17 1000 Objective Remarks GENERAL: This is a well-nourished, well-developed patient, in no apparent distress. SKIN: Intertriginous fungal rash perineum, mid thighs, red beefy rash. No ecchymoses or lesions. Cool and dry. CARDIOVASCULAR: Regular rate and rhythm without murmurs, gallops, or rubs. RESPIRATORY: Clear to auscultation. Breath sounds equal bilaterally. No wheezes , rales, or rhonchi. GASTROINTESTINAL: Abdomen soft, non-tender, nondistended. No hepato-splenomegaly , or palpable masses. No guarding. MUSCULOSKELETAL: Extremities without clubbing, cyanosis, or edema. No joint tenderness, effusion, or edema noted. No calf tenderness. Negative Homans sign bilaterally. NEUROLOGICAL: Awake and alert. Cranial nerves II through XII intact. Motor and sensory grossly within normal limits. Five out of 5 muscle strength in all muscle groups. Normal speech. A/P Problem List: (1) Generalized weakness ICD Code: R53.1 - Weakness Status: Acute (2) Rash ICD Code: R21 - Rash and other nonspecific skin eruption (3) HTN (hypertension) ICD Code: I10 - Essential (primary) hypertension Status: Acute Assessment and Plan 67-year-old female with Generalized weakness Inability to care for self Will consult case packer and sealer to arrange for safe discharge Consult PT to treat and eval, poss [facility] Cutaneous candidiasis - on nystatin cream UTI Enterococcus faecalis. Penicillin and sulfa allergy. Start macrobid Hypertension. Resume outpatient medication with holding parameters Other chronic medical conditions. Resume outpatient medications DVT prophylaxis: Bilateral SCDs Code Status Full code Discussed Condition With Patient, nurse DC to SNF Rica Dinero MD Jul 11, 2017 11:02
[2017-07-11 11:59] VITALS: BP 128/68; PULSE 68; RESP 20; TEMP 97.9; O2SAT 97
--- NOTE | 2017-07-11 18:24 | PD.CONS ---
HPI Service Urology Consult Requested By Reason for Consult urinary retention, UTI Primary Care Physician Terence Askew DO Diagnosis: (1) Generalized weakness ICD Code: R53.1 - Weakness (2) Rash ICD Code: R21 - Rash and other nonspecific skin eruption (3) HTN (hypertension) ICD Code: I10 - Essential (primary) hypertension History of Present Illness 67-year-old female with history of cerebral palsy, stroke as well as a bladder reconstruction procedure years ago seen in consultation for urinary retention and history of urine tract infections. Patient reported having difficulty in voiding prior to hospitalization he has sensation of incomplete emptying. She has also had history of multiple urinary tract infections. Currently denies any fevers chills nausea vomiting. No abdominal flank pain. No hematuria Review of Systems ROS Limitations: Clinical Condition Constitutional: DENIES: Fever Eyes: DENIES: Blurred vision Ears, nose, mouth, throat: DENIES: Hearing loss Respiratory: DENIES: Cough Cardiovascular: DENIES: Chest pain Gastrointestinal: DENIES: Abdominal pain Musculoskeletal: COMPLAINS OF: Stiffness Neurologic: COMPLAINS OF: Abnormal gait Psychiatric: COMPLAINS OF: Anxiety Except as stated in HPI: all other systems reviewed are Neg Past Family Social History Past Medical History Anxiety, Depression, HTN, Cerebral Palsy and h/o CVA Past Surgical History Bladder Reconstruction, Left Hip Replacement, Left Knee Replacement, Tonsillectomy Reported Medications Reported Meds & Active Scripts Active Nystatin Topical (Nystatin) 100,000 unit/gm Cream 1 Applic TOPICAL BID Senna Plus 8.6-50 mg (Sennosides-Docusate Sodium) 1 Tab Tab 2 Tab PO BID Polyethylene Glycol 3350 Powder (Polyethylene Glycol) 17 Gm Pow 17 Gm PO DAILY Reported Levothyroxine (Levothyroxine Sodium) 75 Mcg Tab 75 Mcg PO HS Gabapentin 400 Mg Cap 400 Cap PO HS Trazodone (Trazodone HCl) 50 Mg Tab 50 Mg PO HS PRN Benazepril (Benazepril HCl) 10 Mg Tab 10 Mg PO DAILY Omeprazole 20 Mg Cap 20 Mg PO DAILY Aspirin Children's (Aspirin) 81 Mg Chew 81 Mg CHEW HS Amlodipine (Amlodipine Besylate) 5 Mg Tab 5 Mg PO DAILY Allergies: Coded Allergies: Sulfa (Sulfonamide Antibiotics) (Unverified Allergy, Severe, 07/06/17) penicillin G (Unverified Allergy, Severe, PCN CAUSES HIVES PER H&P, ) Active Ordered Medications Current Medications Medications (Trade) Dose Ordered Sig/Mykel Route Start Time Stop Time Status Last Admin (NS Flush) 2 ml UNSCH PRN IV FLUSH 07/06/17 14:45 (NS Flush) 2 ml BID IV FLUSH 07/06/17 21:00 07/11/17 09:58 (Tylenol) 650 mg Q4H PRN PO 07/06/17 14:45 (Zofran Inj) 4 mg Q6H PRN IVP 07/06/17 14:45 (Tylenol) 650 mg Q6H PRN PO 07/06/17 14:45 07/10/17 19:59 (Narcan Inj) 0.4 mg UNSCH PRN IV PUSH 07/06/17 14:45 (Milk Of Magnesia Liq) 30 ml Q12H PRN PO 07/06/17 14:45 (Mycostatin Powder) 1 applic Q12HR TOPICAL 07/06/17 21:00 07/10/17 19:56 (Norvasc) 5 mg DAILY PO 07/07/17 09:00 07/11/17 09:57 (Aspirin Chew) 81 mg HS CHEW 07/06/17 21:00 07/10/17 19:57 (Prinivil) 10 mg DAILY PO 07/07/17 09:00 07/11/17 09:57 (Neurontin) 400 mg HS PO 07/06/17 21:00 07/10/17 19:57 (Synthroid) 75 mcg HS PO 07/06/17 21:00 07/10/17 19:57 (Desyrel) 50 mg HS PRN PO 07/06/17 14:45 07/10/17 19:57 (Protonix) 20 mg DAILY PO 07/07/17 09:00 07/11/17 09:57 (Macrobid) 100 mg BIDPC PO 07/09/17 20:45 07/11/17 17:26 Family History family history reviewed and noncontributory to present illness. Social History No tobacco, no alcohol. History of meth use Physical Exam Vital Signs Date Time Temp Pulse Resp B/P (MAP) Pulse Ox O2 Delivery O2 Flow Rate FiO2 07/11/17 11:59 97.9 68 20 128/68 (88) 97 07/11/17 08:06 98.2 78 20 120/60 (80) 96 07/11/17 03:22 98.2 53 17 125/61 (82) 95 07/10/17 23:22 97.9 62 16 158/72 (100) 98 07/10/17 21:39 60 161/70 (100) 07/10/17 19:12 98.1 60 17 154/77 (102) 98 Physical Exam GENERAL: This is a well-nourished, well-developed patient, in no apparent distress. SKIN: No ecchymoses or lesions. Cool and dry. HEAD: Atraumatic. Normocephalic.. EYES: Extraocular motions intact. No scleral icterus. No injection or drainage. ENT: Nose without bleeding, purulent drainage, Airway patent. NECK: Trachea midline.. CARDIOVASCULAR: Normal pulses RESPIRATORY: Nonlabored GASTROINTESTINAL: Abdomen soft, non-tender, nondistended MUSCULOSKELETAL: Extremities without clubbing, cyanosis, or edema. NEUROLOGICAL: Awake and alert. Normal speech, however somewhat slurred with facial droop. Lab results reviewed: Yes Date/Time Source Procedure Growth Status 07/09/17 15:53 Urine Clean Catch Urine Culture - Preliminary Enterococcus Faecalis Resulted Result Diagram: 07/07/17 1000 07/07/17 1000 Personally reviewed images: Yes Assessment and Plan Problem List: (1) Urinary retention with incomplete bladder emptying ICD Code: R33.9 - Retention of urine, unspecified Status: Acute (2) UTI (urinary tract infection) ICD Code: N39.0 - Urinary tract infection, site not specified Status: Acute Assessment and Plan -Urinary retention/difficulty voiding may be due to her neurological history of cerebral palsy as well as stroke. In addition a vague history of bladder reconstruction procedure may result in a somewhat acontractile bladder. - Continue treatment for UTI. - If patient unable to void recommend placement of Roa catheter - Patient will require evaluation for urinary voiding dysfunction with likely cystoscopy and urodynamic study which may be completed as an outpatient. - Patient is planned to be transferred to a rehabilitation facility and she may follow up Urology as an outpatient. She is clear for discharge from Urology standpoint. Estuardo Harrell MD Jul 11, 2017 18:24
[2017-07-11] MEDS ORDERED: MACR100C2 PO (18:50)
--- NOTE | 2017-07-11 18:53 | HHI.DS ---
Discharge Summary Admission Date Jul 06, 2017 at 14:19 Discharge Date: Jul 11, 2017 Admitting Diagnosis weakness, rash (1) Generalized weakness ICD Code: R53.1 - Weakness Status: Acute (2) Rash ICD Code: R21 - Rash and other nonspecific skin eruption (3) HTN (hypertension) ICD Code: I10 - Essential (primary) hypertension Status: Acute Procedures none Brief History - From Admission 67-year-old female with a PMH of Anxiety, Depression, HTN, Cerebral Palsy and h /o CVA who presented to the ED for evaluation of generalized weakness, as well as candidal rash. Patient states the rash is so painful and severe and described as burning. she was recently over this past weekend at [facility] where patient was treated for UTI. However, patient denies being discharged with any antibiotics. She reported difficulty ambulating, bathing herself. Overall patient reported difficulty taking care of herself. Laboratory works at quite unremarkable. CBC/BMP: 07/07/17 1000 07/07/17 1000 Significant Findings Laboratory Tests Test 07/09/17 15:53 Urine Turbidity HAZY (CLEAR) Urine Nitrite POS (NEG) Urine Leukocyte Esterase LARGE (NEG) Urine WBC 26 /hpf (0-5) Urine WBC Clumps FEW (NONE) Urine Bacteria MANY /hpf (NONE) Urine Mucus FEW /lpf (OCC) PE at Discharge GENERAL: This is a well-nourished, well-developed patient, in no apparent distress. SKIN: Intertriginous fungal rash perineum, mid thighs, red beefy rash. No ecchymoses or lesions. Cool and dry. CARDIOVASCULAR: Regular rate and rhythm without murmurs, gallops, or rubs. RESPIRATORY: Clear to auscultation. Breath sounds equal bilaterally. No wheezes , rales, or rhonchi. GASTROINTESTINAL: Abdomen soft, non-tender, nondistended. No hepato-splenomegaly , or palpable masses. No guarding. MUSCULOSKELETAL: Extremities without clubbing, cyanosis, or edema. No joint tenderness, effusion, or edema noted. No calf tenderness. Negative Homans sign bilaterally. NEUROLOGICAL: Awake and alert. Cranial nerves II through XII intact. Motor and sensory grossly within normal limits. Five out of 5 muscle strength in all muscle groups. Normal speech. Hospital Course 67-year-old female with Generalized weakness Inability to care for self Will consult continuous pillowcase cutter to arrange for safe discharge Consult PT to treat and trip [place] [facility] Cutaneous candidiasis - on nystatin cream UTI Enterococcus faecalis. Penicillin and sulfa allergy. Treat with macrobid Urinary retention: to follow up as OP with urology , avoid carmen as patient with UTIs Hypertension. Resume outpatient medication with holding parameters Other chronic medical conditions. Resume outpatient medications DVT prophylaxis: Bilateral SCDs Code Status Full code Discussed Condition With Patient, nurse DC to SNF in stable condition to follow up as OP with PCP and consultants Pt Condition on Discharge: Stable Discharge Disposition: Discharge to SNF Discharge Time: > 30 minutes Discharge Instructions DIET: Follow Instructions for: Heart Healthy Diet Activities you can perform: Regular-No Restrictions, See Additionl Instruction Other Activity Instructions: per PT recommendations Follow up Referrals: PCP Follow-up - 1 Week Urology - 3-5 Days New Orders: BASIC METABOLIC PROF - 2-3 Days New Medications: Nitrofurantoin Monohydrate Macrocrystals (Macrobid) 100 Mg Capsule 100 MG PO BID for Infection, #8 CAP 0 Refills Nystatin Topical (Nystatin Topical) 100,000 unit/gm Cream 1 APPLIC TOPICAL BID for Infection, #15 GM 0 Refills Continued Medications: Amlodipine (Amlodipine) 5 Mg Tab 5 MG PO DAILY for Blood Pressure Management, #30 TAB 0 Refills Aspirin (Aspirin Children's) 81 Mg Chew 81 MG CHEW HS, TAB 0 Refills Benazepril (Benazepril) 10 Mg Tab 10 MG PO DAILY for Blood Pressure Management, #30 TAB 0 Refills Gabapentin (Gabapentin) 400 Mg Cap 400 CAP PO HS for NEUROPATHY, #30 CAP 0 Refills Levothyroxine (Levothyroxine) 75 Mcg Tab 75 MCG PO HS for Thyroid, #30 TAB 0 Refills Omeprazole (Omeprazole) 20 Mg Cap 20 MG PO DAILY Polyethylene Glycol 3350 Powder (Polyethylene Glycol 3350 Powder) 17 Gm Pow 17 GM PO DAILY for Constipation, #1 BOTTLE Sennosides-Docusate Sodium (Senna Plus 8.6-50 mg) 1 Tab Tab 2 TAB PO BID for Constipation, #60 TAB Trazodone (Trazodone) 50 Mg Tab 50 MG PO HS PRN for INSOMNIA, #30 TAB 0 Refills Rica Dinero MD Jul 11, 2017 18:53
== END 2017-07-11 18:34 ==
LOC: NEPC 09:48 → NEDA 14:19 → NEPHCDU 17:02
PROVIDERS: ADMIT Internal Medicine; ATTEND Internal Medicine
DX: B37.2 Candidiasis of skin and nail (principal); R53.1 Weakness; I10 Essential (primary) hypertension; N39.0 Urinary tract infection, site not specified; R33.9 Retention of urine, unspecified; Z86.73 Personal history of transient ischemic attack (TIA), and cerebral infarction without residual deficits; G80.9 Cerebral palsy, unspecified; R26.2 Difficulty in walking, not elsewhere classified; B95.2 Enterococcus as the cause of diseases classified elsewhere; Z88.2 Allergy status to sulfonamides; F41.9 Anxiety disorder, unspecified; F32.9 Major depressive disorder, single episode, unspecified; Z79.899 Other long term (current) drug therapy; R19.7 Diarrhea, unspecified; Z87.440 Personal history of urinary (tract) infections
CPT/HCPCS: 80053; 81001; 85025; 86403; 87077; 87086; 87186; 97110; 97162; 99285; G0378; G8987; G8988

== ENCOUNTER 2017-07-28 00:32 | Inpatient (IN) | payer MEDICARE, MEDICAID ==
[~2017-07-28] VITALS: Ht 170.2 cm; Wt 75.0 kg
[~2017-07-28 00:32] MED LIST changes: +MACR100C2 PO; +NYST15T TOPICAL
[2017-07-28 00:40] VITALS: BP 137/63; PULSE 82; RESP 16; TEMP 98.2; O2SAT 99
[2017-07-28] MEDS ORDERED: LINA145C PO (00:55)
--- NOTE | 2017-07-28 02:05 | PD ---
HPI Chief Complaint: Skin Problem Time Seen by Provider: 01:45 Travel History International Travel<30 days: No Contact w/Intl Traveler<30days: No Traveled to known affect area: No History of Present Illness HPI 67-year-old female complains of pain on the left big toe. Patient states that the pain started several days ago. Patient denies any injury to be left big toe. Patient has history of CP and bedridden. Patient denies any headache. Patient denies any chest pain or shortness of breath. Patient denies abdominal pain. Patient denies any nausea vomiting diarrhea. Patient denies any fever chills. Patient also has history of anxiety, depression, hypertension, status post CVA. Patient was admitted to [facility] 16 and discharge any with diagnosis of generalized weakness, rash, hypertension. Patient was advised to use nystatin topical for the rash. Patient however states that she had not using it at home. PFSH Past Medical History Arthritis: No Asthma: No Autoimmune Disease: No Blood Disorders: No Anxiety: Yes Depression: Yes Heart Rhythm Problems: No Cancer: No Cardiac Catheterization: No Cardiovascular Problems: No Cerebral Palsy: Yes High Cholesterol: No Chemotherapy: No Chest Pain: No Congestive Heart Failure: No COPD: No Cerebrovascular Accident: Yes Diabetes: No Diminished Hearing: Yes (DEAF RIGHT EAR) Endocrine: No GERD: No Glaucoma: No Genitourinary: No Headaches: No Hypertension: Yes Immune Disorder: No Implanted Vascular Access Dvce: Yes Kidney Stones: No Musculoskeletal: Yes (CEREBRAL PALSY) Neurologic: No Psychiatric: No Reproductive: No Respiratory: No Migraines: No Myocardial Infarction: No Radiation Therapy: No Renal Failure: No Seizures: No Sickle Cell Disease: No Sleep Apnea: No Thyroid Disease: Yes Ulcer: No Menopausal: Yes : 2 Para: 2 Miscarriage: 0 : 0 Past Surgical History Abdominal Surgery: No AICD: No Appendectomy: No Arteriovenous Shunt: No Cardiac Surgery: No Cholecystectomy: No Coronary Artery Bypass Graft: No Ear Surgery: No Endocrine Surgery: No Eye Surgery: No Genitourinary Surgery: Yes (BLADDER RECONSTRUCTION IN 1961) Gynecologic Surgery: No Insulin Pump: No Joint Replacement: Yes (L HIP AND L KNEE) Neurologic Surgery: No Oral Surgery: No Pacemaker: No Thoracic Surgery: No Tonsillectomy: Yes (ADENOIDECTOMY) Other Surgery: Yes (KNEE SX/BROKEN FEMUR/BLADDER) Family History Family Myocardial Infarction: Yes Social History Alcohol Use: No Tobacco Use: No Substance Use: No Allergies-Medications (Allergen,Severity, Reaction): Coded Allergies: Sulfa (Sulfonamide Antibiotics) (Unverified Allergy, Severe, 07/28/17) penicillin G (Unverified Allergy, Severe, PCN CAUSES HIVES PER H&P, 07/28) Reported Meds & Prescriptions Reported Meds & Active Scripts Active Macrobid (Nitrofurantoin Monohydrate Macrocrystals) 100 Mg Capsule 100 Mg PO BID Polyethylene Glycol 3350 Powder (Polyethylene Glycol) 17 Gm Pow 17 Gm PO DAILY Reported Linzess (Linaclotide) 145 Mcg Cap 145 Mcg PO DAILY Levothyroxine (Levothyroxine Sodium) 75 Mcg Tab 75 Mcg PO HS Gabapentin 400 Mg Cap 400 Cap PO HS Trazodone (Trazodone HCl) 50 Mg Tab 50 Mg PO HS PRN Benazepril (Benazepril HCl) 10 Mg Tab 10 Mg PO DAILY Omeprazole 20 Mg Cap 20 Mg PO DAILY Amlodipine (Amlodipine Besylate) 5 Mg Tab 5 Mg PO DAILY Review of Systems General / Constitutional: No: Fever Eyes: No: Visual changes HENT: No: Headaches Cardiovascular: No: Chest Pain or Discomfort Respiratory: No: Shortness of Breath Gastrointestinal: No: Abdominal Pain Genitourinary: No: Dysuria Musculoskeletal: No: Pain Skin: Positive Rash Neurologic: No: Weakness Psychiatric: No: Depression Endocrine: No: Polydipsia Hematologic/Lymphatic: No: Easy Bruising Physical Exam Narrative GENERAL: Thin female lying in bed in no acute distress. SKIN: Patient has diffuse rash underneath her armpits, left breast, lower abdomen and inguinal area and proximal legs. The rash has increasing heat and redness and tenderness on palpation. No induration noted. HEAD: Normocephalic. EYES: No scleral icterus. No injection or drainage. NECK: Supple, trachea midline. No JVD or lymphadenopathy. CARDIOVASCULAR: Regular rate and rhythm without murmurs, gallops, or rubs. RESPIRATORY: Breath sounds equal bilaterally. No accessory muscle use. GASTROINTESTINAL: Abdomen soft, non-tender, nondistended. MUSCULOSKELETAL: No cyanosis, or edema. Patient has redness swelling tenderness surrounding the left big toe toenail area. Toenail with typical fungal infection. BACK: Nontender without obvious deformity. No CVA tenderness. Neurologic exam: Patient's awake and alert oriented to place and person. Patient with contracture lying in bed. Minimal movement of the extremity. Data Data Last Documented VS Vital Signs Date Time Temp Pulse Resp B/P (MAP) Pulse Ox O2 Delivery O2 Flow Rate FiO2 07/28/17 00:40 98.2 82 16 137/63 (87) 99 Orders Orders Complete Blood Count With Diff (07/28/17 01:54) Comprehensive Metabolic Panel (07/28/17 01:54) Creatine Kinase (Cpk) (07/28/17 01:54) Prothrombin Time / Inr (Pt) (07/28/17 01:54) Act Partial Throm Time (Ptt) (07/28/17 01:54) Blood Culture (07/28/17 01:54) Urinalysis - C+S If Indicated (07/28/17 01:54) Thyroid Stimulating Hormone (07/28/17 01:54) Chest, Single Ap (07/28/17 01:54) Iv Access Insert/Monitor (07/28/17 01:54) Ecg Monitoring (07/28/17 01:54) Oximetry (07/28/17 01:54) Urinary Catheter Insert/Apply (07/28/17 01:54) Electrocardiogram (07/28/17 01:54) Admit Order (Ed Use Only) (07/28/17 03:27) Labs Laboratory Tests Test 07/28/17 01:45 07/28/17 01:58 Urine Color YELLOW Urine Turbidity CLEAR Urine pH 6.0 Urine Specific [place] 1.019 Urine Protein 30 mg/dL Urine Glucose (UA) NEG mg/dL Urine Ketones 10 mg/dL Urine Occult Blood NEG Urine Nitrite NEG Urine Bilirubin NEG Urine Urobilinogen LESS THAN 2.0 MG/DL Urine Leukocyte Esterase SMALL Urine RBC 2 /hpf Urine WBC 3 /hpf Urine Squamous Epithelial Cells <1 /hpf Microscopic Urinalysis Comment CULT NOT INDICATED White Blood Count 10.2 TH/MM3 Red Blood Count 3.97 MIL/MM3 Hemoglobin 11.6 GM/DL Hematocrit 35.6 % Mean Corpuscular Volume 89.7 FL Mean Corpuscular Hemoglobin 29.3 PG Mean Corpuscular Hemoglobin Concent 32.7 % Red Cell Distribution Width 13.9 % Platelet Count 264 TH/MM3 Mean Platelet Volume 7.8 FL Neutrophils (%) (Auto) 79.7 % Lymphocytes (%) (Auto) 9.6 % Monocytes (%) (Auto) 8.6 % Eosinophils (%) (Auto) 1.7 % Basophils (%) (Auto) 0.4 % Neutrophils # (Auto) 8.1 TH/MM3 Lymphocytes # (Auto) 1.0 TH/MM3 Monocytes # (Auto) 0.9 TH/MM3 Eosinophils # (Auto) 0.2 TH/MM3 Basophils # (Auto) 0.0 TH/MM3 CBC Comment DIFF FINAL Differential Comment Prothrombin Time 11.7 SEC Prothromb Time International Ratio 1.2 RATIO Activated Partial Thromboplast Time 31.8 SEC Blood Urea Nitrogen 14 MG/DL Creatinine 0.77 MG/DL Random Glucose 86 MG/DL Total Protein 7.4 GM/DL Albumin 2.3 GM/DL Calcium Level 8.4 MG/DL Alkaline Phosphatase 168 U/L Aspartate Amino Transf (AST/SGOT) 79 U/L Alanine Aminotransferase (ALT/SGPT) 66 U/L Total Bilirubin 0.9 MG/DL Sodium Level 140 MEQ/L Potassium Level 4.3 MEQ/L Chloride Level 105 MEQ/L Carbon Dioxide Level 26.0 MEQ/L Anion Gap 9 MEQ/L Estimat Glomerular Filtration Rate 75 ML/MIN Total Creatine Kinase 71 U/L Thyroid Stimulating Hormone 3rd Gen 5.280 uIU/ML MDM Medical Decision Making Medical Screen Exam Complete: Yes Emergency Medical Condition: Yes Differential Diagnosis Differential diagnosis including beatriz, cellulitis, paronychia. Narrative Course 67-year-old female with redness swelling tenderness left big toe, red rash on axilla, under the breast area lower abdomen and inguinal area and proximal legs area. Vancomycin and Azactam IV given. Patient will be admitted to the medical service. Diagnosis Primary Impression: Cellulitis Qualified Codes: L03.90 - Cellulitis, unspecified Additional Impressions: Tinea corporis Paronychia of great toe, left Admitting Information Admitting Physician Requests: Admit Noe Clifford MD Jul 28, 2017 02:05
[2017-07-28 02:11] LABS: BILIRUBIN, URINE NEG (NEG); BLOOD, URINE NEG (NEG); GLUCOSE,URINE NEG (NEG); KETONE, URINE 10 mg/dL (NEG); NITRITE,URINE NEG (NEG); SQUAMOUS EPITHELIAL CELL URINE <1 /hpf (0-5); URINE COLOR YELLOW (YELLW/STRAW); URINE LEUKOCYTE ESTERASE SMALL (NEG)
[2017-07-28 02:11] LABS: AUTOMATED NEUTROPHIL # 8.1 TH/MM3 (1.8-7.7); BASOPHIL % 0.4 % (0.0-2.0); EOSINOPHIL # 0.2 TH/MM3 (0-0.4); EOSINOPHIL % 1.7 % (0.0-4.0); HEMATOCRIT 35.6 % (35.0-46.0); HEMOGLOBIN 11.6 GM/DL (11.6-15.3); LYMPH % 9.6 % (9.0-44.0); MEAN CELL VOLUME 89.7 FL (80.0-100.0); MEAN CORPUSCULAR HEMOGLOBIN 29.3 PG (27.0-34.0); MEAN CORPUSCULAR HGB CONC 32.7 % (32.0-36.0); MEAN PLATELET VOLUME 7.8 FL (7.0-11.0); MONO % 8.6 % (0.0-8.0); MONOCYTE # 0.9 TH/MM3 (0-0.9); NEUT % 79.7 % (16.0-70.0); PLATELET COUNT 264 TH/MM3 (150-450); RED BLOOD COUNT 3.97 MIL/MM3 (4.00-5.30); RED CELL DISTRIBUTION WIDTH 13.9 % (11.6-17.2); WHITE BLOOD COUNT 10.2 TH/MM3 (4.0-11.0)
[2017-07-28 02:19] LABS: INTERNATIONAL NORMALIZED RATIO 1.2 RATIO; PROTHROMBIN TIME - PATIENT 11.7 SEC (9.8-11.6)
[2017-07-28 02:29] LABS: ALBUMIN 2.3 GM/DL (3.4-5.0); ALT (GPT) 66 U/L (10-53); AST (GOT) 79 U/L (15-37); BLOOD UREA NITROGEN 14 MG/DL (7-18); CALCIUM 8.4 MG/DL (8.5-10.1); CHLORIDE 105 MEQ/L (98-107); CREATININE 0.77 MG/DL (0.50-1.00); GLOMERULAR FILTRATION RATE 75 ML/MIN (>89); GLUCOSE,RANDOM 86 MG/DL (74-106); SODIUM (NA) 140 MEQ/L (136-145)
[2017-07-28 02:38] LABS: ALKALINE PHOSPHATASE 168 U/L (45-117); TOTAL BILIRUBIN ADULT 0.9 MG/DL (0.2-1.0); TOTAL PROTEIN 7.4 GM/DL (6.4-8.2)
--- NOTE | 2017-07-28 02:39 | RADRPT ---
EXAM DATE/TIME: 07/28/2017 02:26 [place] COMPARISON: CHEST SINGLE AP, July 07, 2016, 15:39. INDICATIONS : Shortness of breath. MEDICAL HISTORY : Hypertension. Cerebral palsy SURGICAL HISTORY : Bladder reconstruction. Left hip replacement ENCOUNTER: Initial ACUITY: 1 day PAIN SCORE: 0/10 LOCATION: Bilateral chest FINDINGS: A rotated portable AP view of the chest demonstrates a normal-sized cardiac silhouette. There are brigida cified mediastinal lymph nodes and innumerable calcified nodules bilaterally. No pleural effusion, ai rspace consolidation, or pneumothorax is identified. The bones and soft tissues demonstrate no acute finding. CONCLUSION: No acute cardiopulmonary abnormality is identified. There are persistent calcified mediastinal lymph nodes and bilateral calcified lung granulomas. Adma Mohan MD on July 28, 2017 at 2:37 Board Certified Radiologist. This report was verified electronically.
[2017-07-28] MEDS ORDERED: SODIUM CHLORIDE 0.9% FLUSH 10 ML FLUSH IV FLUSH PRN (03:30)
[2017-07-28] MEDS ORDERED: NALOXONE HCL 0.4 MG/ML AMP IV PUSH PRN (03:30)
[2017-07-28] MEDS ORDERED: ACETAMINOPHEN 325 MG TAB PO PRN (03:30)
[2017-07-28] MEDS ORDERED: Vancomycin Consult Pharmacy 1 EA OTHER SCH (03:30)
[2017-07-28] MEDS ORDERED: ONDANSETRON HCL 4 MG/2 ML VIAL IVP PRN (03:30)
[2017-07-28] MEDS: ENOXAPARIN SODIUM 40 MG/0.4 ML SYRINGE SQ SCH (04:15)
[2017-07-28] MEDS: NYSTATIN 100,000 U/GM PWD 15 GM BTL TOPICAL SCH ×3 (04:15→21:30)
[2017-07-28] MEDS: AZTREONAM INJ 1,000 MG in SODIUM CHLORIDE 0.9% INJ 100 ML IV SCH ×2 (04:15→11:21)
--- NOTE | 2017-07-28 04:22 | HHI.HP ---
HPI Service [facility] Primary Care Physician Terence Askew DO Admission Diagnosis cellulitis. Parents cheer. Tinia Corporis Diagnoses: Travel History International Travel<30 Days: No Contact w/Intl Traveler <30 Da: No Traveled to Known Affected Are: No History of Present Illness 67-year-old female with a past medical history significant for anxiety, depression, hypertension, cerebral palsy and history of CVA presents to the emergency department for evaluation of this and swelling of her right great toe. The patient has a rash with superimposed infection underneath bilateral breasts and in and above her groin and along the right axilla taking up more than 50% of the torso. She reports that the rash is sometimes painful although it is more concerned about the pain in her right great toe. She denies any systemic symptoms such as fever/chills. Denies chest pain, shortness of breath. No nausea/vomiting/diarrhea. The patient was recently discharged from the hospital on 07/11/17 she was treated for a UTI and candidal rash. Review of Systems Except as stated in HPI: all other systems reviewed are Neg Past Family Social History Past Medical History Anxiety/depression Hypertension Cerebral palsy History of CVA Past Surgical History Bladder reconstruction Left hip replacement Left knee replacement Tonsillectomy Reported Medications Reported Meds & Active Scripts Active Macrobid (Nitrofurantoin Monohydrate Macrocrystals) 100 Mg Capsule 100 Mg PO BID Polyethylene Glycol 3350 Powder (Polyethylene Glycol) 17 Gm Pow 17 Gm PO DAILY Reported Linzess (Linaclotide) 145 Mcg Cap 145 Mcg PO DAILY Levothyroxine (Levothyroxine Sodium) 75 Mcg Tab 75 Mcg PO HS Gabapentin 400 Mg Cap 400 Cap PO HS Trazodone (Trazodone HCl) 50 Mg Tab 50 Mg PO HS PRN Benazepril (Benazepril HCl) 10 Mg Tab 10 Mg PO DAILY Omeprazole 20 Mg Cap 20 Mg PO DAILY Amlodipine (Amlodipine Besylate) 5 Mg Tab 5 Mg PO DAILY Allergies: Coded Allergies: Sulfa (Sulfonamide Antibiotics) (Unverified Allergy, Severe, 07/28/17) penicillin G (Unverified Allergy, Severe, PCN CAUSES HIVES PER H&P, 07/28) Family History No family history of diabetes mellitus or coronary artery disease Social History Past history of substance abuse. Denies alcohol, tobacco and illicit drugs at this time. Physical Exam Vital Signs Vital Signs Date Time Temp Pulse Resp B/P (MAP) Pulse Ox O2 Delivery O2 Flow Rate FiO2 07/28/17 00:40 98.2 82 16 137/63 (87) 99 Physical Exam GENERAL: female lying in bed SKIN: Extremely erythematous rash with serosanguineous drainage underneath bilateral axilla, left breast, lower abdomen and inguinal area. Involving more than 50% of the torso. Rash is tender on palpation and warm to the touch. No fluctuance or induration. HEAD: Atraumatic. Normocephalic. No temporal or scalp tenderness. EYES: Pupils equal round and reactive. Extraocular motions intact. No scleral icterus. No injection or drainage. ENT: Nose without bleeding, purulent drainage or septal hematoma. Throat without erythema, tonsillar hypertrophy or exudate. Uvula midline. Airway patent. NECK: Trachea midline. No JVD or lymphadenopathy. Supple, nontender, no meningeal signs. CARDIOVASCULAR: Regular rate and rhythm without murmurs, gallops, or rubs. RESPIRATORY: Clear to auscultation. Breath sounds equal bilaterally. No wheezes , rales, or rhonchi. GASTROINTESTINAL: Abdomen soft, non-tender, nondistended. No hepato-splenomegaly , or palpable masses. No guarding. MUSCULOSKELETAL: Extremities without clubbing, cyanosis, or edema. No joint tenderness, effusion, or edema noted. No calf tenderness. Negative Homans sign bilaterally. NEUROLOGICAL: Awake and alert. Patient with contractures, lying in bed. Laboratory Laboratory Tests Test 07/28/17 01:45 07/28/17 01:58 Urine Color YELLOW Urine Turbidity CLEAR Urine pH 6.0 Urine Specific [place] 1.019 Urine Protein 30 Urine Glucose (UA) NEG Urine Ketones 10 Urine Occult Blood NEG Urine Nitrite NEG Urine Bilirubin NEG Urine Urobilinogen LESS THAN 2.0 Urine Leukocyte Esterase SMALL Urine RBC 2 Urine WBC 3 Urine Squamous Epithelial Cells <1 Microscopic Urinalysis Comment CULT NOT INDICATED White Blood Count 10.2 Red Blood Count 3.97 Hemoglobin 11.6 Hematocrit 35.6 Mean Corpuscular Volume 89.7 Mean Corpuscular Hemoglobin 29.3 Mean Corpuscular Hemoglobin Concent 32.7 Red Cell Distribution Width 13.9 Platelet Count 264 Mean Platelet Volume 7.8 Neutrophils (%) (Auto) 79.7 Lymphocytes (%) (Auto) 9.6 Monocytes (%) (Auto) 8.6 Eosinophils (%) (Auto) 1.7 Basophils (%) (Auto) 0.4 Neutrophils # (Auto) 8.1 Lymphocytes # (Auto) 1.0 Monocytes # (Auto) 0.9 Eosinophils # (Auto) 0.2 Basophils # (Auto) 0.0 CBC Comment DIFF FINAL Differential Comment Prothrombin Time 11.7 Prothromb Time International Ratio 1.2 Activated Partial Thromboplast Time 31.8 Blood Urea Nitrogen 14 Creatinine 0.77 Random Glucose 86 Total Protein 7.4 Albumin 2.3 Calcium Level 8.4 Alkaline Phosphatase 168 Aspartate Amino Transf (AST/SGOT) 79 Alanine Aminotransferase (ALT/SGPT) 66 Total Bilirubin 0.9 Sodium Level 140 Potassium Level 4.3 Chloride Level 105 Carbon Dioxide Level 26.0 Anion Gap 9 Estimat Glomerular Filtration Rate 75 Total Creatine Kinase 71 Thyroid Stimulating Hormone 3rd Gen 5.280 Date/Time Source Procedure Growth Status 07/28/17 01:55 Blood Peripheral Aerobic Blood Culture Pending Received 07/28/17 01:55 Blood Peripheral Anaerobic Blood Culture Pending Received Result Diagram: 07/28/1715707/28/17157 Caprini VTE Risk Assessment Caprini VTE Risk Assessment: Mod/High Risk (score >= 2) Caprini Risk Assessment Model Point Value = 1 Point Value = 2 Point Value = 3 Point Value = 5 Age 41-60 Minor surgery BMI > 25 kg/m2 Swollen legs Varicose veins or History of unexplained or recurrent spontaneous Oral contraceptives or hormone replacement Sepsis (< 1 month) Serious lung disease, including pneumonia (< 1 month) Abnormal pulmonary function Acute myocardial infarction Congestive heart failure (< 1 month) History of inflammatory bowel disease Medical patient at bed rest Age 61-74 Arthroscopic surgery Major open surgery (> 45 min) Laparoscopic surgery (> 45 min) Malignancy Confined to bed (> 72 hours) Immobilizing plaster cast Central venous access Age >= 75 History of VTE Family history of VTE Factor V Leiden Prothrombin [id number] Lupus anticoagulant Anticardiolipin antibodies Elevated serum homocysteine Heparin-induced thrombocytopenia Other congenital or acquired thrombophilia Stroke (< 1 month) Elective arthroplasty Hip, pelvis, or leg fracture Acute spinal cord injury (< 1 month) Prophylaxis Regimen Total Risk Factor Score Risk Level Prophylaxis Regimen 0-1 Low Early ambulation 2 Moderate Order ONE of the following: *Sequential Compression Device (SCD) *Heparin 5000 units SQ BID 3-4 Higher Order ONE of the following medications: *Heparin 5000 units SQ TID *Enoxaparin/Lovenox 40 mg SQ daily (WT < 150 kg, CrCl > 30 mL/min) *Enoxaparin/Lovenox 30 mg SQ daily (WT < 150 kg, CrCl > 10-29 mL/min) *Enoxaparin/Lovenox 30 mg SQ BID (WT < 150 kg, CrCl > 30 mL/min) AND/OR *Sequential Compression Device (SCD) 5 or more Highest Order ONE of the following medications: *Heparin 5000 units SQ TID (Preferred with Epidurals) *Enoxaparin/Lovenox 40 mg SQ daily (WT < 150 kg, CrCl > 30 mL/min) *Enoxaparin/Lovenox 30 mg SQ daily (WT < 150 kg, CrCl > 10-29 mL/min) *Enoxaparin/Lovenox 30 mg SQ BID (WT < 150 kg, CrCl > 30 mL/min) AND *Sequential Compression Device (SCD) Assessment and Plan Assessment and Plan Assessment/plan: 1. Candidal rash with superimposed bacterial infection/cellulitis Aztreonam, vancomycin, nystatin, Lotrimin Monitor for signs of sepsis 2. Transaminitis Patient with new transaminitis AST/ALT of 99/66 Hepatitis profile pending Monitor LFTs 3. Hypertension Continue home amlodipine 4. Hypothyroidism Continue home Synthroid 5. Cerebral palsy/muscle spasm/contracture Continue home gabapentin FEN Heart healthy diet Electrolytes: Monitor and replete when necessary Lovenox Case management consulted as EMS has concerns that patient is not being appropriately cared for in her home. Physician Certification 2 Midnight Certification Type: Admission for Inpatient Services Order for Inpatient Services The services are ordered in accordance with Medicare regulations or non- Medicare payer requirements, as applicable. In the case of services not specified as inpatient-only, they are appropriately provided as inpatient services in accordance with the 2-midnight benchmark. Estimated LOS (days): 2 2 days is the estimated time the patient will need to remain in the hospital, assuming treatment plan goals are met and no additional complications. Post-Hospital Plan: Not yet determined Dee Al MD Jul 28, 2017 04:22
[2017-07-28] MEDS ORDERED: VANCOMYCIN 1 GM/200 ML PREMIX IV SCH (05:00)
[2017-07-28 07:59] VITALS: BP 127/60; PULSE 69; RESP 18; TEMP 98.7; O2SAT 95
[2017-07-28] MEDS: LISINOPRIL 10 MG TAB PO SCH (08:17)
[2017-07-28] MEDS: POLYETHYLENE GLYCOL 17 GM PKG PO SCH (08:17)
[2017-07-28] MEDS: amLODIPine BESYLATE 5 MG TAB PO SCH (08:17)
[2017-07-28] MEDS: PT OWN LINZESS 145 MCG PO SCH (08:18)
[2017-07-28] MEDS: SODIUM CHLORIDE 0.9% FLUSH 10 ML FLUSH IV FLUSH SCH ×2 (08:18→21:28)
[2017-07-28] MEDS: CLOTRIMAZOLE 1% SOLN 30 ML BTL TOPICAL SCH ×2 (08:19→21:00)
--- NOTE | 2017-07-28 11:01 | EKG ---
Date Performed: 07/28/2017 Time Performed: 02:54:34 PTAGE: 67 years EKG: Sinus rhythm INTRAVENTRICULAR CONDUCTION DELAY ABNORMAL ECG PREVIOUS TRACING : 07/07/2016 14.48 DOCTOR: Leno Angulo Interpretating Date/Time 07/28/2017 10:57:39
[2017-07-28 11:48] LABS: HEPATITIS A AB IGM NEGATIVE (NEGATIVE); HEPATITIS B CORE AB IGM NEGATIVE (NEGATIVE); HEPATITIS B SURFACE ANTIGEN NEGATIVE (NEGATIVE); HEPATITIS C AB IgG NEGATIVE (NEGATIVE)
[2017-07-28 11:55] VITALS: BP 108/53; PULSE 71; RESP 19; TEMP 98.2; O2SAT 94
--- NOTE | 2017-07-28 14:29 | HHI.PR ---
Subjective Remarks awake and alert denies any pain states carmen was inserted on admission Objective Vitals Vital Signs Date Time Temp Pulse Resp B/P (MAP) Pulse Ox O2 Delivery O2 Flow Rate FiO2 07/28/17 11:55 98.2 71 19 108/53 (71) 94 07/28/17 07:59 98.7 69 18 127/60 (82) 95 07/28/17 00:40 98.2 82 16 137/63 (87) 99 I/O 07/27/17 07/27/17 07/27/17 07/28/17 07/28/17 07/28/17 07:00 15:00 23:00 07:00 15:00 23:00 Intake Total 100 ml Balance 100 ml Intake IV Total 100 ml Result Diagram: 07/28/1715707/28/17157 Imaging Last Impressions Chest X-Ray 07/28/17153 Signed Impressions: Service Date/Time: Friday, July 28, 2017 02:26 - CONCLUSION: No acute cardiopulmonary abnormality is identified. There are persistent calcified mediastinal lymph nodes and bilateral calcified lung granulomas. Adam Mohan MD Objective Remarks awake and alert, oriented x 3 speech dysarthric anicteric left chest wall/breast - marked erythema no rales regular rhythm abdomen/groin- diffuse erythema with scaling extremities no edema. left big toe- mild erythema with dry scaling moves all extremities spontaneously Urinary Catheter: Yes Assessment to: Continue Carmen insert reason: Prolonged Immobilization Date of Insertion: Jul 28, 2017 A/P Assessment and Plan 67 years old female with history of Cerebral palsy 1. Diffuse Candidal rash with superimposed bacterial infection/cellulitis involving lower abdomen/bilateral groin and left chest wall/breast Aztreonam, vancomycin, nystatin, Lotrimin Monitor for signs of sepsis ID consult for recommendation wound care team consult 2. Transaminitis Patient with new transaminitis AST/ALT of 99/66 Hepatitis profile pending Monitor LFTs 3. Hypertension Continue home amlodipine 4. Hypothyroidism Continue home Synthroid 5. Cerebral palsy/muscle spasm/contracture Continue home gabapentin 6. Left big toe cellulitis - wound care- consider Podiatry consult FEN Heart healthy diet Electrolytes: Monitor and replete when necessary Lovenox for DVT prophylaxis Case management consulted as EMS has concerns that patient is not being appropriately cared for in her home. Odalys Quiroz MD Jul 28, 2017 14:29
[2017-07-28 15:38] VITALS: BP 119/59; PULSE 68; RESP 18; TEMP 97.4; O2SAT 94
[2017-07-28] MEDS: FLUCONAZOLE 100 MG TAB PO SCH (17:01)
[2017-07-28 20:47] VITALS: BP 127/66; PULSE 71; RESP 18; TEMP 98.3; O2SAT 95
--- NOTE | 2017-07-28 21:18 | MB ---
cc: DAVIN KENNY MD DATE OF CONSULTATION: 07/28/2017 REASON FOR CONSULTATION: Cellulitis of the left chest wall/breasts, diffuse severe cellulitis, Irma bilateral groin and thigh rash. REQUESTING PHYSICIAN Dr. Quiroz. HISTORY OF PRESENT ILLNESS This is a 67-year-old white female who has history of cerebral palsy. The patient was brought to the emergency department because of swelling and erythema of the right great toe and also rash under the breasts and of the groin. The patient was in the hospital in June and she was treated for UTI due to MRSA and Enterococcus faecalis. She was also noted to have a rash at the time which was noted to be painful and was described as burning. It appears the patient was also treated recently prior to the last hospitalization at [facility] as well. The patient reportedly is wheelchair bound. The treatment given in the hospital for the UTI was Macrobid which was given for seven days on discharge and she was also treated with topical Nystatin. The patient notes that the rash which is located at the left axilla and left anterior chest wall and also at the lower abdomen, groin and proximal thighs have itching and she notes that it is also painful. She is awake and alert. She is afebrile. White blood cell count is 10.2. Blood cultures were taken today. Chest x-ray showed no acute cardiopulmonary adenopathy. Calcified mediastinal lymph nodes and bilateral calcified lung granulomas and noted on the chest x-ray. PAST MEDICAL HISTORY Cerebral palsy, hypertension, anxiety, depression, history of CVA, bladder reconstruction, left hip replacement, left knee replacement, tonsillectomy. ALLERGIES Penicillin, sulfa. MEDICATIONS: 1. Vancomycin. 2. Nystatin powder. 3. Aztreonam. 4. Neurontin. 5. Synthroid. 6. Topical Lotrimin. 7. Norvasc. 8. Prinivil. 9. MiraLax. 10. Topical Nystatin powder. 11. Lovenox. SOCIAL HISTORY No tobacco or alcohol use. No illicit drug use. The patient lives with her daughter and granddaughter. FAMILY HISTORY Noncontributory. REVIEW OF SYSTEMS Pertinent as mentioned above. Otherwise negative on 10-point review. PHYSICAL EXAMINATION She is a slender well-developed female, who is in no acute distress. She is awake, alert, oriented. Speech is fluent and clear. VITAL SIGNS: Temperature 97.4, blood pressure 119/59, respiratory rate 18, heart rate 68. HEAD, EYES, EARS, NOSE, AND THROAT: Extraocular movements grossly intact, pupils reactive to light. No icterus. Oropharynx: Moist mucosa without lesions. Neck: Supple without adenopathy. Lungs: Clear breath sounds. Heart: Regular S1-S2 without murmurs. Abdomen: Benign, soft, nontender. Rectal: Not performed. Extremities: The left great toe has erythema and a blister at the corner of the great toe nail bed at the medial aspect. Skin: Macular rash at the left axilla and extending across to the anterior chest wall at the upper aspect of the left breast. A macular erythematous confluent rash is apparent at the lower abdomen and also at the right and left groin, and proximal left and right thigh. Neuro: No gross focal findings. The patient has decreased strength of the lower extremities. Psych: The patient is calm and cooperative. LABORATORY DATA WBC 10.2, platelets 264, 79% neutrophils. Hemoglobin 11.6, creatinine 0.77, BUN 14, sodium 140, AST 79, ALT 66. Urinalysis unremarkable. IMPRESSION 1. Cellulitis of the left great toe in an area of paronychia. 2. Candidal rash/candidiasis involving the left axilla and left chest wall and also groin, and lower abdomen. 3. Probable superimposed bacterial infection in the areas with the rash. RECOMMENDATIONS 1. Continue vancomycin. 2. Discontinue aztreonam. 3. Continue Nystatin topical for the candidal rash and also add fluconazole. 4. Monitor blood cultures. 5. Monitor response to the antibiotic treatment and antifungal treatment. Thank you for this consultation. I will follow the patient's progress with you and will make further recommendations on followup. Davin Kenny MD FD/LANA /4:22 PM /8:59 PM
[2017-07-28] MEDS: LEVOTHYROXINE SODIUM 75 MCG TAB PO SCH (21:27)
[2017-07-28] MEDS: GABAPENTIN 400 MG CAP PO SCH (21:27)
[2017-07-28] MEDS: traZODone HCL 50 MG TAB PO PRN (21:29)
[2017-07-29 00:43] VITALS: BP 108/59; PULSE 66; RESP 18; TEMP 98.1; O2SAT 95
[2017-07-29] MEDS: VANCOMYCIN 1 GM/200 ML PREMIX IV SCH ×2 (01:56→16:19)
[2017-07-29 04:54] VITALS: BP 109/58; PULSE 66; RESP 18; TEMP 98.3; O2SAT 96
[2017-07-29] MEDS: ENOXAPARIN SODIUM 40 MG/0.4 ML SYRINGE SQ SCH (05:55)
[2017-07-29] MEDS: NYSTATIN 100,000 U/GM PWD 15 GM BTL TOPICAL SCH ×3 (05:57→21:23)
[2017-07-29 07:39] LABS: AUTOMATED NEUTROPHIL # 3.7 TH/MM3 (1.8-7.7); BASOPHIL % 0.6 % (0.0-2.0); EOSINOPHIL # 0.3 TH/MM3 (0-0.4); EOSINOPHIL % 5.1 % (0.0-4.0); HEMATOCRIT 29.9 % (35.0-46.0); HEMOGLOBIN 9.9 GM/DL (11.6-15.3); LYMPH % 20.9 % (9.0-44.0); LYMPHOCYTE # 1.2 TH/MM3 (1.0-4.8); MEAN CELL VOLUME 89.3 FL (80.0-100.0); MEAN CORPUSCULAR HEMOGLOBIN 29.6 PG (27.0-34.0); MEAN CORPUSCULAR HGB CONC 33.2 % (32.0-36.0); MEAN PLATELET VOLUME 7.2 FL (7.0-11.0); MONO % 9.1 % (0.0-8.0); MONOCYTE # 0.5 TH/MM3 (0-0.9); NEUT % 64.3 % (16.0-70.0); PLATELET COUNT 251 TH/MM3 (150-450); RED BLOOD COUNT 3.35 MIL/MM3 (4.00-5.30); WHITE BLOOD COUNT 5.7 TH/MM3 (4.0-11.0)
[2017-07-29 07:46] LABS: ALBUMIN 1.7 GM/DL (3.4-5.0); AST (GOT) 17 U/L (15-37); BLOOD UREA NITROGEN 10 MG/DL (7-18); CALCIUM 8.1 MG/DL (8.5-10.1); CHLORIDE 112 MEQ/L (98-107); CREATININE 0.65 MG/DL (0.50-1.00); GLOMERULAR FILTRATION RATE 91 ML/MIN (>89); GLUCOSE,RANDOM 77 MG/DL (74-106); SODIUM (NA) 144 MEQ/L (136-145)
[2017-07-29 07:47] LABS: ALT (GPT) 32 U/L (10-53)
[2017-07-29 07:49] LABS: ALKALINE PHOSPHATASE 108 U/L (45-117); TOTAL BILIRUBIN ADULT 0.2 MG/DL (0.2-1.0); TOTAL PROTEIN 5.7 GM/DL (6.4-8.2)
[2017-07-29 08:18] VITALS: BP 126/59; PULSE 62; RESP 18; TEMP 98.5; O2SAT 95
[2017-07-29] MEDS: PT OWN LINZESS 145 MCG PO SCH (08:49)
[2017-07-29] MEDS: SODIUM CHLORIDE 0.9% FLUSH 10 ML FLUSH IV FLUSH SCH ×2 (08:49→21:00)
[2017-07-29] MEDS: amLODIPine BESYLATE 5 MG TAB PO SCH (08:50)
[2017-07-29] MEDS: LISINOPRIL 10 MG TAB PO SCH (08:50)
[2017-07-29] MEDS: FLUCONAZOLE 100 MG TAB PO SCH (08:50)
[2017-07-29] MEDS: CLOTRIMAZOLE 1% SOLN 30 ML BTL TOPICAL SCH ×2 (08:50→21:23)
[2017-07-29] MEDS: POLYETHYLENE GLYCOL 17 GM PKG PO SCH (08:51)
--- NOTE | 2017-07-29 11:07 | HHI.PR ---
Subjective Remarks no complains Objective Vitals Vital Signs Date Time Temp Pulse Resp B/P (MAP) Pulse Ox O2 Delivery O2 Flow Rate FiO2 07/29/17 08:18 98.5 62 18 126/59 (81) 95 07/29/17 04:54 98.3 66 18 109/58 (75) 96 07/29/17 00:43 98.1 66 18 108/59 (75) 95 07/28/17 20:47 98.3 71 18 127/66 (86) 95 07/28/17 15:38 97.4 68 18 119/59 (79) 94 07/28/17 11:55 98.2 71 19 108/53 (71) 94 I/O 07/28/17 07/28/17 07/28/17 07/29/17 07/29/17 07/29/17 07:00 15:00 23:00 07:00 15:00 23:00 Intake Total 100 ml 460 ml 200 ml Output Total 600 ml 400 ml Balance 100 ml -140 ml -200 ml Intake Oral 360 ml IV Total 100 ml 100 ml 200 ml Output Urine Total 600 ml 400 ml Result Diagram: 07/29/17 0645 07/29/17 0645 Imaging Last Impressions Chest X-Ray 07/28/17 0154 Signed Impressions: Service Date/Time: Friday, July 28, 2017 02:26 - CONCLUSION: No acute cardiopulmonary abnormality is identified. There are persistent calcified mediastinal lymph nodes and bilateral calcified lung granulomas. Adam Mohan MD Objective Remarks awake and alert, oriented x 3 speech dysarthric anicteric left chest wall/breast - marked erythema no rales regular rhythm abdomen/groin- diffuse erythema with scaling extremities no edema. left big toe- mild erythema with dry scaling moves all extremities spontaneously Urinary Catheter: Yes Assessment to: Continue Roa insert reason: Prolonged Immobilization Date of Insertion: Jul 28, 2017 A/P Assessment and Plan 67 years old female with history of Cerebral palsy Diffuse Candidal rash with superimposed bacterial infection/cellulitis involving lower abdomen/bilateral groin and left chest wall/breast Left big toe cellulitis/paronychia - wound care- consider Podiatry consult On vancomycin, nystatin, Lotrimin Monitor for signs of sepsis Dr. Garzon ff wound care team consulted Transaminitis- trended down Patient with new transaminitis AST/ALT of 99/66 Hepatitis profile pending Monitor LFTs Hypertension Continue home amlodipine and Lisinopril - will try monotherapy Hypothyroidism Continue home Synthroid Cerebral palsy/muscle spasm/contracture Continue home gabapentin PT/OT eval FEN Heart healthy diet Electrolytes: Monitor and replete when necessary Lovenox for DVT prophylaxis Case management consulted as EMS has concerns that patient is not being appropriately cared for in her home. Odalys Quiroz MD Jul 29, 2017 11:07
[2017-07-29 12:52] VITALS: BP 105/59; PULSE 63; RESP 18; TEMP 98.4; O2SAT 98
[2017-07-29 16:21] VITALS: BP 144/68; PULSE 60; RESP 20; TEMP 97.9; O2SAT 99
--- NOTE | 2017-07-29 16:53 | PD.WCN.NOT ---
Wound Consult Description: Consult for bilateral groin, left chest wall, breast per Dr Quiroz Communicated with: SANDRA Villar Recommendation: Continue with Nystatin powder for rash as ordered. Additional Information: Patient not seen for rash that has been seen by physician with orders in place for Nystatin that is appropriate. Yanci Hleler [facility] Jul 29, 2017 16:53
[2017-07-29 20:00] VITALS: BP 124/57; PULSE 68; RESP 18; TEMP 97.4; O2SAT 99
[2017-07-29] MEDS: LEVOTHYROXINE SODIUM 75 MCG TAB PO SCH (21:08)
[2017-07-29] MEDS: GABAPENTIN 400 MG CAP PO SCH (21:08)
[2017-07-29] MEDS: traZODone HCL 50 MG TAB PO PRN (21:09)
[2017-07-30] VITALS: BP 145/69; PULSE 63; RESP 18; TEMP 97; O2SAT 98
[2017-07-30] MEDS ORDERED: diphenhydrAMINE HCL 25 MG CAP PO PRN (00:30)
[2017-07-30] MEDS: ENOXAPARIN SODIUM 40 MG/0.4 ML SYRINGE SQ SCH (03:25)
[2017-07-30 03:31] VITALS: BP_SYST 139; BP_SYST 151; BP_DIAS 70; BP_DIAS 74; PULSE 59; RESP 20; TEMP 97.1; O2SAT 98
[2017-07-30] MEDS: NYSTATIN 100,000 U/GM PWD 15 GM BTL TOPICAL SCH ×3 (06:30→22:27)
[2017-07-30] MEDS: PT OWN LINZESS 145 MCG PO SCH (07:23)
[2017-07-30] MEDS: SODIUM CHLORIDE 0.9% FLUSH 10 ML FLUSH IV FLUSH SCH ×2 (07:29→22:23)
[2017-07-30] MEDS: FLUCONAZOLE 100 MG TAB PO SCH (07:29)
[2017-07-30] MEDS: LISINOPRIL 10 MG TAB PO SCH (07:30)
[2017-07-30] MEDS: CLOTRIMAZOLE 1% SOLN 30 ML BTL TOPICAL SCH ×2 (07:32→22:28)
[2017-07-30] MEDS: POLYETHYLENE GLYCOL 17 GM PKG PO SCH (07:32)
[2017-07-30 08:21] VITALS: BP 137/65; PULSE 62; RESP 17; TEMP 97.8; O2SAT 95
--- NOTE | 2017-07-30 08:45 | HHI.PR ---
Subjective Remarks afebrile no pain complains states baseline up with a walker Objective Vitals Vital Signs Date Time Temp Pulse Resp B/P (MAP) Pulse Ox O2 Delivery O2 Flow Rate FiO2 07/30/17 08:21 97.8 62 17 137/65 (89) 95 07/30/17 03:31 97.1 59 20 139/70 (93) 98 07/30/17 00:00 97.0 63 18 145/69 (94) 98 07/29/17 20:00 97.4 68 18 124/57 (79) 99 07/29/17 16:21 97.9 60 20 144/68 (93) 99 07/29/17 12:52 98.4 63 18 105/59 (74) 98 I/O 07/29/17 07/29/17 07/29/17 07/30/17 07/30/17 07/30/17 07:00 15:00 23:00 07:00 15:00 23:00 Intake Total 200 ml 720 ml Output Total 400 ml 800 ml 650 ml Balance -200 ml -80 ml -650 ml Intake Oral 720 ml IV Total 200 ml Output Urine Total 400 ml 800 ml 650 ml # Bowel Movements 0 Result Diagram: 07/29/17 0645 07/29/17 0645 Imaging Last Impressions Chest X-Ray 07/28/17 0154 Signed Impressions: Service Date/Time: Friday, July 28, 2017 02:26 - CONCLUSION: No acute cardiopulmonary abnormality is identified. There are persistent calcified mediastinal lymph nodes and bilateral calcified lung granulomas. Adam Mohan MD Objective Remarks awake and alert, oriented x 3 speech dysarthric anicteric left chest wall/breast - erythema- improving, dry scaling no rales regular rhythm abdomen/groin- diffuse erythema, dry with some skin peeling off extremities no edema. left big toe- + erythema, loose toenail hand- right thumb- thenar eminence- _ area of erythema moves all extremities spontaneously Urinary Catheter: Yes Assessment to: Continue Roa insert reason: Prolonged Immobilization Date of Insertion: Jul 28, 2017 A/P Assessment and Plan 67 years old female with history of Cerebral palsy Diffuse Candidal rash with superimposed bacterial infection/cellulitis involving lower abdomen/bilateral groin and left chest wall/breast right thenar eminence- cellulitis -On vancomycin, nystatin, Lotrimin - Monitor for signs of sepsis - Dr. Garzon ff Big toe cellulitis- with loose nail - Podiatry consult Transaminitis- trended down Patient with new transaminitis AST/ALT of 99/66 Hepatitis profile pending Monitor LFTs Hypertension -at home - on amlodipine and Lisinopril - will try monotherapy - monitor on Lisinopril alone and adjust Hypothyroidism Continue home Synthroid Cerebral palsy/muscle spasm/contracture Continue home gabapentin PT/OT eval FEN Heart healthy diet Electrolytes: Monitor and replete when necessary Lovenox for DVT prophylaxis Case management consulted as EMS has concerns that patient is not being appropriately cared for in her home. Odalys Quiroz MD Jul 30, 2017 08:45
[2017-07-30] MEDS: BACITRACIN TOP OINT 15 GM TUBE TOPICAL SCH ×3 (09:23→22:28)
[2017-07-30] MEDS ORDERED: PHARMACY ORDERED LAB ONE (11:45)
[2017-07-30] MEDS: VANCOMYCIN 1 GM/200 ML PREMIX IV SCH (12:04)
[2017-07-30 12:18] VITALS: BP 131/63; PULSE 60; RESP 18; TEMP 97.8; O2SAT 98
--- NOTE | 2017-07-30 16:28 | HHI.IDPN ---
Note Infectious Disease Note Patient feels tired. Says she did not get sleep last night because she was awakened for vitals and meds. Afebrile. Had itching last night. 67-year-old white female who has history of cerebral palsy. The patient was brought to the emergency department because of swelling and erythema of the right great toe and also rash under the breasts and of the groin. The patient was in the hospital in June and she was treated for UTI due to MRSA and Enterococcus faecalis. PAST MEDICAL HISTORY Cerebral palsy, hypertension, anxiety, depression, history of CVA, bladder reconstruction, left hip replacement, left knee replacement, tonsillectomy. ALLERGIES Penicillin, sulfa. MEDICATIONS: 1. Vancomycin. 2. Aztreonam. 3. Topical Lotrimin. 4. Topical Nystatin powder. OBJECTIVE: Vital Signs Date Time Temp Pulse Resp B/P (MAP) Pulse Ox O2 Delivery O2 Flow Rate FiO2 07/30/17 12:18 97.8 60 18 131/63 (85) 98 07/30/17 08:21 97.8 62 17 137/65 (89) 95 07/30/17 03:31 97.1 59 20 139/70 (93) 98 07/30/17 00:00 97.0 63 18 145/69 (94) 98 07/29/17 20:00 97.4 68 18 124/57 (79) 99 Laboratory Tests Test 07/29/17 06:45 White Blood Count 5.7 TH/MM3 Red Blood Count 3.35 MIL/MM3 Hemoglobin 9.9 GM/DL Hematocrit 29.9 % Mean Corpuscular Volume 89.3 FL Mean Corpuscular Hemoglobin 29.6 PG Mean Corpuscular Hemoglobin Concent 33.2 % Red Cell Distribution Width 14.0 % Platelet Count 251 TH/MM3 Mean Platelet Volume 7.2 FL Neutrophils (%) (Auto) 64.3 % Lymphocytes (%) (Auto) 20.9 % Monocytes (%) (Auto) 9.1 % Eosinophils (%) (Auto) 5.1 % Basophils (%) (Auto) 0.6 % Neutrophils # (Auto) 3.7 TH/MM3 Lymphocytes # (Auto) 1.2 TH/MM3 Monocytes # (Auto) 0.5 TH/MM3 Eosinophils # (Auto) 0.3 TH/MM3 Basophils # (Auto) 0.0 TH/MM3 CBC Comment DIFF FINAL Differential Comment Laboratory Tests Test 07/29/17 06:45 Blood Urea Nitrogen 10 MG/DL Creatinine 0.65 MG/DL Random Glucose 77 MG/DL Total Protein 5.7 GM/DL Albumin 1.7 GM/DL Calcium Level 8.1 MG/DL Alkaline Phosphatase 108 U/L Aspartate Amino Transf (AST/SGOT) 17 U/L Alanine Aminotransferase (ALT/SGPT) 32 U/L Total Bilirubin 0.2 MG/DL Sodium Level 144 MEQ/L Potassium Level 3.8 MEQ/L Chloride Level 112 MEQ/L Carbon Dioxide Level 27.0 MEQ/L Anion Gap 5 MEQ/L Estimat Glomerular Filtration Rate 91 ML/MIN Microbiology Date/Time Source Procedure Growth Status 07/28/17 01:55 Blood Peripheral Aerobic Blood Culture - Preliminary NO GROWTH IN 2 DAYS Resulted 07/28/17 01:55 Blood Peripheral Anaerobic Blood Culture - Preliminary NO GROWTH IN 2 DAYS Resulted 07/28/17 01:50 Blood Peripheral Aerobic Blood Culture - Preliminary NO GROWTH IN 2 DAYS Resulted 07/28/17 01:50 Blood Peripheral Anaerobic Blood Culture - Preliminary NO GROWTH IN 2 DAYS Resulted IMAGING: Chest X-Ray 07/28/17 0154 Signed Impressions: Service Date/Time: Friday, July 28, 2017 02:26 - CONCLUSION: No acute cardiopulmonary abnormality is identified. There are persistent calcified mediastinal lymph nodes and bilateral calcified lung granulomas. Adam Mohan MD PHYSICAL EXAMINATION GEN: No acute distress. Awake, alert, oriented. Speech is fluent and clear. HEAD, EYES, EARS, NOSE, AND THROAT: Extraocular movements grossly intact, pupils reactive to light. No icterus. Oropharynx: Moist mucosa without lesions. Neck: Supple without adenopathy. Lungs: Clear breath sounds. Heart: Regular S1-S2 without murmurs. Abdomen: Benign, soft, nontender. Extremities: The left great toe erythema has decreased. Skin: Macular rash at the left axilla and extending across to the anterior chest wall at the upper aspect of the left breast is fading. Macular erythematous confluent rash at the lower abdomen and also at the right and left groin, and proximal left and right thigh is fading. Neuro: No gross focal findings. The patient has decreased strength of the lower extremities. Psych: The patient is calm and cooperative. IMPRESSION 1. Cellulitis of the left great toe in an area of paronychia. Improving. 2. Candidal rash/candidiasis involving the left axilla and left chest wall and also groin, and lower abdomen. Improving. 3. Probable superimposed bacterial infection in the areas with the rash. RECOMMENDATIONS 1. Continue vancomycin today. 2. Start Doxycycline today. 3. Continue Nystatin topical and fluconazole for candidal rash. Can discharge tomorrow on Doxycycline and topical nystatin and fluconazole PO x 10 days Jac Garzon MD Jul 30, 2017 16:28
[2017-07-30 16:48] VITALS: BP 141/67; PULSE 64; RESP 17; TEMP 97.4; O2SAT 98
[2017-07-30 20:00] VITALS: BP 132/61; PULSE 67; RESP 18; TEMP 98.1; O2SAT 97
[2017-07-30] MEDS: LEVOTHYROXINE SODIUM 75 MCG TAB PO SCH (22:22)
[2017-07-30] MEDS: GABAPENTIN 400 MG CAP PO SCH (22:22)
[2017-07-30] MEDS: DOXYCYCLINE HYCLATE 100 MG CAP PO SCH (22:22)
[2017-07-30] MEDS: traZODone HCL 50 MG TAB PO PRN (22:23)
[2017-07-31] VITALS: BP 127/58; PULSE 63; RESP 18; TEMP 97.3; O2SAT 99
[2017-07-31 04:27] VITALS: BP 128/62; PULSE 56; RESP 20; TEMP 98.9; O2SAT 95
[2017-07-31] MEDS: ENOXAPARIN SODIUM 40 MG/0.4 ML SYRINGE SQ SCH (04:36)
[2017-07-31] MEDS: BACITRACIN TOP OINT 15 GM TUBE TOPICAL SCH ×3 (05:59→20:29)
[2017-07-31] MEDS: VANCOMYCIN 1 GM/200 ML PREMIX IV SCH (05:59)
[2017-07-31] MEDS: NYSTATIN 100,000 U/GM PWD 15 GM BTL TOPICAL SCH ×3 (06:00→20:30)
[2017-07-31 08:00] VITALS: BP 154/70; PULSE 57; RESP 18; TEMP 98.1; O2SAT 97
[2017-07-31 08:43] LABS: CREATININE 0.69 MG/DL (0.50-1.00)
[2017-07-31] MEDS: PT OWN LINZESS 145 MCG PO SCH (09:00)
[2017-07-31] MEDS: DOXYCYCLINE HYCLATE 100 MG CAP PO SCH ×2 (09:15→20:28)
[2017-07-31] MEDS: LISINOPRIL 10 MG TAB PO SCH (09:16)
[2017-07-31] MEDS: POLYETHYLENE GLYCOL 17 GM PKG PO SCH (09:16)
[2017-07-31] MEDS: FLUCONAZOLE 100 MG TAB PO SCH (09:16)
[2017-07-31] MEDS: SODIUM CHLORIDE 0.9% FLUSH 10 ML FLUSH IV FLUSH SCH ×2 (09:16→20:28)
[2017-07-31] MEDS: CLOTRIMAZOLE 1% SOLN 30 ML BTL TOPICAL SCH ×2 (09:17→20:30)
--- NOTE | 2017-07-31 10:41 | HHI.PR ---
Subjective Remarks complains of pain on left big toe site when dressing removed no itching left big toe pain improve very motiated with incrase ambulation- did well with a walker Objective Vitals Vital Signs Date Time Temp Pulse Resp B/P (MAP) Pulse Ox O2 Delivery O2 Flow Rate FiO2 07/31/17 08:00 98.1 57 18 154/70 (98) 97 07/31/17 04:27 98.9 56 20 128/62 (84) 95 07/31/17 00:00 97.3 63 18 127/58 (81) 99 07/30/17 20:00 98.1 67 18 132/61 (84) 97 07/30/17 16:48 97.4 64 17 141/67 (91) 98 07/30/17 12:18 97.8 60 18 131/63 (85) 98 I/O 07/30/17 07/30/17 07/30/17 07/31/17 07/31/17 07/31/17 07:00 15:00 23:00 07:00 15:00 23:00 Intake Total 960 ml Output Total 650 ml 1600 ml Balance -650 ml 960 ml -1600 ml Intake Oral 960 ml Output Urine Total 650 ml 1600 ml Result Diagram: 07/29/17 0645 07/31/17 0730 Imaging Last Impressions Chest X-Ray 07/28/17 0154 Signed Impressions: Service Date/Time: Friday, July 28, 2017 02:26 - CONCLUSION: No acute cardiopulmonary abnormality is identified. There are persistent calcified mediastinal lymph nodes and bilateral calcified lung granulomas. Adam Mohan MD Objective Remarks awake and alert, oriented x 3 speech dysarthric anicteric left chest wall/breast - erythema- improving, dry scaling no rales regular rhythm abdomen/groin- diffuse erythema, dry with some skin peeling off left big toe- mild erythema- improved, loose toenail hand- right thumb- thenar eminence- area of erythema- improved, dry moves all extremities spontaneously Urinary Catheter: Yes Assessment to: Continue Roa insert reason: Prolonged Immobilization Date of Insertion: Jul 28, 2017 A/P Assessment and Plan 67 years old female with history of Cerebral palsy Diffuse Candidal rash with superimposed bacterial infection/cellulitis involving lower abdomen/bilateral groin and left chest wall/breast right thenar eminence- cellulitis -On vancomycin- nystatin, Lotrimin - started on Doxyccyline 100 mg po id x 10 days/Diflucan for 10 days - Monitor for signs of sepsis - Dr. Garzon ff Left big toe mild cellulitis with loose toenail - podiatry consulted - Prn pain meds Transaminitis- trended down Patient with new transaminitis AST/ALT of 99/66 Hepatitis profile unremarkable Monitor LFTs Hypertension -at home - on amlodipine and Lisinopril - will try monotherapy - monitor on Lisinopril alone and adjust Hypothyroidism Continue home Synthroid Cerebral palsy/muscle spasm/contracture Continue home gabapentin PT/OT eval FEN Heart healthy diet Electrolytes: Monitor and replete when necessary Lovenox for DVT prophylaxis Case management consulted - [facility]- [facility] Odalys Quiroz MD Jul 31, 2017 10:41
[2017-07-31] MEDS ORDERED: DOXY100C PO (11:10)
[2017-07-31] MEDS ORDERED: DIFL100T PO (11:10)
[2017-07-31] MEDS ORDERED: Nystatin Powder TOPICAL (11:13)
[2017-07-31 12:00] VITALS: BP 126/60; PULSE 65; RESP 18; TEMP 98; O2SAT 99
[2017-07-31] MEDS ORDERED: LIDOCAINE HCL 1% 30 ML VIAL OTHER PRN (13:15)
[2017-07-31 16:00] VITALS: BP 131/66; PULSE 62; RESP 18; TEMP 98.1; O2SAT 94
[2017-07-31] MEDS: LEVOTHYROXINE SODIUM 75 MCG TAB PO SCH (20:27)
[2017-07-31] MEDS: GABAPENTIN 400 MG CAP PO SCH (20:27)
[2017-07-31] MEDS: traZODone HCL 50 MG TAB PO PRN (20:27)
[2017-07-31 20:40] VITALS: BP 131/62; PULSE 67; RESP 20; TEMP 97.5; O2SAT 97
[2017-08-01] MEDS: VANCOMYCIN 1 GM/200 ML PREMIX IV SCH (00:15)
[2017-08-01 00:20] VITALS: BP 128/68; PULSE 66; RESP 20; TEMP 98.4; O2SAT 97
[2017-08-01 04:00] VITALS: BP 122/66; PULSE 60; RESP 19; TEMP 97.9; O2SAT 96
[2017-08-01] MEDS: BACITRACIN TOP OINT 15 GM TUBE TOPICAL SCH ×2 (05:14→15:08)
[2017-08-01] MEDS: ENOXAPARIN SODIUM 40 MG/0.4 ML SYRINGE SQ SCH (05:15)
[2017-08-01] MEDS: NYSTATIN 100,000 U/GM PWD 15 GM BTL TOPICAL SCH ×2 (05:15→15:09)
[2017-08-01 08:00] VITALS: BP 144/57; PULSE 62; RESP 18; TEMP 98.9; O2SAT 98
[2017-08-01] MEDS: DOXYCYCLINE HYCLATE 100 MG CAP PO SCH (08:40)
[2017-08-01] MEDS: LISINOPRIL 10 MG TAB PO SCH (08:41)
[2017-08-01] MEDS: FLUCONAZOLE 100 MG TAB PO SCH (08:41)
[2017-08-01] MEDS: POLYETHYLENE GLYCOL 17 GM PKG PO SCH (08:41)
[2017-08-01] MEDS: SODIUM CHLORIDE 0.9% FLUSH 10 ML FLUSH IV FLUSH SCH (08:42)
[2017-08-01] MEDS: CLOTRIMAZOLE 1% SOLN 30 ML BTL TOPICAL SCH (08:42)
[2017-08-01] MEDS: PT OWN LINZESS 145 MCG PO SCH (09:00)
--- NOTE | 2017-08-01 09:40 | HHI.DS ---
Discharge Summary Admission Date Jul 28, 2017 at 03:29 Discharge Date: Aug 01, 2017 Admitting Diagnosis cellulitis. Parents cheer. Tinia Corporis (1) Irma infection ICD Code: B37.9 - Candidiasis, unspecified Diagnosis: Principal Status: Acute (2) S/P nail removal left big toe- ff up Diagnosis: Principal (3) HTN (hypertension) ICD Code: I10 - Essential (primary) hypertension Diagnosis: Secondary Status: Acute (4) Elevated LFTs ICD Code: R79.89 - Other specified abnormal findings of blood chemistry Diagnosis: Secondary Procedures left big toe nail removal 07/31 Brief History - From Admission 67-year-old female with a past medical history significant for anxiety, depression, hypertension, cerebral palsy and history of CVA presents to the emergency department for evaluation of this and swelling of her right great toe. The patient has a rash with superimposed infection underneath bilateral breasts and in and above her groin and along the right axilla taking up more than 50% of the torso. She reports that the rash is sometimes painful although it is more concerned about the pain in her right great toe. She denies any systemic symptoms such as fever/chills. Denies chest pain, shortness of breath. No nausea/vomiting/diarrhea. The patient was recently discharged from the hospital on 07/11/17 she was treated for a UTI and candidal rash. CBC/BMP: 07/29/17 0645 07/31/17 0730 Significant Findings Laboratory Tests Test 07/30/17 11:53 07/31/17 07:30 Vancomycin Level Trough 12.1 MCG/ML (5.0-10.0) Estimat Glomerular Filtration Rate 85 ML/MIN (>89) Imaging Last Impressions Chest X-Ray 07/28/17 0154 Signed Impressions: Service Date/Time: Friday, July 28, 2017 02:26 - CONCLUSION: No acute cardiopulmonary abnormality is identified. There are persistent calcified mediastinal lymph nodes and bilateral calcified lung granulomas. Adam Mohan MD PE at Discharge awake and alert, oriented x 3 speech dysarthric anicteric left chest wall/breast - erythema- improving, dry scaling no rales regular rhythm abdomen/groin- diffuse erythema, dry with some skin peeling off left big toe- mild erythema- improved, S/P nail removal 07/31 hand- right thumb- thenar eminence- area of erythema- improved, dry moves all extremities spontaneously Pt update on day of discharge awake and alert, no complains of pain oriented x 3 Hospital Course 67 years old female with history of Cerebral palsy Diffuse Candidal rash with superimposed bacterial infection/cellulitis involving lower abdomen/bilateral groin and left chest wall/breast right thenar eminence- cellulitis -On vancomycin- nystatin, Lotrimin - started on Doxyccyline 100 mg po id x 10 days/Diflucan for 10 days - continue to monitor area closely - keep dry S/P toenail removal -Big toe , mild cellultis - Podiatry consulted- per staff was seen last evening - on doxyceycline for above Transaminitis- trended down - improved Hepatitis profile unremarkable Monitor LFTs as OP Hypertension -at home - on amlodipine and Lisinopril - will try monotherapy - monitor on Lisinopril alone and adjust - good readings Hypothyroidism Continue home Synthroid Cerebral palsy/muscle spasm/contracture Continue home gabapentin PT/OT eval FEN Heart healthy diet Electrolytes: Monitor and replete when necessary Lovenox for DVT prophylaxis Case management consulted - [facility] Pt Condition on Discharge: Stable Discharge Disposition: Discharge to SNF Discharge Time: > 30 minutes Discharge Instructions DIET: Follow Instructions for: Heart Healthy Diet Speech Therapy-Diet Recommends: Regular Activities you can perform: Weight Bearing as Chastity Other Activity Instructions: consider removing carmen in 1-2 days Adaptic dressing 4 x 4 on left big toe- change daily with cling Follow up Referrals: PCP Follow-up - 2-3 Days with [facility] - 1 Week with Marisol Ji DPM New Medications: Doxycycline Hyclate (Doxycycline Hyclate) 100 Mg Cap 100 MG PO BID for Infection for 9 Days, #18 CAP Fluconazole (Diflucan) 100 Mg Tab 100 MG PO DAILY for tinea for 9 Days, #9 TAB [Nystatin Powder] () 15 APPLIC/15 GM POWD 1 APPLIC TOPICAL Q8HR for tinea for 10 Days Continued Medications: Benazepril (Benazepril) 10 Mg Tab 10 MG PO DAILY for Blood Pressure Management, #30 TAB 0 Refills Gabapentin (Gabapentin) 400 Mg Cap 400 CAP PO HS for NEUROPATHY, #30 CAP 0 Refills Levothyroxine (Levothyroxine) 75 Mcg Tab 75 MCG PO HS for Thyroid, #30 TAB 0 Refills Linaclotide (Linzess) 145 Mcg Cap 145 MCG PO DAILY, CAP 0 Refills Omeprazole (Omeprazole) 20 Mg Cap 20 MG PO DAILY Polyethylene Glycol 3350 Powder (Polyethylene Glycol 3350 Powder) 17 Gm Pow 17 GM PO DAILY for Constipation, #1 BOTTLE Trazodone (Trazodone) 50 Mg Tab 50 MG PO HS PRN for INSOMNIA, #30 TAB 0 Refills Discontinued Medications: Nitrofurantoin Monohydrate Macrocrystals (Macrobid) 100 Mg Capsule 100 MG PO BID for Infection, #8 CAP 0 Refills Odalys Quiroz MD Aug 01, 2017 09:39
--- NOTE | 2017-08-01 10:04 | HHI.PR ---
Subjective Remarks afebrile awake and alert no toe pain complains good po + flatus Objective Vitals Vital Signs Date Time Temp Pulse Resp B/P (MAP) Pulse Ox O2 Delivery O2 Flow Rate FiO2 08/01/17 08:00 98.9 62 18 144/57 (86) 98 08/01/17 04:00 97.9 60 19 122/66 (84) 96 08/01/17 00:20 98.4 66 20 128/68 (88) 97 07/31/17 20:40 97.5 67 20 131/62 (85) 97 07/31/17 16:00 98.1 62 18 131/66 (87) 94 07/31/17 12:00 98.0 65 18 126/60 (82) 99 I/O 07/31/17 07/31/17 07/31/17 08/01/17 08/01/17 08/01/17 07:00 15:00 23:00 07:00 15:00 23:00 Intake Total 800 ml 800 ml Output Total 1600 ml 400 ml 900 ml Balance -1600 ml 400 ml -100 ml Intake Oral 800 ml 800 ml Output Urine Total 1600 ml 400 ml 900 ml # Bowel Movements 0 0 Result Diagram: 07/29/17 0645 07/31/17 0730 Imaging Last Impressions Chest X-Ray 07/28/17 0154 Signed Impressions: Service Date/Time: Friday, July 28, 2017 02:26 - CONCLUSION: No acute cardiopulmonary abnormality is identified. There are persistent calcified mediastinal lymph nodes and bilateral calcified lung granulomas. Adam Mohan MD Objective Remarks awake and alert, oriented x 3 speech dysarthric anicteric left chest wall/breast - erythema- improving, dry scaling no rales regular rhythm abdomen/groin- diffuse erythema, dry with some skin peeling off left big toe- mild erythema- improved, S/P nail removal 07/31 hand- right thumb- thenar eminence- area of erythema- improved, dry moves all extremities spontaneously Procedures left big toe nail removal 07/31 Date of Insertion: Jul 28, 2017 A/P Assessment and Plan 67 years old female with history of Cerebral palsy Diffuse Candidal rash with superimposed bacterial infection/cellulitis involving lower abdomen/bilateral groin and left chest wall/breast right thenar eminence- cellulitis - nystatin, Lotrimin - on Doxyccyline 100 mg po id x 10 days/Diflucan for 10 days - Monitor for signs of sepsis - Dr. Garzon ff S/P left big toe nail removal big toe mild cellulitis with loose toenail - on doxycline for above - Prn pain meds Transaminitis- trended down Patient with new transaminitis AST/ALT of 99/66 Hepatitis profile unremarkable Monitor LFTs Hypertension -at home - on amlodipine and Lisinopril - will try monotherapy - monitor on Lisinopril alone and adjust Hypothyroidism Continue home Synthroid Cerebral palsy/muscle spasm/contracture Continue home gabapentin PT/OT eval FEN Heart healthy diet Electrolytes: Monitor and replete when necessary Lovenox for DVT prophylaxis Case management consulted - [facility]- [facility] hopefully Odalys Quiroz MD Aug 01, 2017 10:04
--- NOTE | 2017-08-01 10:50 | HHI.PR ---
Objective Vital Signs Date Time Temp Pulse Resp B/P (MAP) Pulse Ox O2 Delivery O2 Flow Rate FiO2 08/01/17 08:00 98.9 62 18 144/57 (86) 98 08/01/17 04:00 97.9 60 19 122/66 (84) 96 08/01/17 00:20 98.4 66 20 128/68 (88) 97 07/31/17 20:40 97.5 67 20 131/62 (85) 97 07/31/17 16:00 98.1 62 18 131/66 (87) 94 07/31/17 12:00 98.0 65 18 126/60 (82) 99 I/O 07/31/17 07/31/17 07/31/17 08/01/17 08/01/17 08/01/17 07:00 15:00 23:00 07:00 15:00 23:00 Intake Total 800 ml 800 ml Output Total 1600 ml 400 ml 900 ml Balance -1600 ml 400 ml -100 ml Intake Oral 800 ml 800 ml Output Urine Total 1600 ml 400 ml 900 ml # Bowel Movements 0 0 Result Diagram: 07/29/17 0645 07/31/17 0730 Imaging Last Impressions Chest X-Ray 07/28/17 0154 Signed Impressions: Service Date/Time: Friday, July 28, 2017 02:26 - CONCLUSION: No acute cardiopulmonary abnormality is identified. There are persistent calcified mediastinal lymph nodes and bilateral calcified lung granulomas. Adam Mohan MD Other Results Laboratory Tests Test 07/30/17 11:53 07/31/17 07:30 Vancomycin Level Trough 12.1 MCG/ML Creatinine 0.69 MG/DL Estimat Glomerular Filtration Rate 85 ML/MIN Medications and IVs Current Medications Medications (Trade) Dose Ordered Sig/Mykel Route Start Time Stop Time Status Last Admin (NS Flush) 2 ml UNSCH PRN IV FLUSH 07/28/17 03:30 (NS Flush) 2 ml BID IV FLUSH 07/28/17 09:00 07/31/17 20:28 (Tylenol) 650 mg Q4H PRN PO 07/28/17 03:30 07/31/17 20:28 (Zofran Inj) 4 mg Q6H PRN IVP 07/28/17 03:30 (Lovenox Inj) 40 mg Q24H SQ 07/28/17 04:00 08/01/17 05:15 (Narcan Inj) 0.4 mg UNSCH PRN IV PUSH 07/28/17 03:30 Pharmacy Profile Note 0 ml @ 0 mls/hr UNSCH OTHER 07/28/17 03:30 (Lotrimin 1% Top Soln) 1 applic Q12HR TOPICAL 07/28/17 09:00 08/01/17 08:42 (Mycostatin Powder) 1 applic Q8HR TOPICAL 07/28/17 06:00 08/01/17 05:15 (Prinivil) 10 mg DAILY PO 07/28/17 09:00 08/01/17 08:41 (Neurontin) 400 mg HS PO 07/28/17 21:00 07/31/17 20:27 (Synthroid) 75 mcg HS PO 07/28/17 21:00 07/31/17 20:27 (Miralax) 17 gm DAILY PO 07/28/17 09:00 08/01/17 08:41 (Desyrel) 50 mg HS PRN PO 07/28/17 03:45 07/31/17 20:27 Patient Own Medication PT OWN MED: LINZ... DAILY PO 07/28/17 09:00 Vancomycin/Sodium Chloride 200 ml @ 200 mls/hr Q18H IV 07/29/17 00:00 08/01/17 00:15 (Diflucan) 100 mg DAILY PO 07/28/17 16:45 08/01/17 08:41 (Benadryl) 25 mg Q4H PRN PO 07/30/17 00:30 07/30/17 00:41 (Baciguent Oint) 1 applic Q8HR TOPICAL 07/30/17 09:00 08/01/17 05:14 Miscellaneous Information SPECIFIC LAB TO BE DRAWN:VANCO TROUGH DATE TO... ONCE ONCE .XX 08/02/17 11:45 08/02/17 11:46 (Vibramycin) 100 mg BID PO 07/30/17 21:00 08/01/17 08:40 (Xylocaine 1% Inj) 30 ml UNSCH X1 PRN OTHER 07/31/17 13:15 08/01/17 13:14 Marisol Ji DPM Aug 01, 2017 10:50
--- NOTE | 2017-08-01 10:55 | PD.CONS ---
History of Present Illness Service Foot and Ankle Surgery/Podiatry Consult Requested By Reason for Consult Left hallux paronychia Primary Care Physician Terence Askew DO Diagnoses: History of Present Illness Podiatry consulted for 67-year-old female with left hallux paronychia. She states her toe is tender to palpation, and she has been unable to follow up with someone to help her take care of the infection. Patient denies nausea vomiting fevers or chills. Review of Systems Constitutional: DENIES: Fever Respiratory: DENIES: Cough, Shortness of breath Cardiovascular: DENIES: Chest pain, Palpitations Gastrointestinal: DENIES: Abdominal pain Integumentary: DENIES: Abnormal pigmentation Neurologic: COMPLAINS OF: Abnormal gait Psychiatric: DENIES: Anxiety, Confusion Past Family Social History Allergies: Coded Allergies: Sulfa (Sulfonamide Antibiotics) (Unverified Allergy, Severe, 07/28/17) penicillin G (Unverified Allergy, Severe, PCN CAUSES HIVES PER H&P, 07/28) Past Medical History CP Active Ordered Medications Current Medications Medications (Trade) Dose Ordered Sig/Mykel Route Start Time Stop Time Status Last Admin (NS Flush) 2 ml UNSCH PRN IV FLUSH 07/28/17 03:30 (NS Flush) 2 ml BID IV FLUSH 07/28/17 09:00 07/31/17 20:28 (Tylenol) 650 mg Q4H PRN PO 07/28/17 03:30 07/31/17 20:28 (Zofran Inj) 4 mg Q6H PRN IVP 07/28/17 03:30 (Lovenox Inj) 40 mg Q24H SQ 07/28/17 04:00 08/01/17 05:15 (Narcan Inj) 0.4 mg UNSCH PRN IV PUSH 07/28/17 03:30 Pharmacy Profile Note 0 ml @ 0 mls/hr UNSCH OTHER 07/28/17 03:30 (Lotrimin 1% Top Soln) 1 applic Q12HR TOPICAL 07/28/17 09:00 08/01/17 08:42 (Mycostatin Powder) 1 applic Q8HR TOPICAL 07/28/17 06:00 08/01/17 05:15 (Prinivil) 10 mg DAILY PO 07/28/17 09:00 08/01/17 08:41 (Neurontin) 400 mg HS PO 07/28/17 21:00 07/31/17 20:27 (Synthroid) 75 mcg HS PO 07/28/17 21:00 07/31/17 20:27 (Miralax) 17 gm DAILY PO 07/28/17 09:00 08/01/17 08:41 (Desyrel) 50 mg HS PRN PO 07/28/17 03:45 07/31/17 20:27 Patient Own Medication PT OWN MED: LINZ... DAILY PO 07/28/17 09:00 Vancomycin/Sodium Chloride 200 ml @ 200 mls/hr Q18H IV 07/29/17 00:00 08/01/17 00:15 (Diflucan) 100 mg DAILY PO 07/28/17 16:45 08/01/17 08:41 (Benadryl) 25 mg Q4H PRN PO 07/30/17 00:30 07/30/17 00:41 (Baciguent Oint) 1 applic Q8HR TOPICAL 07/30/17 09:00 08/01/17 05:14 Miscellaneous Information SPECIFIC LAB TO BE DRAWN:VANCO TROUGH DATE TO... ONCE ONCE .XX 08/02/17 11:45 08/02/17 11:46 (Vibramycin) 100 mg BID PO 07/30/17 21:00 08/01/17 08:40 (Xylocaine 1% Inj) 30 ml UNSCH X1 PRN OTHER 07/31/17 13:15 08/01/17 13:14 Physical Exam Vital Signs Vital Signs Date Time Temp Pulse Resp B/P (MAP) Pulse Ox O2 Delivery O2 Flow Rate FiO2 08/01/17 08:00 98.9 62 18 144/57 (86) 98 08/01/17 04:00 97.9 60 19 122/66 (84) 96 08/01/17 00:20 98.4 66 20 128/68 (88) 97 07/31/17 20:40 97.5 67 20 131/62 (85) 97 07/31/17 16:00 98.1 62 18 131/66 (87) 94 07/31/17 12:00 98.0 65 18 126/60 (82) 99 Physical Exam GENERAL: This is a well-nourished, well-developed patient, in no apparent distress. SKIN: Erythema to left hallux proximal nail border HEAD: Atraumatic. Normocephalic. EYES: Pupils equal round and reactive. Extraocular motions intact. No scleral icterus. No injection or drainage. ENT: Airway patent. NECK: Trachea midline. RESPIRATORY: Non labored breathing. MUSCULOSKELETAL: No calf tenderness. Negative Homans sign bilaterally. NEUROLOGICAL: Awake and alert. Vasc: DP/PT 2/4, [employer] under 3 secs x5 digits. Mild edema noted to proximal nail border. Neuro: Gross sensation intact. Derm: Increased erythema with serous drainage to proximal nail border of left hallux. No ascending erythema noted. MSK: Pain on palpation to left hallux. Laboratory Date/Time Source Procedure Growth Status 07/28/17 01:55 Blood Peripheral Aerobic Blood Culture - Preliminary NO GROWTH IN 3 DAYS Resulted 07/28/17 01:55 Blood Peripheral Anaerobic Blood Culture - Preliminary NO GROWTH IN 3 DAYS Resulted Result Diagram: 07/29/17 0645 07/31/17 0730 Imaging Last Impressions Chest X-Ray 07/28/17 0154 Signed Impressions: Service Date/Time: Friday, July 28, 2017 02:26 - CONCLUSION: No acute cardiopulmonary abnormality is identified. There are persistent calcified mediastinal lymph nodes and bilateral calcified lung granulomas. Adam Mohan MD Assessment and Plan Assessment and Plan 67 year old female with h/o CP with paronychia to the left hallux Patient examined and evaluated with all questions answered Consent obtained through daughter Patient also in agreement with procedure Left hallux marked Time-out taken with nurse present Procedure: 1 percent lidocaine plain was infiltrated about the left hallux following alcohol prep 5 milliliters total. Once left hallux was anesthetized, Elevator was utilized to free up the nail from nail bed. Bottle cap technique was utilized to remove nail from the left hallux. Nail bed was then inspected there is noted to be no lacerations. Patient tolerated procedure and anesthesia well. Left hallux was dressed with Adaptic, 4x4 s, Peri Continue daily dressing changes with Adaptic 4x4s and Peri Patient to follow up with me 1 week after discharge in office Will place podiatry discharge orders Marisol Ji DPM Aug 01, 2017 10:55
[2017-08-01] MEDS ORDERED: BISACODYL 10 MG SUPP RECTAL ONE (11:45)
[2017-08-01] MEDS ORDERED: LACTULOSE SYRUP 20 GM/30 ML CUP PO ONE (11:45)
[2017-08-01 12:00] VITALS: BP 130/61; PULSE 66; RESP 18; TEMP 98.6; O2SAT 99
[2017-08-02] MEDS ORDERED: PHARMACY ORDERED LAB ONE (11:45)
== END 2017-08-01 17:36 | DRG 603 ==
LOC: NEPC 00:32 → NEDA 03:29 → N05A 06:15
PROVIDERS: ADMIT Internal Medicine; ATTEND Internal Medicine
PROC: 0HTRXZZ Resection of Toe Nail, External Approach (ICD-10-PCS; principal; 2017-08-01)
DX: L03.112 Cellulitis of left axilla (principal); L03.311 Cellulitis of abdominal wall; I10 Essential (primary) hypertension; B37.2 Candidiasis of skin and nail; G80.9 Cerebral palsy, unspecified; F32.9 Major depressive disorder, single episode, unspecified; L03.314 Cellulitis of groin; L03.111 Cellulitis of right axilla; N61.0 Mastitis without abscess; L03.032 Cellulitis of left toe; M62.838 Other muscle spasm; E03.9 Hypothyroidism, unspecified; R74.0 Nonspecific elevation of levels of transaminase and lactic acid dehydrogenase [LDH]; F41.9 Anxiety disorder, unspecified; H91.91 Unspecified hearing loss, right ear; Z99.3 Dependence on wheelchair; Z96.652 Presence of left artificial knee joint; Z96.642 Presence of left artificial hip joint; Z86.73 Personal history of transient ischemic attack (TIA), and cerebral infarction without residual deficits
CPT/HCPCS: 51702; 71045; 80053; 80074; 80202; 81001; 82550; 82565; 84443; 85025; 85610; 85730; 87040; 93005; J1650; J3370